=== PATIENT | female | born 1975 | race Two or more races ===

== ENCOUNTER → 2020-03-22 08:22 | Outpatient (REF) | payer OTHER, SELFPAY ==
--- NOTE | 2020-03-22 08:29 | CA_ITS ---
Transthoracic Echocardiogram Patient (Last, First, Middle): Linda Wilson, Gender: Female Date of : 1975 Age: 44 Procedure Date: 03/22/2020 Procedure Type: Transthoracic Echocardiogram Location: OP Height: 165.1 cm Weight: 90.72 kg BSA: 1.98 m2 Heart Rate: bpm BP: 128 / 70 mmHg [employer]: Referring MD: Benito Haynes DO Symptoms: R00.0 - Tachycardia, unspecified Study Quality: Fair ECG Rhythm: Sinus Conclusions: - The left ventricular systolic function is normal. The visually estimated ejection fraction is between 55-60%. - No obvious valvular pathology seen on this study. Findings Left Ventricle Normal left ventricular cavity size. There is normal left ventricular wall thickness. The left ventricular systolic function is normal. The visually estimated ejection fraction is between 55-60%. There is no evidence of regional wall motion abnormalities. E/E prime ratio is between 8 and 15 consistent with indeterminate filling pressures. Evidence suggests grade I (mild) diastolic dysfunction. Right Ventricle There is normal right ventricular systolic function. Top normal right ventricular size. Atria The left atrium is normal in size. The right atrium is normal in size. Aortic Valve There is a normal trileaflet aortic valve. There is no aortic valve stenosis. There is no aortic valve regurgitation. Mitral Valve The mitral valve appears normal. There is trace mitral valve regurgitation. There is no mitral valve stenosis. Pulmonic Valve The pulmonic valve was not well visualized. Tricuspid Valve Normal tricuspid valve structure. There is trace tricuspid valve regurgitation. The pulmonary artery systolic pressure is normal. Great Vessels The aortic annulus, sinuses of valsalva, and asc aorta are normal in size. Venous The inferior vena cava is normal in size and collapses greater than 50% with inspiration. Pericardium/Pleural There is no evidence of pericardial effusion. Prior Study Comparison No prior study available for comparison. Recommendations, Care & Conclusions No obvious valvular pathology seen on this study. Measurements 2D Linear Measurements IVSd: 1.02 0.6-0.9/0.6-1.0 cm LVIDd: 4.41 3.9-5.3/4.2-5.9 cm LVIDd Index: 2.23 2.4-3.2/2.2-3.1 cm/m2 LVIDs: 2.77 2.0-3.6 cm LVPWd: 1.04 0.7-1.1 cm Ao Root: 3.00 2.1-3.5 cm LA Diam: 3.70 2.7-3.8/3.0-4.0 cm LAIDs Index: 1.87 1.5-2.3 cm/m2 LV Mass: 192.48 67-162/88-224 g LV Mass Index: 97.21 43-95/49-115 g/m2 LVOT Diam: 2.20 3.0+(-)1.3 cm Mitral Valve MV Pk E: 0.71 MV PK A: 0.74 MV Decel Time: 165.00 E/A: 1.00 E'Lateral: 6.96 E'Medial: 5.44 E/E' Med: 13.00 E/E' Lat: 10.20 PHT: 48.00 MVA PHT: 4.58 Decel [place]: 4.28 Aortic Valve AoV Pk Edilberto: 1.42 AoV Mn Edilberto: 0.99 AoV VTI: 0.34 AoV Pk Grad: 8.00 Aov Mn Grad: 5.00 RAVINDRA Cont.VTI: 2.94 LVOT LVOT Pk Edilberto: 0.97 LVOT Mn Edilberto: 0.64 LVOT VTI: 0.26 LVOT Pk Grad: 4.00 LVOT Mn Grad: 2.00 LVOT Diam: 2.20 LVOT Area: 3.80 Diastolic Function MV Pk E: 0.71 MV Pk A: 0.74 E/A: 1.00 E'Medial: 5.44 E/E' Med: 13.00 E' Laterial: 6.96 E/E' Lat: 10.20 Tricuspid Valve TR Pk Edilberto: 2.28 TR Pk Grad: 21.00 RA Press: 3.00 RVSP: 24.00 Great Vessels Aorta Ao Root-2D: 3.00 2.0-3.7 cm Ao Asc: 3.30 2.1-3.4 cm Pulmonary Valve PV Pk Edilberto: 1.11 Peak PV Grad: 5.00 Updated in Other Vendor System with Status of Final Iraj Bartholomew MD electronically signed on 03/22/2020 2:25:03 PM with status of Final
== END ==
LOC: HO.CARD 08:22
PROVIDERS: PCP Hospitalist; Visit Provider Hospitalist
DX: R00.0 Tachycardia, unspecified (principal)
CPT/HCPCS: 93306

== ENCOUNTER → 2020-04-01 09:27 | Outpatient (REF) | payer OTHER, SELFPAY ==
--- NOTE | 2020-04-01 09:32 | ECG_ITS ---
Hook-up date: 2020-04-01 09:59:00 Duration: 47:59:00 Test Indications: TACHYCARDIA Medications: 334588 QRS complexes 3 Ventricular ectopics which represent <1 % of total QRS comp. * Supraventricular ectopics which represent % of total QRS comp. * Paced QRS complexs which represent % of total QRS comp. VENTRICULAR ECTOPY 3 Isolated 0 Bigeminal Cycles 0 Couplets 0 Runs 0 Beats in Runs * Beats LONGEST at * BPM at :: -- * Beats FASTEST at * BPM at :: -- SUPRAVENTRICULAR ECTOPY * Isolated * Couplets * Runs * Beats in Runs * Beats LONGEST at * BPM at :: -- * Beats FASTEST at * BPM at :: -- HEART RATES 68 MIN at 23:23:30 2020-04-01 94 AVG 133 MAX at 06:49:53 2020-04-03 LONGEST RR 0.9040 secs at 23:23:27 2020-04-01 S-T LEVELS Channel 1 - 128 mm at 09:59:00 2020-04-01 - 128 mm at 09:59:00 2020-04-01 Channel 2 - 128 mm at 09:59:00 2020-04-01 - 128 mm at 09:59:00 2020-04-01 Channel 3 - 128 mm at 02:91:81 -- - 128 mm at 02:91:81 Underlying rhythm is sinus; Average ventricular rate 94/min; About 29% of the time, ventricular rate >100/min; No significant ectopy or arrhythmias; Patient did not report any symptoms in the diary Referred By: Benito Haynes Overread By: DENISE BRISENO
== END ==
LOC: HO.CARD 09:27
PROVIDERS: PCP Hospitalist; Visit Provider Hospitalist
DX: R00.0 Tachycardia, unspecified (principal)
CPT/HCPCS: 93225; 93226

== ENCOUNTER 2020-04-20 14:47 | Outpatient (REF) | payer OTHER, SELFPAY ==
[2020-04-20 16:32] LABS: MANUAL DIFF FLAG NO
[2020-04-20 16:37] LABS: Basophils Percent Auto 0.2 % (0-2); Eosinophils Absolute Auto 0.2 X10*3/uL (0.0-0.4); Eosinophils Percent Auto 1.8 % (0-4); Hemoglobin 12.4 g/dl (12.0-16.0); Imm Gran Abs Auto 0.03 X10*3/uL (0.00-0.03); Imm Gran Pct Auto 0.3 % (0.0-0.4); Lymphocytes Absolute Auto 2.8 X10*3/uL (1.2-4.9); Lymphocytes Percent Auto 28.4 % (20-40); Mean Corpuscular HGB Conc 32.6 g/dl (31.0-35.0); Mean Corpuscular Hemoglobin 29.6 pg (27.0-33.0); Mean Corpuscular Volume 90.7 fL (80-98); Mean Platelet Volume 9.3 fL (9.4-12.3); Monocytes Absolute Auto 0.8 X10*3/uL (0.1-1.2); Monocytes Percent Auto 7.7 % (2-11); Neutrophils Absolute Auto 6.1 X10*3/uL (2.0-8.3); Neutrophils Percent Auto 61.6 % (45-73); Platelet Count 380 X10*3/uL (160-400); Red Blood Count 4.19 X10*6/uL (4.20-5.50); White Blood Count 9.9 X10*3/uL (4.8-10.8)
[2020-04-20 16:57] LABS: Alanine Aminotransferase 8 U/L (0-31); Albumin Level 4.1 g/dL (3.5-5.0); Alkaline Phosphatase 91 U/L (39-117); Anion Gap 10 (12-20); Aspartate Amino Transferase 11 U/L (5-31); Bilirubin Total 0.3 mg/dL (0.0-1.0); Blood Urea Nitrogen 12 mg/dL (9-16); Carbon Dioxide 29 mmol/L (22-29); Chloride 104 mmol/L (96-108); Estimated Glomerular Filt Rate > 60; Glucose Random 83 mg/dL (60-115); Potassium 4.6 mmol/l (3.3-5.1); Sodium 138 mmol/L (135-145); Total Protein 6.7 g/dL (6.5-8.0)
[2020-04-20 17:21] LABS: TSH reflex Free T4 0.01 mIU/mL (0.32-4.0)
[2020-04-20 17:53] LABS: Free T4 (Free Thyroxine) 1.46 ng/dL (0.71-1.85)
== END 2020-04-20 14:48 | disposition home or self-care (01) ==
LOC: HO.LAB 14:47
PROVIDERS: Absent Provider Nurse Practitioner Family; PCP Internal Medicine; Visit Provider Internal Medicine Cardiovascular Disease
DX: R00.0 Tachycardia, unspecified (principal); R79.89 Other specified abnormal findings of blood chemistry
CPT/HCPCS: 36415; 80053; 84439; 84443; 85025; 99202

== ENCOUNTER 2022-08-22 06:09 | Outpatient (REF) | payer OTHER, SELFPAY ==
[2022-08-22 07:46] LABS: Alanine Aminotransferase 15 U/L (0-31); Alkaline Phosphatase 88 U/L (39-117); Anion Gap 14 (12-20); Aspartate Amino Transferase 11 U/L (5-31); Bilirubin Total 0.3 mg/dL (0.0-1.0); Blood Urea Nitrogen 14 mg/dL (9-16); Calcium 8.9 mg/dL (8.4-10.2); Carbon Dioxide 23 mmol/L (22-29); Chloride 107 mmol/L (96-108); Cholesterol 196 mg/dL; Estimated Glomerular Filt Rate > 60; Glucose Fasting 96 mg/dL (60-99); HDL Cholesterol 37 mg/dL; LDL Cholesterol Calculated 139 mg/dl; Potassium 4.5 mmol/L (3.3-5.1); Sodium 139 mmol/L (135-145); Total Protein 6.6 g/dL (6.5-8.0); Triglycerides 102 mg/dL
[2022-08-22 08:04] LABS: TSH reflex Free T4 3.74 uIU/mL (0.32-4.0)
== END 2022-08-22 06:10 | disposition home or self-care (01) ==
LOC: HO.LAB 06:09
PROVIDERS: PCP Hospitalist; Visit Provider Hospitalist
DX: E66.9 Obesity, unspecified (principal); E03.9 Hypothyroidism, unspecified; M06.9 Rheumatoid arthritis, unspecified
CPT/HCPCS: 36415; 80053; 80061; 84443

== ENCOUNTER 2022-09-15 12:50 | Emergency (ER) | payer OTHER, SELFPAY ==
--- NOTE | ~2022-09-15 | XR_ITS ---
EXAMINATION: XR CHEST CLINICAL INFORMATION: Shortness of breath. COMPARISON: Chest radiograph dated 03/23/2013. TECHNIQUE: 2 views of the chest were obtained. FINDINGS: No significant abnormality is noted involving the heart, lungs, mediastinum, bony thorax or soft tissues. XR/XR chest 2V IMPRESSION: No acute cardiopulmonary process.
--- NOTE | ~2022-09-15 | US_ITS ---
EXAMINATION: Noninvasive assessment of the left lower extremities with ARTERIAL DUPLEX CLINICAL INFORMATION: Left lower extremity pain and swelling TECHNIQUE: Duplex Doppler techniques with waveform analysis and measurement of velocities in the left common femoral, profunda femoris, superficial femoral, popliteal and tibial arteries were performed. COMPARISON: None FINDINGS: DIRECT DUPLEX DOPPLER FINDINGS: LEFT LEG: Common femoral artery: 83.9 cm/s, phasicity: Triphasic Profunda femoris artery: 52.9 cm/s, phasicity: Triphasic Superficial femoral artery (proximal): 88.8 cm/s, phasicity: Triphasic Superficial femoral artery (mid): 92.2 cm/s, phasicity: Triphasic Superficial femoral artery (distal): 107 cm/s, phasicity: Triphasic Popliteal artery: 66.3 cm/s, phasicity: Triphasic Posterior tibial artery: 83.4 cm/s, phasicity: Triphasic Peroneal artery: 44.1 cm/s, phasicity: Triphasic US/US arterial duplex LE IMPRESSION: Normal duplex arterial ultrasound of the left lower extremity
--- NOTE | ~2022-09-15 | US_ITS ---
EXAMINATION: US VENOUS ULTRASOUND WITH DOPPLER LOWER EXTREMITY, LEFT CLINICAL INFORMATION: Left lower extremity pain and swelling with ambulation. COMPARISON: None available. TECHNIQUE: Ultrasound of the deep veins is performed from the hip to the calf with compression sonography and color and pulse Doppler assessment. Spectral analysis with color-flow imaging is performed. FINDINGS: There is normal venous compression and respiratory variation and augmented flow. The visualized common femoral vein, superficial femoral vein, profunda femoral vein, popliteal vein, and the trifurcation region shows no evidence of deep venous thrombosis. No left popliteal cyst. The subcutaneous soft tissues are unremarkable. Additional scanning in the left foot was performed with 3 circumscribed hypoechoic foci with smooth margins identified measuring 1.1 x 0.9 x 1.0 cm, 1.3 x 0.5 x 1.1 cm and 1.0 x 0.6 x 0.9 cm. Color Doppler showed no associated hypervascularity. US/US venous duplex LE IMPRESSION: 1. No evidence for deep venous thrombosis in the visualized veins of the left lower extremity. 2. Hypoechoic nodules in the left foot are nonspecific, but demonstrate benign features. This could represent synovial cyst, ganglion cyst or fibroma's. These findings persist or enlarge, contrast-enhanced MRI should be considered for additional characterization.
--- NOTE | 2022-09-15 12:51 | ED_ITS ---
HPI - General Adult General Chief complaint: General Medical Stated complaint: sent from urgent care, blood clot? Time Seen by Provider: 09/15/22 13:02 Source: patient, RN notes reviewed and old records reviewed Mode of arrival: ambulatory History of Present Illness HPI narrative: 47-year-old female with a past medical history of rheumatoid arthritis, tachycardia, hypothyroid, presenting to the ED sent in from urgent care for left lower extremity swelling/pain and reportedly decreased pulses. Patient reports increasing left foot/ankle pain radiating up lower extremity x1 month with intermittent SOB. Admits has been following with honing machine try out setter who increased her Methotrexate without relief, had outpatient x-rays which were unremarkable on 08/08. Denies recent injury/trauma or fall, numbness/tingling, fever/chills, oral OCPs. Patient admits she does travel often, most recently to [place], and is cigarette smoker. Onset (ago): week(s) Related Data Home Medications Medication Instructions Recorded Confirmed adalimumab 40 mg/0.8 mL 40 mg subcut Q2W 08/14/22 08/14/22 subcutaneous syringe kit (Humira) folic acid 1 mg tablet 1 mg PO DAILY 08/14/22 08/14/22 methotrexate (PF) 15 mg/0.3 mL 15 mg subcut QWEEK 08/14/22 08/14/22 subcutaneous auto-injector prednisone 10 mg tablet 10 mg PO DAILY 08/14/22 08/14/22 Previous Rx's Medication Instructions Recorded levothyroxine 137 mcg tablet 137 mcg PO DAILY 30 days #30 tabs 09/12/22 Allergies Allergy/AdvReac Type Severity Reaction Status Date / Time codeine Allergy Mild Unknown Verified 09/15/22 12:53 Codeine Phosphate Allergy Intermediate Unknown Uncoded 08/14/22 10:07 Review of Systems Review of Systems: Constitutional: No Fever, No Chills ENT/Mouth: No Ear Pain, No Nasal Congestion, No sore throat, No Rhinorrhea, No Swallowing Difficulty Cardiovascular: No Chest Pain, + SOB, +edema Respiratory: No Cough, No Sputum, No Wheezing Gastrointestinal: No Nausea, No Vomiting, No Diarrhea, No Constipation, No Abdominal pain Musculoskeletal: + joint pain, No Myalgias, + Joint Swelling Skin: No Skin Lesions, No rash Neuro: No Weakness, No Numbness, No Paresthesias Yes all other systems are reviewed and are negative Constitutional: Constitutional: Reports as per [facility] Past Medical History Attestation statement: The following information was validated with the patient. Source: old records reviewed Medical History Physical exam Surgical History History of lumbar surgery Family History Family History Father No problems noted. Mother CVD (cardiovascular disease) Hypertension Chronic mental illness Social History Social History Household Members: Significant Other and Children Housing: Apartment Alcohol intake: never Patient Tobacco Use Status: Current everyday Tobacco user Cigarette Packs Per Day: 1 e-Cigarette/Vaping Use: Never Used Advance Directives: No Physical Exam ED Vital Signs: Vital Signs - 24 hr 09/15/22 12:53 Temperature 97.2 F Pulse Rate 97 Respiratory Rate 18 Blood Pressure 128/82 Pulse Oximetry 98 Oxygen Delivery Method Room Air BMI result Body Mass Index 34.4 Const General: cooperative, healthy appearing and no acute distress Orientation/consciousness: patient oriented x3 Limitations: no limitations HENMT Head: Yes normal to inspection and Yes atraumatic Ears: hearing grossly normal bilaterally General nose exam: Normal external nose present Face and sinus: Yes normal facial exam Eyes General: appearance normal, both eyes and all related structures EOM: EOMs intact bilaterally Neck Neck: Yes normal visual inspection and Yes no meningeal signs Resp Effort & Inspection: normal respiratory effort and no respiratory distress Auscultation: clear to auscultation bilaterally, no crackles, no rhonchi and no wheezes Cardio Rate: regular rate Heart sounds: S1 normal heart sound present and S2 normal heart sound present Peripheral pulses: Peripheral pulses 2+ throughout Skin Rashes: no rashes Wounds: no wounds Neuro General: patient oriented x3, tone normal and no meningeal signs Gait exam (Neuro): Normal gait present Extrem Other: + left foot/ankle with mild swelling and tenderness. No appreciable pitting edema, no calf tenderness. Pulses WNL, equal bilaterally. No erythema/warmth. Full range of motion intact. Course Course Course Narrative: RME performed by Ligia Beverly PA-C. Patient is a 47 year old assigned female at presenting to the emergency department with left leg swelling and pain. Labs and imaging ordered. Patient placed back in the waiting room pending room availability and results. -1524--mild leukocytosis at 12.4 likely from chronic prednisone use. D-dimer WNL, PE/DVT unlikely -labs otherwise reassuring. CRP minimally elevated US arterial duplex LE LT IMPRESSION: Normal duplex arterial ultrasound of the left lower extremity US venous duplex LE LT IMPRESSION: 1. No evidence for deep venous thrombosis in the visualized veins of the left lower extremity. 2. Hypoechoic nodules in the left foot are nonspecific, but demonstrate benign features. This could represent synovial cyst, ganglion cyst or fibroma's. These findings persist or enlarge, contrast-enhanced MRI should be considered for additional characterization. XR chest 2V IMPRESSION: No acute cardiopulmonary process. Results discussed with patient including worrisome signs and symptoms and strict return precautions, and when to return to the emergency department. They verbalized understanding and feel safe for discharge at this time. Medications Administered Discontinued Medications Generic Name Dose Route Start Last Admin Trade Name Freq PRN Reason Stop Dose Admin Sodium Chloride 1,000 mls @ 999 mls/hr 09/15/22 14:00 09/15/22 15:28 Ns IV 09/15/22 15:00 Infused .Q1H1M ANEL Infusion Medical Decision Making Medical Decision Making [facility] Narrative: 47-year-old female with a past medical history of rheumatoid arthritis, tachycardia, hypothyroid, presenting to the ED sent in from urgent care for left lower extremity swelling/pain and reportedly decreased pulses. On exam vital signs stable, NAD, nontoxic appearing, physical exam as noted above. Distal pulses equally intact, mild left foot/ankle swelling with tenderness, no pitting edema or calf tenderness, lungs CTA. Concern for possible DVT vs PE vs PAD vs RA flare vs sprain. Lower suspicion for fracture with outpatient negative x- rays, low suspicion for septic joint/arthritis. Unlikely gout Plan: Labs, arterial and venous duplex ultrasound, CXR Please refer to course for remaining clinical decision making, interpretation of labs/imaging results, and discussions with consultants and/or family members. Differential Diagnosis Differential Diagnoses: The differential diagnosis associated with the presentation includes As above Admission/Observation Consideration of admission/observation: Escalation of care including admission/observation considered Lab Data [facility] Lab Attestation statement: I reviewed the patient's lab results. 09/15/22 14:02 09/15/22 14:02 Labs: Lab Results 09/15/22 09/15/22 09/15/22 Range/Units 14:02 14:02 14:02 WBC 12.4 H (4.8-10.8) X10*3/uL RBC 3.91 L (4.20-5.50) X10*6/uL Hgb 12.1 (12.0-16.0) g/dl Hct 35.9 L (37.0-47.0) % MCV 91.8 (80.0-98.0) fL MCH 30.9 (27.0-33.0) pg MCHC 33.7 (31.0-35.0) g/dl RDW 14.8 (11.0-16.0) % Plt Count 390 (160-400) X10*3/uL MPV 9.1 L (9.4-12.3) fL Immature Gran % (Auto) 0.4 (0.0-0.4) % Neut % (Auto) 59.7 (45-73) % Lymph % (Auto) 30.1 (20-40) % [place] % (Auto) 8.1 (2-11) % Eos % (Auto) 1.5 (0-4) % Baso % (Auto) 0.2 (0-2) % Lymph # (Auto) 3.7 (1.2-4.9) X10*3/uL [place] # (Auto) 1.0 (0.1-1.2) X10*3/uL Eos # (Auto) 0.2 (0.0-0.4) X10*3/uL Baso # (Auto) 0.0 (0.0-0.2) X10*3/uL Abs Immat Gran (auto) 0.05 H (0.00-0.03) X10*3/uL Absolute Neuts (auto) 7.4 (2.0-8.3) x10*3/uL Absolute Nucleated RBC 0.000 (0.0-0.012) X10*3/uL Nucleated RBC % (auto) 0.0 (0.0-0.2) /100WBC ESR (0-20) MM/HR PT 11.1 (10.0-13.1) SEC INR 1.0 (0.9-1.1) APTT 30.0 (26.0-36.4) SEC D-Dimer High Sensitivty NG/ML Sodium 139 (135-145) mmol/L Potassium 4.5 (3.3-5.1) mmol/L Chloride 109 H (96-108) mmol/L Carbon Dioxide 24 (22-29) mmol/L Anion Gap 11 L (12-20) BUN 12 (9-16) mg/dL Creatinine 0.74 (0.5-1.4) mg/dL Estim Creat Clear Calc 105.3 Estimated GFR > 60 Random Glucose 89 (60-115) mg/dL Calcium 9.3 (8.4-10.2) mg/dL Magnesium 2.2 (1.6-2.6) mg/dL Total Bilirubin 0.4 (0.0-1.0) mg/dL AST 13 (5-31) U/L ALT 12 (0-31) U/L Alkaline Phosphatase 80 (39-117) U/L C-Reactive Protein 0.82 H (< or = 0.50) mg/dL Total Protein 6.8 (6.5-8.0) g/dL Albumin 4.0 (3.5-5.0) g/dL 09/15/22 09/15/22 Range/Units 14:02 14:02 WBC (4.8-10.8) X10*3/uL RBC (4.20-5.50) X10*6/uL Hgb (12.0-16.0) g/dl Hct (37.0-47.0) % MCV (80.0-98.0) fL MCH (27.0-33.0) pg MCHC (31.0-35.0) g/dl RDW (11.0-16.0) % Plt Count (160-400) X10*3/uL MPV (9.4-12.3) fL Immature Gran % (Auto) (0.0-0.4) % Neut % (Auto) (45-73) % Lymph % (Auto) (20-40) % [place] % (Auto) (2-11) % Eos % (Auto) (0-4) % Baso % (Auto) (0-2) % Lymph # (Auto) (1.2-4.9) X10*3/uL [place] # (Auto) (0.1-1.2) X10*3/uL Eos # (Auto) (0.0-0.4) X10*3/uL Baso # (Auto) (0.0-0.2) X10*3/uL Abs Immat Gran (auto) (0.00-0.03) X10*3/uL Absolute Neuts (auto) (2.0-8.3) x10*3/uL Absolute Nucleated RBC (0.0-0.012) X10*3/uL Nucleated RBC % (auto) (0.0-0.2) /100WBC ESR 29 H (0-20) MM/HR PT (10.0-13.1) SEC INR (0.9-1.1) APTT (26.0-36.4) SEC D-Dimer High Sensitivty 194 NG/ML Sodium (135-145) mmol/L Potassium (3.3-5.1) mmol/L Chloride (96-108) mmol/L Carbon Dioxide (22-29) mmol/L Anion Gap (12-20) BUN (9-16) mg/dL Creatinine (0.5-1.4) mg/dL Estim Creat Clear Calc Estimated GFR Random Glucose (60-115) mg/dL Calcium (8.4-10.2) mg/dL Magnesium (1.6-2.6) mg/dL Total Bilirubin (0.0-1.0) mg/dL AST (5-31) U/L ALT (0-31) U/L Alkaline Phosphatase (39-117) U/L C-Reactive Protein (< or = 0.50) mg/dL Total Protein (6.5-8.0) g/dL Albumin (3.5-5.0) g/dL Radiology Impression Discussion of test interpretation with radiology: I have reviewed the radiologist's reading. External Record Review External record reviewed: Inpatient record, Office record, Outpatient record, Prior outpatient labs, Prior outpatient radiology, Primary care record and Outside ED record Tests considered The following testing was considered but not selected: As above Discharge Plan Discharge Clinical Impression: Left leg swelling, Left foot pain Patient Disposition: Home, Self-Care Instructions: Arthralgia (ED) Additional Instructions: Your ultrasounds were negative for blood clot or arterial stenosis Your blood work was also reassuring Please wear compression stocking Elevate your legs Continue home prescribed medications Follow-up with her doctor and your honing machine try out setter Prescriptions: No Action levothyroxine 137 mcg tablet 137 mcg PO DAILY 30 Days Qty: 30 3RF prednisone 10 mg tablet 10 mg PO DAILY folic acid 1 mg tablet 1 mg PO DAILY Humira 40 mg/0.8 mL syringe kit 40 mg subcut Q2W methotrexate (PF) 15 mg/0.3 mL auto-injector 15 mg subcut QWEEK Referrals: Charo Gonzalez NP [Primary Care Provider] - 3 days Interventions: ED Discharge Assessment Last Done: 09/15/22 15:35 Discharge Date/Time: 09/15/22 15:36
[2022-09-15 12:53] VITALS: BP 128/82; PULSE 97; RESP 18; TEMP 36.2; O2SAT 98; BMI 34.4
[2022-09-15] MEDS: 0.9 % Sodium Chloride 1,000 ML 999 ML IV (14:22)
[2022-09-15 14:23] LABS: MANUAL DIFF FLAG NO
[2022-09-15 14:30] LABS: Basophils Percent Auto 0.2 % (0-2); Eosinophils Absolute Auto 0.2 X10*3/uL (0.0-0.4); Eosinophils Percent Auto 1.5 % (0-4); Hematocrit 35.9 % (37.0-47.0); Hemoglobin 12.1 g/dl (12.0-16.0); Imm Gran Abs Auto 0.05 X10*3/uL (0.00-0.03); Imm Gran Pct Auto 0.4 % (0.0-0.4); Lymphocytes Absolute Auto 3.7 X10*3/uL (1.2-4.9); Lymphocytes Percent Auto 30.1 % (20-40); Mean Corpuscular HGB Conc 33.7 g/dl (31.0-35.0); Mean Corpuscular Hemoglobin 30.9 pg (27.0-33.0); Mean Corpuscular Volume 91.8 fL (80.0-98.0); Mean Platelet Volume 9.1 fL (9.4-12.3); Monocytes Percent Auto 8.1 % (2-11); Neutrophils Absolute Auto 7.4 x10*3/uL (2.0-8.3); Neutrophils Percent Auto 59.7 % (45-73); Platelet Count 390 X10*3/uL (160-400); Red Blood Count 3.91 X10*6/uL (4.20-5.50); Red Cell Distribution Width 14.8 % (11.0-16.0); White Blood Count 12.4 X10*3/uL (4.8-10.8)
[2022-09-15 14:47] LABS: Prothrombin Time 11.1 SEC (10.0-13.1)
[2022-09-15 14:50] LABS: D Dimer High Sensitivity 194 NG/ML
[2022-09-15 15:16] LABS: Alanine Aminotransferase 12 U/L (0-31); Alkaline Phosphatase 80 U/L (39-117); Anion Gap 11 (12-20); Aspartate Amino Transferase 13 U/L (5-31); Bilirubin Total 0.4 mg/dL (0.0-1.0); Blood Urea Nitrogen 12 mg/dL (9-16); C Reactive Protein 0.82 mg/dL (< or = 0.50); Calcium 9.3 mg/dL (8.4-10.2); Carbon Dioxide 24 mmol/L (22-29); Chloride 109 mmol/L (96-108); Creatinine Clr Calc Pharmacy 105.3; Estimated Glomerular Filt Rate > 60; Glucose Random 89 mg/dL (60-115); Magnesium 2.2 mg/dL (1.6-2.6); Potassium 4.5 mmol/L (3.3-5.1); Sodium 139 mmol/L (135-145); Total Protein 6.8 g/dL (6.5-8.0)
[2022-09-15 15:30] LABS: Erythrocyte Sedimentation Rate 29 MM/HR (0-20)
== END 2022-09-15 15:36 | disposition home or self-care (01) ==
PROVIDERS: Physician Assistant; Physician Assistant Medical; Emergency Provider Emergency Medicine Emergency Medical Services; PCP Hospitalist
DX: M79.662 Pain in left lower leg (principal); M79.89 Other specified soft tissue disorders; F17.210 Nicotine dependence, cigarettes, uncomplicated
CPT/HCPCS: 36415; 71046; 80053; 83735; 85025; 85379; 85610; 85652; 85730; 86140; 93926; 93971; 96360; 99283; 99284

== ENCOUNTER 2022-09-25 09:58 | Outpatient (REF) | payer OTHER, SELFPAY ==
--- NOTE | ~2022-09-25 | MM_ITS ---
EXAMINATION: MM SCREENING DIGITAL BREAST TOMOSYNTHESIS, BILATERAL CLINICAL INFORMATION: Screening. Asymptomatic. Benign right stereotactic biopsy 07/21/2019 (fibrocystic changes and microcalcifications, no atypia or malignancy). The lifetime risk of breast cancer based on the Tyrer-Cuzick Model is 8%. COMPARISON: Mammography: 07/21/2019, 07/13/2019, 02/23/2017 (baseline); ultrasound right breast 03/12/2017. TECHNIQUE: Digital breast tomosynthesis is performed in both the craniocaudal and mediolateral oblique views along with computer-aided detection (CAD). Synthesized 2D images are generated from the tomosynthesis. FINDINGS: There are scattered areas of fibroglandular density (ACR BI-RADS breast composition Category b). Breast tissue composition borders on heterogeneously dense. Right breast parenchymal pattern is similar to prior studies. There is a biopsy clip marker mid 6:00 position. The calcifications are no longer demonstrated. No recurrent calcifications. Small cyst anterior upper right breast is decreased since 2017. Left breast has new circumscribed nodule mid 3:00 position measuring around 0.8 cm, possibly a cyst. Patient will be recalled for additional imaging. Remainder of left breast is unremarkable. No abnormal calcifications. Bilateral axilla and skin contours are unremarkable. MM/MM tomosynthesis screening BI IMPRESSION: Left: -Circumscribed 8 mm nodule mid 3:00 position, possibly a cyst. Right: -No mammographic evidence of malignancy. ASSESSMENT: BI-RADS 0: Incomplete - Need Additional Imaging Evaluation RECOMMENDATION: 1. Targeted ultrasound left breast. 2. Radiology department staff will contact the patient for additional imaging. This patient's information was entered into a reminder system with a target due date for their next mammogram.
== END 2022-09-25 09:59 | disposition home or self-care (01) ==
LOC: HO.MAMMO 09:58
PROVIDERS: PCP Hospitalist; Visit Provider Hospitalist
DX: Z12.31 Encounter for screening mammogram for malignant neoplasm of breast (principal)
CPT/HCPCS: 77063; 77067

== ENCOUNTER 2022-10-05 12:43 | Outpatient (REF) | payer OTHER, SELFPAY ==
--- NOTE | ~2022-10-05 | US_ITS ---
EXAMINATION: US DIAGNOSTIC ULTRASOUND BREAST, LEFT CLINICAL INFORMATION: Recall from screening for new circumscribed nodule 0.8 cm mid 3:00 position, possibly a cyst. COMPARISON: Mammography 09/25/2022, 07/09/2019 TECHNIQUE: Ultrasound left breast is targeted to the outer quadrants using grayscale imaging and color Doppler without and with harmonics. FINDINGS: There is a simple cyst 3:00 position 7 cm from nipple measuring approximately 8 x 6 mm corresponding to the finding on mammography. Small adjacent satellite cyst present under 5 mm. There is increased through-transmission of sound. No associated color flow. No solid mass or architectural abnormality. Results are discussed with the patient at time of visit. US/US breast LT limited IMPRESSION: - Simple cyst 3:00 position corresponding to finding on mammography. ASSESSMENT: BI-RADS 2: Benign RECOMMENDATION: Routine annual mammography screening. This patient's information was entered into a reminder system with a target due date for their next mammogram.
== END 2022-10-05 12:44 | disposition home or self-care (01) ==
LOC: HO.MAMMO 12:43
PROVIDERS: PCP Hospitalist; Visit Provider Hospitalist
DX: N63.25 Unspecified lump in the left breast, overlapping quadrants (principal)
CPT/HCPCS: 76642

== ENCOUNTER 2022-11-07 10:22 | Outpatient (AMB) | payer OTHER, SELFPAY ==
--- NOTE | 2022-11-07 10:24 | MHC.OFFVIS ---
Intake Vital Signs 11/07/22 10:25 Height 5 ft 5 in Weight 205 lb 0.478 oz BMI 34.1 Intake Visit Reasons: New Pt colonoscopy screening Intake Note: Linda presents in the office as a new patient for a colo screening. CC: No concerns today Allergies codeine Allergy (Mild, Verified 11/07/22 10:27) Unknown Codeine Phosphate Allergy (Intermediate, Uncoded 11/07/22 10:27) Unknown HPI HPI Comments History of Present Illness Details 47 year old female presenting to the office for discussion of colon cancer screening. Patient is at average risk of colon cancer due to no family history of colon cancer or advanced colon polyps in first degree relatives. Mom has polyps but colos every 5 years so likely not advanced polyps. Patient does not have any other gastrointestinal symptoms to include abdominal pain, nausea, vomiting, diarrhea, blood in stool, weight loss. Labs reviewed to confirm patient does not have anemia. Other PMH is pertinent for RA (on MTX and etanercept), and hypothyroidism. Smokes 1 PPD x 20 years. Rare etOH use. PFSH Medical History Physical exam Surgical History History of lumbar surgery Family History Father No problems noted. Mother CVD (cardiovascular disease) Hypertension Chronic mental illness Social History Household Members: Significant Other and Children Housing: Apartment Alcohol intake: never Patient Tobacco Use Status: Current everyday Tobacco user Cigarette Packs Per Day: 1 e-Cigarette/Vaping Use: Never Used Review of Systems Const All systems reviewed & are unremarkable except as noted in HPI and below Physical Exam Vital Signs: BMI result Body Mass Index 34.1 Gen appear: NAD, well nourished HEENT: no icterus, no cervical lymphadenopathy Chest: clear to auscultation CVS: Regular S1/S2 Abd: soft, nontender, nondistended Ext: no peripheral edema Neuro: A/Ox3, noted to move all extremities spontaneously Assessment & Plan Assessment & Plan (1) Screen for colon cancer: Code(s): Z12.11 - Encounter for screening for malignant neoplasm of colon (2) Tobacco abuse: Code(s): Z72.0 - Tobacco use Plan At average risk for CRC. Offered both one step and two step screening. Pt prefers one step testing i.e colonoscopy. Procedure and instructions reviewed in detail. Split PEG prep Rxed and instructions given as a handout as well. She is aware this will be booked on an elective basis. Follow up after colo as needed. Medications: New peg 3350-electrolytes 236-22.74-6.74 -5.86 gram (Golytely) as per split prep instructions, until fecal effluent is clear 240 mL PO Q10M 1 day 4,000 mL 0RF colonoscopy Coding Level of Care Code New Pt Level 3 (72271) Diagnoses Screen for colon cancer Z12.11 Tobacco abuse Z72.0
[2022-11-07 10:25] VITALS: BMI 34.1
== END 2022-11-07 11:17 | disposition home or self-care (01) ==
PROVIDERS: PCP Hospitalist; Visit Provider Internal Medicine
DX: Z12.11 Encounter for screening for malignant neoplasm of colon (principal); Z72.0 Tobacco use
CPT/HCPCS: 99203

== ENCOUNTER → 2022-11-07 10:22 | Outpatient (BNVA) | payer OTHER, SELFPAY | PROVIDERS: PCP Hospitalist; Visit Provider Internal Medicine ==

== ENCOUNTER 2022-12-10 08:34 | Outpatient (REF) | payer OTHER, SELFPAY ==
[2022-12-11 02:20] LABS: TSH reflex Free T4 2.53 uIU/mL (0.32-4.0)
== END 2022-12-10 08:35 | disposition home or self-care (01) ==
LOC: HO.LAB 08:34
PROVIDERS: PCP Hospitalist; Visit Provider Nurse Practitioner Family
DX: E03.9 Hypothyroidism, unspecified (principal)
CPT/HCPCS: 36415; 84443

== ENCOUNTER 2023-06-04 11:19 | Outpatient (AMB) | payer OTHER, SELFPAY ==
[2023-06-04 11:38] VITALS: BP 124/64; PULSE 77; O2SAT 97; BMI 33.9
--- NOTE | 2023-06-04 11:38 | MHC.PC.OV ---
Vital Signs 06/04/23 11:38 Height 5 ft 5 in Weight 203 lb 8 oz BMI 33.9 BP 124/64 Blood Pressure Location Lt brachial Pulse 77 Pulse Source Pulse Oximeter Pulse Oximetry (%) 97 Oxygen Delivery Method Room Air Intake Visit Reasons: 3mth Weight/Hypothyroidism Trans. from [facility] Intake Note: Patient is here for follow up on weight and hypothyroid, patient notices spots on her legs on her face, after taking enbrel with methotrexate, prednisone and folic acid. Allergies codeine Allergy (Mild, Verified 06/04/23 11:41) Unknown Codeine Phosphate Allergy (Intermediate, Uncoded 06/04/23 11:41) Unknown Tobacco use date assessed: 06/04/23 Dental Screening Dental Screen Date: 06/04/23 Did you have a dental visit in the last 12 months?: No Did you have a dental problem in the last 6 months where you did not have access to dental care?: No Was dental information given to patient?: Patient has dentist HPI 3mth Weight/Hypothyroidism Trans. from [place] HPI Details Transfer of Care Prior PCP:?SV Last office visit/CPE: Acute issue(s): Rash Fatigue Heavy periods PMHx: Rheumatoid arthritis, obesity, hypothyroidism, Familial tremor SurgHx: FHx: SocHx: PFSH Medical History Physical exam Surgical History History of lumbar surgery Family History Father No problems noted. 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 Hearing needs: No Vision needs: No Questionnaire Thrive Questionnaire Date Thrive assessed: 08/14/22 LANDRY-7 AMB Questionnaire LANDRY-7 Date LANDRY - 7 assessed: 08/14/22 Source: Developed by Marivel HaydenW. Fidel, Valeriano Kay and colleagues, with an educational butch from [employer]. Review of Systems Skin/Breast Reports rash Physical exam (Primary Care) Vital Signs: Last Vital Signs Pulse 77 06/04/23 11:38 BP 124/64 06/04/23 11:38 Pulse Ox 97 06/04/23 11:38 Oxygen Delivery Method Room Air 06/04/23 11:38 BMI result Body Mass Index 33.9 Tobacco/Smoking Status: Tobacco use Status Tobacco use date assessed 06/04/23 06/04/23 11:45 Patient Tobacco Use Status Current everyday Tobacco 06/04/23 11:45 e-Cigarette/Vaping Use Never Used 06/04/23 11:45 Thrive Assessment: Date of Thrive Assessment Date Thrive assessed 08/14/22 06/04/23 11:45 Assessment and Plan Assessment & Plan (1) Obesity (BMI 30.0-34.9): Code(s): E66.9 - Obesity, unspecified Plan: Work?on?diet?and?exercise?as?tolerated.??Currently?has?difficulty?exercising?due?to?rheumatoid?arthritis. (2) Hypothyroidism (acquired): Code(s): E03.9 - Hypothyroidism, unspecified Plan: TSH?was?within?normal?limits?at?last?check Taking?levothyroxine?as?prescribed Due?to?recheck?thyroid?hormone?level (3) Rheumatoid arthritis: Code(s): M06.9 - Rheumatoid arthritis, unspecified Plan: Taking?Enbrel,?methotrexate?and?prednisone?as?prescribed?and?followed?by?rheumatology?at[facility] Continue?current?medications Patient?has?rash?on?legs?which?may?be?secondary?to?her?medications?and?if?treatment?below?does?not?help?she?should?follow-up?with?her?business banking manager. (4) Rash: Code(s): R21 - Rash and other nonspecific skin eruption Plan: Rash?on?legs Will?give?her?a?steroid?cream?and?I?advised?a?moisturizer?as?well. If?not?improving?check?with?business banking manager If?still?having?difficulty?will?refer?to?Rheumatology. (5) Hypersomnolence: Code(s): G47.10 - Hypersomnia, unspecified Plan: Daytime?fatigue?and?snoring. Referred?to?Sleep?Medicine (6) Familial tremor: Code(s): G25.0 - Essential tremor (7) Heavy periods: Code(s): N92.0 - Excessive and frequent menstruation with regular cycle (8) Laboratory exam ordered as part of routine general medical examination: Code(s): Z00.00 - Encounter for general adult medical examination without abnormal findings (9) Bruising: Code(s): T14.8XXA - Other injury of unspecified body region, initial encounter Orders: Orders Free T4 (Free Thyroxine) Today E03.9 - Hypothyroidism, unspecified Lipid Panel Today Z00.00 - Encounter for general adult medical examination without abnormal findings Complete Blood Count Auto Diff Today Z00.00 - Encounter for general adult medical examination without abnormal findings Partial Thromboplastin Time Today N92.0 - Excessive and frequent menstruation with regular cycle, T14.8XXA - Other injury of unspecified body region, initial encounter Thyroid Stimulating Hormone Today E03.9 - Hypothyroidism, unspecified Triiodothyronine T3 Total Today E03.9 - Hypothyroidism, unspecified Comprehensive [place]. Panel Fast Today Z00.00 - Encounter for general adult medical examination without abnormal findings Microalbumin, Random (w Creat) Today I10 - Essential (primary) hypertension Von Willebrand Factor Antigen Today N92.0 - Excessive and frequent menstruation with regular cycle, T14.8XXA - Other injury of unspecified body region, initial encounter Prothrombin Time INR Today N92.0 - Excessive and frequent menstruation with regular cycle, T14.8XXA - Other injury of unspecified body region, initial encounter Referrals Sleep Medicine Referral G47.10 - Hypersomnia, unspecified Medications: New betamethasone dipropionate 0.05% 1 appl topical BID PRN 60 grams 0RF skin irritation 14 days Coding Level of Care Code Est Pt Level 4 (78037) Diagnoses Obesity (BMI 30.0-34.9) E66.9 Hypothyroidism (acquired) E03.9 Rheumatoid arthritis M06.9 Rash R21 Hypersomnolence G47.10 Familial tremor G25.0 Heavy periods N92.0 Laboratory exam ordered as part of routine general medical examination Z00.00 Bruising T14.8XXA
== END 2023-06-04 12:33 | disposition home or self-care (01) ==
PROVIDERS: PCP Family Medicine; Visit Provider Family Medicine
DX: M06.9 Rheumatoid arthritis, unspecified (principal); E66.9 Obesity, unspecified; Z68.33 Body mass index [BMI] 33.0-33.9, adult; E03.9 Hypothyroidism, unspecified; R21 Rash and other nonspecific skin eruption; G47.10 Hypersomnia, unspecified; G25.0 Essential tremor; N92.0 Excessive and frequent menstruation with regular cycle; T14.8XXA Other injury of unspecified body region, initial encounter
CPT/HCPCS: 99214

== ENCOUNTER → 2023-09-19 12:50 | Outpatient (AMB) | payer OTHER, SELFPAY ==
[2023-09-19 13:02] VITALS: BP 108/70; PULSE 85; RESP 14; TEMP 36.6; O2SAT 99; BMI 33.3
--- NOTE | 2023-09-19 13:02 | MHC.PC.OV ---
Vital Signs 09/19/23 13:02 Height 5 ft 5 in Weight 200 lb 2 oz BMI 33.3 BP 108/70 Blood Pressure Location Rt brachial Position Sitting Respiration 14 Pulse 85 Pulse Source Pulse Oximeter Temp 97.9 F Temp Source Temporal Artery Scan Pulse Oximetry (%) 99 Oxygen Delivery Method Room Air Intake Visit Reasons: CPE with f/u labs and health maint Intake Note: Patient needs refill on Levothyroxine and Folic Acid. Vp Informatics Required: No Accompanied by: Self / Same As Patient Allergies codeine Allergy (Mild, Verified 09/19/23 13:08) Unknown Codeine Phosphate Allergy (Intermediate, Uncoded 06/04/23 11:41) Unknown Tobacco use date assessed: 09/19/23 Dental Screening Dental Screen Date: 09/19/23 Did you have a dental visit in the last 12 months?: No Did you have a dental problem in the last 6 months where you did not have access to dental care?: No Was dental information given to patient?: Patient has dentist HPI CPE with f/u labs and health maint HPI Details Patient?presents?for?CPE Has?not?gotten?her?labs?drawn?yet. Significant?GERD?but?no?other?complaints?at?this?time. She?does?not?take?anything?for?this. She?has?an?upcoming?appointment?with?GI?in?November?for?a?colonoscopy?but?she?did?not?discuss?GERD?symptoms?with?them?at?her?intake?appointment. [facility] Medical History Physical exam Surgical History History of lumbar surgery Family History Father No problems noted. 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 Hearing needs: No Vision needs: No Questionnaire PHQ-9 Over the last 2 weeks, how often have you been bothered by any of the following problems? 1. Little interest or pleasure in doing things: not at all 2. Feeling down, depressed, or hopeless: not at all 3. Trouble falling or staying asleep, or sleeping too much: not at all 4. Feeling tired or having little energy: not at all 5. Poor appetite or overeating: not at all 6. Feeling bad about yourself - or that you are a failure or have let yourself or your family down: not at all 7. Trouble concentrating on things, such as reading the newspaper or watching television: not at all 8. Moving or speaking so slowly that other people could have noticed. Or the opposite - being so fidgety or restless that you have been moving around a lot more than usual: not at all 9. Thoughts that you would be better off or of hurting yourself in some way: not at all Total score: 0 Depression Screening Interpretation: Negative Depression Screening Done: Yes 83604 - PHQ-9 Billing: Yes Source: Developed by Drs. Anoop Osorio, Marivel Parra, Valeriano Kay and colleagues, with an educational butch from [employer]. Thrive Questionnaire Date Thrive assessed: 09/19/23 I am a: Patient Within the past 12 months, did the food you bought not last and you didn't have the money to get more?: Never true Within the past 12 months, did you worry whether your food would run out before you got money to buy more?: Never true Do you have trouble paying for medicines?: No Do you have trouble getting transportation to medical appointments?: No Do you have trouble paying your heating and electricity bill?: No Do you have trouble taking care of your child, family member or friend?: No Do you have trouble with day-to-day activities such as bathing, preparing meals, shopping, managing finances, etc.?: No Are you currently unemployed and looking for a job?: No Are you interested in more education?: No Please select the resources that you would like help with: None Currently or been in a relationship where the following occur: no concerns reported THRIVE Score: 0 AUDIT C Alcohol Use Questionnaire (AUDIT-C) 1. How often do you have a drink containing alcohol?: Never 3. How often do you have six or more drinks on one occasion?: Never Total Score: 0 LANDRY-7 AMB Questionnaire LANDRY-7 Date LANDRY - 7 assessed: 09/19/23 Feeling nervous, anxious, or on edge: 0 = Not at all Not being able to stop or control worryin = Not at all Worrying too much about different things: 0 = Not at all Trouble relaxin = Not at all Being so restless that it is hard to sit still: 0 = Not at all Becoming easily annoyed or irritable: 0 = Not at all Feeling afraid as if something awful might happen: 0 = Not at all Total LANDRY-7 score (0-4 normal; 5-9 mild; 10-14 moderate; 15-21 severe): 0 Source: Developed by Drs. Anoop Osorio, Marivel Parra, Valeriano Kay and colleagues, with an educational butch from [employer]. LANDRY-7 Assessment Billing LANDRY-7 Assessment Tool: LANDRY-7 Assessment 03675 Review of Systems Const Denies chills, Denies fatigue, Denies fever(s), Denies headache(s) and Denies weakness Eyes Denies change in vision ENT Denies dizziness, Denies headache(s), Denies hearing loss, Denies nasal congestion, Denies sinus pain, Denies sinus pressure and Denies sore throat Card Denies chest pain, Denies lightheadedness, Denies dyspnea and Denies other (palpitations) Resp Denies cough, Denies dyspnea and Denies wheezing GI Denies abdominal pain, Denies melena, Denies hematochezia, Denies change in bowel habits, Denies dyspepsia and Denies nausea Denies hematuria and Denies dysuria Musc Denies abnormal gait, Denies myalgias, Denies arthralgias, Denies numbness and Denies tingling Skin/Breast Denies rash, Denies unusual bruising and Denies wounds Neuro Denies abnormal gait, Denies dizziness, Denies headache(s), Denies memory loss, Denies numbness, Denies Sensory deficit (Neuro), Denies tingling and Denies weakness Psych Denies anxiety, Denies depression and Denies memory loss Endo Denies cold intolerance, Denies fatigue, Denies heat intolerance, Denies polydipsia and Denies polyuria Cholo/Lymph Denies easy bleeding and Denies easy bruising Aller/Immun Denies wheezing Physical exam (Primary Care) Vital Signs: Last Vital Signs Temp 97.9 F 09/19/23 13:02 Pulse 85 09/19/23 13:02 Resp 14 09/19/23 13:02 BP 108/70 09/19/23 13:02 Pulse Ox 99 09/19/23 13:02 Oxygen Delivery Method Room Air 09/19/23 13:02 BMI result Body Mass Index 33.3 Tobacco/Smoking Status: Tobacco use Status Tobacco use date assessed 09/19/23 09/19/23 13:13 Patient Tobacco Use Status Current everyday Tobacco 09/19/23 13:13 e-Cigarette/Vaping Use Never Used 09/19/23 13:13 PHQ-9: PHQ-9 Score PHQ-9: Total score 0 09/19/23 13:19 Depression Screening Interpretation: Negative Thrive Assessment: Date of Thrive Assessment Date Thrive assessed 09/19/23 09/19/23 13:13 Currently or been in a relationship where the following occur: no concerns reported Const General: no acute distress, well developed, alert and awake Nutritional Appearance: well nourished Orientation/consciousness: patient oriented x3 HENMT Head: Yes normocephalic and Yes atraumatic Ears: hearing grossly normal bilaterally and TM's normal bilaterally General nose exam: Normal external nose present and Normal nares present Mouth: Normal oral and palatal mucosa present and moist mucous membranes Teeth and gingiva: dentition normal Throat: Yes posterior oropharynx normal Eyes General: appearance normal, both eyes and all related structures Pupils: Equal, round and reactive pupils present and Pupil accommodation reflex normal EOM: EOMs intact bilaterally Neck Neck: Yes normal visual inspection, Yes no lymphadenopathy and Yes trachea midline Thyroid: Thyroid normal Carotids: no bruits Lymphatic: no lymphadenopathy noted Chest Chest palpation & inspection: normal inspection of the chest Resp Effort & Inspection: normal respiratory effort Auscultation: clear to auscultation bilaterally Cardio Rate: regular rate Rhythm: regular rhythm Heart sounds: S1 normal heart sound present, S2 normal heart sound present, no gallops, no murmurs and no rubs Bruits: no abdominal aortic bruits and no carotid bruits GI Palpation (GI): No Abdominal aortic bruit present, Soft to palpation, nontender, No hepatosplenomegaly present and No Rebound tenderness present Auscultation: normal bowel sounds General: Yes no CVA tenderness Back/Spine/Pelvis Back: no CVA tenderness Cervical Spine: cervical ROM normal and No Cervical spine tenderness Thoracic/Lumbar Spine: thoraco-lumbar ROM normal, No pain with thoraco-lumbar ROM, No thoracic spinal tenderness and No lumbar spinal tenderness Skin Lesions: no lesions Rashes: no rashes Trauma: no lacerations or abrasions Wounds: no wounds Nails: normal Neuro General: patient oriented x3 Cranial nerves: Yes Equal, round and reactive pupils present Cognition (Neuro): normal cognition Gait exam (Neuro): Normal gait present Motor exam (neuro): 5/5 motor strength present throughout Sensory Exam: No Sensory deficit (Neuro) Deep tendon reflexes (DTR's): Right patellar reflex intensity grade: 2+ and Left patellar reflex intensity grade: 2+ Extrem General: Yes normal to inspection and No edema Psych Appearance: grossly normal Affect: normal affect Attitude: cooperative Thought process: Normal thought process present Assessment and Plan Assessment & Plan (1) Adult general medical exam: Code(s): Z00.00 - Encounter for general adult medical examination without abnormal findings Plan: 48-year-old?female?presents?for?complete?physical?exam Encouraged?healthy?diet?with?active?lifestyle?and?plenty?of?exercise (2) GERD (gastroesophageal reflux disease): Code(s): K21.9 - Gastro-esophageal reflux disease without esophagitis Plan: Frequent?GERD?symptoms. She?has?already?seen?gastroenterology?regarding?screening?for?colon?cancer Will?update?referral?to?include?follow-up?for?GERD. (3) Hypothyroidism (acquired): Code(s): E03.9 - Hypothyroidism, unspecified Plan: She?is?on?levothyroxine Has?not?had?her?labs?drawn?yet?but?I?encouraged?her?to?do?so?so?we?can?follow-up?on?her?thyroid?hormone?level For?now,?continue?current?medication (4) Rheumatoid arthritis: Code(s): M06.9 - Rheumatoid arthritis, unspecified Plan: Followed?by?rheumatology Methotrexate?dose?was?adjusted?but?prednisone?was?discontinued Follow-up?with?rheumatology?as?recommended (5) Hypersomnolence: Code(s): G47.10 - Hypersomnia, unspecified Plan: Had?referred?her?to?Sleep?Medicine?and?she?has?an?upcoming?appointment (6) Screening for cervical cancer: Code(s): Z12.4 - Encounter for screening for malignant neoplasm of cervix Plan: Patient?is?apprehensive?regarding?Pap?smears. She?agrees?to?a?referral?to?[facility]?OBGYN?with?a?female?provider Referred (7) Screen for colon cancer: Code(s): Z12.11 - Encounter for screening for malignant neoplasm of colon Plan: She?has?an?appointment?for?colonoscopy?scheduled. (8) Breast cancer screening by mammogram: Code(s): Z12.31 - Encounter for screening mammogram for malignant neoplasm of breast Plan: She?has?mammogram?scheduled Orders: Referrals Gastroenterology Referral K21.9 - Gastro-esophageal reflux disease without esophagitis [employer] Referral Z12.4 - Encounter for screening for malignant neoplasm of cervix Medications: Changed From folic acid 1 mg PO DAILY To folic acid 1 mg PO DAILY 90 days 90 tabs 2RF Refilled levothyroxine 137 mcg PO DAILY 30 days 30 tabs 3RF Coding Level of Care Code Est Pt Level 3 (40746) Est Pt Prev Care 40-64y(23275) Diagnoses Adult general medical exam Z00.00 GERD (gastroesophageal reflux disease) K21.9 Hypothyroidism (acquired) E03.9 Rheumatoid arthritis M06.9 Hypersomnolence G47.10 Screening for cervical cancer Z12.4 Screen for colon cancer Z12.11 Breast cancer screening by mammogram Z12.31 Additional Codes LANDRY-7 Assessment Billing - LANDRY-7 Assessment Tool: LANDRY-7 Assessment 74229 ([id number])
== END ==
PROVIDERS: PCP Family Medicine; Visit Provider Family Medicine
DX: Z00.00 Encounter for general adult medical examination without abnormal findings (principal); K21.9 Gastro-esophageal reflux disease without esophagitis; M06.9 Rheumatoid arthritis, unspecified; E03.9 Hypothyroidism, unspecified; G47.10 Hypersomnia, unspecified; Z12.11 Encounter for screening for malignant neoplasm of colon; Z12.31 Encounter for screening mammogram for malignant neoplasm of breast
CPT/HCPCS: 99396

== ENCOUNTER 2023-09-24 09:09 | Outpatient (AMB) | payer OTHER, SELFPAY ==
--- NOTE | 2023-09-24 09:15 | A.OFFVIS_ITS ---
Vital Signs 09/24/23 09:16 Height 5 ft 5 in Weight 197 lb BMI 32.8 BP 106/74 Blood Pressure Location Rt brachial Position Sitting Pulse 88 Pulse Source Pulse Oximeter Pulse Oximetry (%) 98 Oxygen Delivery Method Room Air Intake Visit Reasons: INP- Hypersomnia-CONF Intake Note: Patient presents for hypersomnia. I fall asleep easily,wake up very tired in the morning.. Allergies codeine Allergy (Mild, Verified 09/24/23 09:19) Unknown Codeine Phosphate Allergy (Intermediate, Uncoded 09/24/23 09:19) Unknown Medication List - Last Reconciled 09/24/23 by Batsheva Malave, FAMILY PROGRAM SPECIALIST betamethasone dipropionate 0.05% 1 appl topical BID PRN 14 days etanercept (Enbrel SureClick) mg subcut folic acid 1 mg PO DAILY 90 days levothyroxine 137 mcg PO DAILY 30 days levothyroxine 137 mcg PO DAILY methotrexate (PF) 25 mg subcut QWEEK peg 3350-electrolytes 236-22.74-6.74 -5.86 gram (Golytely) 240 mL PO Q10M 1 day HPI Comments Details: Right- handed 48-yr-old female presents for new in-person patient visit for sleep consultation. Pt reports she has had excessive daytime sleepiness since adolescence. She has thought this was due to having her children, not treating her hypothyroidism, and having a busy lifestyle. She has to stay active and busy to avoid falling asleep even when in meetings or talking with someone. She does use strategies to stay awake while inactive- tapping her foot, taking caffeine, playing music. More recently, her family/friends have told her she snores loudly. Sleep questionnaire: Have you ever been diagnosed with a sleep disorder? No Have you ever had a sleep study in the past? No Have you ever been treated for a sleep disorder? No Do you take medications for a sleep disorder? No Do you snore? Yes Do you wake up gasping at night? No Do you have episodes of apneas? No If yes, are they witnessed? No Do you have episodes of nocturnal chest pain or dyspnea? No Do you have difficulty initiating sleep? No Do you have difficulty maintaining sleep? No Do you wake up tired? Yes Do you have headaches upon awakening? No. May have headaches during the day. Do you wake up with dry mouth or throat? No Do you have GERD? Yes at times Do you have daytime tiredness or fatigue? Yes Do you have nocturnal leg cramps? Yes- varies- comes and goes. Do you have symptoms of restless legs? Denies- but moves a lot to stay awake. Do you act out your dreams? Others have told her she talks in her sleep. She once woke up bruised. Do you have vivid dreams? Easily prone to dreaming when she falls asleep. May think she did something that was in a dream. Do you have sleep paralysis? No Do you have sleep terrors? Has had- this makes her not want to fall back asleep. Sleep hygiene questionnaire: What is your usual sleep routine? Usual bedtime is at 9pm, but may fall asleep on the couch around 7pm (her wakes her up around 12am and she goes to her bed and able to fall back asleep); Usual wake-up time is at 4-5am. Do you take naps? No scheduled naps. If she did nap, it would be for 3-4 hrs and unrefreshing. Is your sleep environment cool, dark, and quiet? Yes Do you exercise? Is active through work. Do you take caffeine or other stimulants? 3 cups of coffee in am, 6-7 cans of Coke. Do you use electronics in bed? No. 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 Yes Have you ever had episodes of sudden weakness? No. May drop things when her hands are stiff. Have you ever had episodes of sudden weakness associated with strong emotions? Denies She also notes she has an intermittent BUE R > L rest tremor, possible chin tremor- was told familial tremor by a previous neurologist in [place]. Her father had PD and NPH, at age 73 yo d/t [employer] shunt surgical complication. [facility] Medical History Physical exam Surgical History History of lumbar surgery Family History Father No problems noted. 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 Hearing needs: No Vision needs: No Review of Systems Const All systems reviewed & are unremarkable except as noted in HPI and below Physical Exam Vital Signs: Last Vital Signs Pulse 88 09/24/23 09:16 BP 106/74 09/24/23 09:16 Pulse Ox 98 09/24/23 09:16 Oxygen Delivery Method Room Air 09/24/23 09:16 BMI result Body Mass Index 32.8 Const General: no acute distress Orientation/consciousness: patient oriented x3 HEENT Other: Mallampati stage IV Resp Effort & Inspection: able to speak in complete sentences Neuro General: patient oriented x3 Psych Mental Status: mental status grossly normal Speech and movement: Clear speech present Attitude: cooperative Telehealth Telehealth Location of provider rendering services: practice address Location of patient: address on file Patient Identification confirmed using: Name, : Yes Telehealth method: voice only Patient verbally consented to treatment: Yes Patient verbally consented to billing insurance company: Yes Patient informed of any privacy concerns related to visit: Yes Assessment & Plan Assessment & Plan (1) Hypersomnolence: Code(s): G47.10 - Hypersomnia, unspecified Category: Medical (2) Snoring: Code(s): R06.83 - Snoring Category: Medical (3) Tremor: Code(s): R25.1 - Tremor, unspecified Category: Medical Plan Pt's history and s/s are highly suspicious for narcolepsy w/o cataplexy, thus, pt is advised to undergo in-lab PGS/MSLT to assess for narcolepsy versus hypersomnia. UA drug tox screen ordered for day of MSLT. Check labs for common etiologies of hypersomnia- pt will do this weekend. Monitor tremors clinically. Pt seen in c/w Dr Rebecca Chung Orders: Orders Vitamin D 25-OH (D2 and D3) Today D64.9 - Anemia, unspecified, M06.9 - Rheumatoid arthritis, unspecified, R53.83 - Other fatigue Vitamin B12 and Folate Today D64.9 - Anemia, unspecified, M06.9 - Rheumatoid arthritis, unspecified, R53.83 - Other fatigue Homocysteine Today D64.9 - Anemia, unspecified, M06.9 - Rheumatoid arthritis, unspecified, R53.83 - Other fatigue Methylmalonic Acid Today D64.9 - Anemia, unspecified, M06.9 - Rheumatoid arthritis, unspecified, R53.83 - Other fatigue RT sleep testing - MSLT Today G47.10 - Hypersomnia, unspecified, R06.83 - Snoring Drug Screen Urine Today G47.10 - Hypersomnia, unspecified, R06.83 - Snoring Ferritin Today D64.9 - Anemia, unspecified, M06.9 - Rheumatoid arthritis, unspecified, R53.83 - Other fatigue IRON PROFILE Today D64.9 - Anemia, unspecified, M06.9 - Rheumatoid arthritis, unspecified, R53.83 - Other fatigue Coding Level of Care Code New Pt Level 4 (80059) Diagnoses Hypersomnolence G47.10 Snoring R06.83 Tremor R25.1 Hosford Sleepiness Scale Questions Sitting and reading: high chance of dozing Watching TV: high chance of dozing Sitting inactive in a theater, movie etc.: high chance of dozing As a passenger in a car for an hour without break: high chance of dozing Lying down in the afternoon when circumstances permit: high chance of dozing Sitting and talking to someone: moderate chance of dozing Sitting quietly after lunch without alcohol: high chance of dozing In a car, while stopped for a few minutes in the traffic: slight chance of dozing ESS < 10: normal, ESS > 12: pathologic: 21
[2023-09-24 09:16] VITALS: BP 106/74; PULSE 88; O2SAT 98; BMI 32.8
== END 2023-09-24 10:28 | disposition home or self-care (01) ==
PROVIDERS: PCP Family Medicine; Visit Provider Nurse Practitioner Family
DX: G47.10 Hypersomnia, unspecified (principal); R06.83 Snoring; R25.1 Tremor, unspecified
CPT/HCPCS: 99204

== ENCOUNTER → 2023-09-24 09:09 | Outpatient (BNVA) | payer OTHER, SELFPAY | PROVIDERS: PCP Family Medicine; Visit Provider Nurse Practitioner Family ==

== ENCOUNTER 2023-10-05 09:09 | Outpatient (REF) | payer OTHER, SELFPAY ==
[2023-10-05 09:49] LABS: INTERNATIONAL NORM RATIO 0.9 (0.9-1.1); Prothrombin Time 10.8 SEC (11.1-13.3)
[2023-10-05 09:52] LABS: Basophils Percent Auto 0.3 % (0-2); Eosinophils Absolute Auto 0.1 X10*3/uL (0.0-0.4); Eosinophils Percent Auto 1.9 % (0-4); Hematocrit 37.9 % (37.0-47.0); Hemoglobin 12.9 g/dl (12.0-16.0); Imm Gran Abs Auto 0.01 X10*3/uL (0.00-0.03); Imm Gran Pct Auto 0.2 % (0.0-0.4); Lymphocytes Absolute Auto 1.8 X10*3/uL (1.2-4.9); Lymphocytes Percent Auto 31.8 % (20-40); MANUAL DIFF FLAG NO; Mean Corpuscular Hemoglobin 32.1 pg (27.0-33.0); Mean Corpuscular Volume 94.3 fL (80.0-98.0); Mean Platelet Volume 9.1 fL (9.4-12.3); Monocytes Absolute Auto 0.6 X10*3/uL (0.1-1.2); Monocytes Percent Auto 9.8 % (2-11); Neutrophils Absolute Auto 3.2 x10*3/uL (2.0-8.3); Platelet Count 331 X10*3/uL (160-400); Red Blood Count 4.02 X10*6/uL (4.20-5.50); Red Cell Distribution Width 14.4 % (11.0-16.0); White Blood Count 5.7 X10*3/uL (4.8-10.8)
[2023-10-05 09:55] LABS: Partial Thromboplastin Time 29.3 SEC (26.0-36.8)
[2023-10-05 10:23] LABS: Alanine Aminotransferase 15 U/L (0-31); Albumin Level 4.3 g/dL (3.5-5.0); Alkaline Phosphatase 80 U/L (39-117); Anion Gap 10 (12-20); Aspartate Amino Transferase 18 U/L (5-31); Bilirubin Total 0.4 mg/dL (0.0-1.0); Blood Urea Nitrogen 8 mg/dL (9-16); Calcium 9.6 mg/dL (8.4-10.2); Carbon Dioxide 25 mmol/L (22-29); Chloride 108 mmol/L (96-108); Cholesterol 214 mg/dL (<200); Estimated Glomerular Filt Rate > 60; Glucose Fasting 102 mg/dL (60-99); HDL Cholesterol 34 mg/dL (>40); Iron 121 mcg/dL (30-160); LDL Cholesterol Calculated 155 mg/dL (<100); Percent Iron Saturation 40 % (15-50); Potassium 4.3 mmol/L (3.3-5.1); Sodium 139 mmol/L (135-145); Total Iron Binding Capacity 300 mcg/dL (228-428); Total Protein 7.1 g/dL (6.5-8.0); Triglycerides 127 mg/dL (<150); Unsaturated Iron Binding 179 ug/dL
[2023-10-05 10:39] LABS: Ferritin 43 ng/mL (10-250)
[2023-10-05 10:42] LABS: Free T4 (Free Thyroxine) 1.06 ng/dL (0.71-1.85); Thyroid Stimulating Hormone 1.22 uIU/mL (0.32-4.0)
[2023-10-05 10:57] LABS: Folate > 20.0 ng/mL (> or = 4.0); Vitamin B12 426 pg/mL (200-900)
[2023-10-05 11:31] LABS: Creatinine Urine 79.89 mg/dL; Microalbum/Creatinine Ratio Ur 21.2 ug/mg cr (<30)
[2023-10-05 11:33] LABS: Amphetamine Screen Urine Not Detected (Not Detect); Barbiturates, Urine Not Detected (Not Detect); Benzodiazepines Screen Urine Not Detected (Not Detect); Buprenorphine Scr Not Detected (Not Detect); Cannabinoid Screen Urine Not Detected (Not Detect); Cocaine Screen Urine Not Detected (Not Detect); Fentanyl, urine Not Detected (Not Detect); Methadone Screen, Urine Not Detected (Not Detect); Opiate Screen Urine Not Detected (Not Detect); Oxycodone Screen Urine Not Detected (Not Detect); Phencyclidine Screen Urine Not Detected (Not Detect)
[2023-10-06 06:29] LABS: Triiodothyronine T3 Total 89 ng/dL (76-181)
[2023-10-07 19:08] LABS: Homocysteine 9.7 umol/L (<10.4)
[2023-10-09 10:53] LABS: Von Willebrand Factor Antigen 197 % (50-217)
[2023-10-09 12:18] LABS: Methylmalonic Acid 81 nmol/L (87-318)
[2023-10-09 23:34] LABS: Vitamin D 25-OH, D2 <4 ng/mL; Vitamin D 25-OH, D3 12 ng/mL; Vitamin D 25-OH, Total 12 ng/mL (30-100)
== END 2023-10-05 09:10 | disposition home or self-care (01) ==
LOC: HO.LAB 09:09
PROVIDERS: Nurse Practitioner Family; PCP Family Medicine; Visit Provider Family Medicine
DX: Z00.00 Encounter for general adult medical examination without abnormal findings (principal); E03.9 Hypothyroidism, unspecified; N92.0 Excessive and frequent menstruation with regular cycle; T14.8XXA Other injury of unspecified body region, initial encounter; I10 Essential (primary) hypertension; G47.10 Hypersomnia, unspecified; R06.83 Snoring; R53.83 Other fatigue; M06.9 Rheumatoid arthritis, unspecified; D64.9 Anemia, unspecified
CPT/HCPCS: 36415; 80053; 80061; 80307; 82043; 82306; 82570; 82607; 82728; 82746; 83090; 83540; 83921; 84439; 84443; 84480; 85025; 85246; 85610; 85730

== ENCOUNTER → 2023-10-10 16:27 | Outpatient (AMB) | payer OTHER, SELFPAY ==
--- NOTE | 2023-10-10 15:00 | A.OFFPC_ITS ---
Intake Visit Reasons: CPE lab review Intake Note: Patient is scheduled to follow up on labs today. Allergies codeine Allergy (Mild, Verified 10/10/23 15:10) Unknown Codeine Phosphate Allergy (Intermediate, Uncoded 10/10/23 15:10) Unknown Tobacco use date assessed: 09/19/23 Dental Screening Dental Screen Date: 09/19/23 HPI CPE lab review HPI Details 48 y/o female presents to f/u CPE-labs v ia telemedicine. Labs were drawn 10/05/23. Reviewed labs with pt. Elevated fasting glucose of 102. TC 214. LDL 155. HDL low at 34. TSH level 1.22. She is on levothyroxine 137 mcg daily. Vitamin D low at 12. PFSH Medical History Physical exam Surgical History History of lumbar surgery Family History Father No problems noted. 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 Hearing needs: No Vision needs: No Questionnaire Thrive Questionnaire Date Thrive assessed: 09/19/23 LANDRY-7 AMB Questionnaire LANDRY-7 Date LANDRY - 7 assessed: 09/19/23 Source: Developed by Drs. Anoop Osorio, Marivel Parra, Valeriano Kay and colleagues, with an educational butch from [employer]. Review of Systems Const Denies chills, Denies fatigue, Denies fever(s), Denies headache(s) and Denies w eakness ENT Denies dizziness and Denies headache(s) Card Denies dyspnea Resp Denies cough, Denies dyspnea, Denies wheezing and Denies other (shortness of breath) Musc Denies numbness and Denies tingling Neuro Denies dizziness, Denies headache(s), Denies numbness, Denies tingling and Denies weakness Psych Denies anxiety and Denies depression Endo Denies fatigue Aller/Immun Denies wheezing Physical exam (Primary Care) Tobacco/Smoking Status: Tobacco use Status Tobacco use date assessed 09/19/23 10/10/23 15:01 Patient Tobacco Use Status Current everyday Tobacco 10/10/23 15:01 e-Cigarette/Vaping Use Never Used 10/10/23 15:01 Thrive Assessment: Date of Thrive Assessment Date Thrive assessed 09/19/23 10/10/23 15:01 Telehealth Telehealth Minutes spent on Phone/Video with Pt.: 7 Assessment and Plan Assessment & Plan (1) Hyperlipidemia: Code(s): E78.5 - Hyperlipidemia, unspecified Plan: LDL?cholesterol?is?too?high?and?her?HDL?is?low Encouraged?a?diet?low?in?saturated?fats?and?cholesterol.??Encouraged?weight?loss HDL?is?too?low?so?encouraged?exercise (2) Elevated fasting glucose: Code(s): R73.01 - Impaired fasting glucose Plan: Mildly?elevated?fasting?blood?sugar As?above?encouraged?lifestyle?changes Will?repeat?along?with?an?A1c?prior?to?next?visit (3) Hypothyroidism (acquired): Code(s): E03.9 - Hypothyroidism, unspecified Plan: Thyroid?hormone?level?is?normal Continue?levothyroxine (4) Low vitamin D level: Code(s): R79.89 - Other specified abnormal findings of blood chemistry Plan: Low?vitamin-D Sending?script?and?we?can?follow-up?on?this?at?next?visit (5) Low HDL (under 40): Code(s): E78.6 - Lipoprotein deficiency Plan: As?above,?encouraged?exercise Medications: New cholecalciferol (vitamin D3) 1,250 mcg PO QWEEK 28 days 4 caps 2RF Coding Level of Care Code Tele Est Pt Level 2 (14492) Diagnoses Hyperlipidemia E78.5 Elevated fasting glucose R73.01 Hypothyroidism (acquired) E03.9 Low vitamin D level R79.89 Low HDL (under 40) E78.6
== END ==
LOC: HO.HMGFM 16:27
PROVIDERS: PCP Family Medicine; Visit Provider Family Medicine
DX: E78.5 Hyperlipidemia, unspecified (principal); R73.01 Impaired fasting glucose; E03.9 Hypothyroidism, unspecified; R79.89 Other specified abnormal findings of blood chemistry; E78.6 Lipoprotein deficiency
CPT/HCPCS: 99212

== ENCOUNTER 2023-10-16 11:13 | Outpatient (AMB) | payer OTHER, SELFPAY ==
--- NOTE | 2023-10-16 11:15 | A.OFFVIS_ITS ---
Vital Signs 10/16/23 11:23 Height 5 ft 5 in Weight 194 lb 14.218 oz BMI 32.4 BP 94/58 L Blood Pressure Location Rt brachial Position Sitting Pulse 78 Pulse Source Pulse Oximeter Pulse Oximetry (%) 97 Oxygen Delivery Method Room Air Intake Visit Reasons: Gerd Intake Note: Linda presents in office today for a scheduled FUV. CC: Pt typically sees Dr. Marie for management of their GERD sx. Pt reports that they already have a colo s/p scheduled for January 2024. Pt is inquiring to see if we could perform an upper egd at the same time as their colo s/p. Pt reports that she recently had some lab work performed and was instructed to start taking Vitamin D2 50,000 IU. Pt is set to have repeat lab work prior to their next visit with their PCP. Proofsheet Corrector Required: No Allergies codeine Allergy (Mild, Verified 10/16/23 11:21) Unknown Codeine Phosphate Allergy (Intermediate, Uncoded 10/10/23 15:10) Unknown HPI HPI Gerd: Details: LAST VISIT: (1) Screen for colon cancer: Code(s): Z12.11 - Encounter for screening for malignant neoplasm of colon (2) Tobacco abuse: Code(s): Z72.0 - Tobacco use Plan At average risk for CRC. Offered both one step and two step screening. Pt prefers one step testing i.e colonoscopy. Procedure and instructions reviewed in detail. Split PEG prep Rxed and instructions given as a handout as well. She is aware this will be booked on an elective basis. TODAY'S VISIT Patient was seen last year by Dr. Marie and is scheduled for colonoscopy. Patient is coming here today stating that she is suffering from acid reflux and would like to see if she can go for upper endoscopy. Patient reports that she has symptoms mainly at night time. Denies dyspepsia, dysphagia or odynophagia. Patient denies any nausea or vomiting. Denies any abdominal pain or discomfort. No change since the last visit. Denies any cardiac or respiratory symptoms. [facility] Medical History Physical exam Surgical History History of lumbar surgery Family History Father No problems noted. 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 Hearing needs: No Vision needs: No Review of Systems Const Denies weight gain and Denies weight loss ENT Reports no additional complaints, Denies dysphagia and Denies odynophagia Card Reports no additional complaints Resp Reports no additional complaints GI Denies abdominal pain, Denies belching, Denies melena, Denies bloating, Denies change in bowel habits, Denies dysphagia, Denies excessive flatus, Denies dyspepsia, Reports heartburn, Denies diarrhea, Denies loose stools, Denies nausea, Denies odynophagia and Denies vomiting Reports no additional complaints Musc Reports no additional complaints Neuro Reports no additional complaints Psych Reports no additional complaints Endo Reports no additional complaints Physical Exam Vital Signs: Last Vital Signs Pulse 78 10/16/23 11:23 BP 94/58 L 10/16/23 11:23 Pulse Ox 97 10/16/23 11:23 Oxygen Delivery Method Room Air 10/16/23 11:23 BMI result Body Mass Index 32.4 Const General: healthy appearing, no acute distress and well developed Nutritional Appearance: well nourished Orientation/consciousness: patient oriented x3 Resp Effort & Inspection: normal respiratory effort, able to speak in complete sentences, no tracheal deviation and symmetric chest movement Auscultation: clear to auscultation bilaterally Cardio Jugular venous distension: no JVD Rate: regular rate Heart sounds: S1 normal heart sound present, S2 normal heart sound present, no gallops and no murmurs GI Inspection: Yes normal to inspection and No distended Palpation (GI): Soft to palpation, not firm, nontender and No hepatosplenomegaly present Auscultation: normal bowel sounds General: Yes no CVA tenderness Back/Spine/Pelvis Back: no CVA tenderness Skin General skin exam: elasticity normal, turgor normal and dry skin Neuro General: patient oriented x3 Psych Appearance: grossly normal Mental Status: mental status grossly normal Assessment & Plan Assessment & Plan (1) GERD (gastroesophageal reflux disease): Code(s): K21.9 - Gastro-esophageal reflux disease without esophagitis Category: Medical Qualifiers: Esophagitis presence: esophagitis presence not specified Qualified Code(s): K21.9 - Gastro-esophageal reflux disease without esophagitis (2) Screen for colon cancer: Code(s): Z12.11 - Encounter for screening for malignant neoplasm of colon Category: Medical Plan Proceed with colonoscopy as scheduled. Add upper endoscopy as patient is experiencing symptoms of acid reflux at this time. Diagnostic endoscopy to rule out gastritis, esophagitis, Cardona's, duodenitis, H pylori. Take famotidine at bedtime. Patient might need to be started on PPI. She will call our office if her symptoms will persist or get worse. She is agreeable to this plan and verbalizes understanding of instructions. She was given the opportunity to ask questions and all questions answered. Thank you for allowing me to participate in her care Medications: New famotidine (Pepcid) 20 mg PO BEDTIME 30 tabs 3RF K21.9 - Gastro-esophageal reflux disease without esophagitis Coding Level of Care Code Est Pt Level 3 (34786) Diagnoses Gastroesophageal reflux disease, unspecified whether esophagitis present K21.9 Esophagitis presence: esophagitis presence not specified Screen for colon cancer Z12.11 Time Spent (min) 35 Comment 25 minutes spent with patient and additional 10 minutes spent reviewing her records
[2023-10-16 11:23] VITALS: BP 94/58; PULSE 78; O2SAT 97; BMI 32.4
== END 2023-10-16 13:25 | disposition home or self-care (01) ==
PROVIDERS: PCP Family Medicine; Visit Provider Nurse Practitioner Family
DX: K21.9 Gastro-esophageal reflux disease without esophagitis (principal); Z12.11 Encounter for screening for malignant neoplasm of colon
CPT/HCPCS: 99213

== ENCOUNTER → 2023-10-16 11:13 | Outpatient (BNVA) | payer OTHER, SELFPAY | PROVIDERS: PCP Family Medicine; Visit Provider Nurse Practitioner Family ==

== ENCOUNTER 2023-10-28 11:21 | Outpatient (REF) | payer OTHER, SELFPAY ==
--- NOTE | ~2023-10-28 | MM_ITS ---
EXAMINATION: MM SCREENING DIGITAL BREAST TOMOSYNTHESIS, BILATERAL CLINICAL INFORMATION: Screening. Asymptomatic. COMPARISON: Mammography: This study is compared with prior exams dating back to 2017. TECHNIQUE: Digital breast tomosynthesis is performed in both the craniocaudal and mediolateral oblique views along with computer-aided detection (CAD). Synthesized 2D images are generated from the tomosynthesis. FINDINGS: There are scattered areas of fibroglandular density (ACR BI-RADS breast composition Category b). There are no significant masses, abnormal calcifications, or other abnormalities. There is a biopsy tissue marker in the right breast. MM/MM tomosynthesis screening BI IMPRESSION: No mammographic evidence of malignancy. ASSESSMENT: BI-RADS BI-RADS 2 - Benign Findings RECOMMENDATION: Routine annual mammography screening. 1 year F/U This examination should not preclude the clinical evaluation of a suspicious palpable abnormality. This patient's information was entered into a reminder system with a target due date for their next mammogram.
== END 2023-10-28 11:22 | disposition home or self-care (01) ==
LOC: HO.MAMMO 11:21
PROVIDERS: PCP Family Medicine; Visit Provider Family Medicine
DX: Z12.31 Encounter for screening mammogram for malignant neoplasm of breast (principal)
CPT/HCPCS: 77063; 77067

== ENCOUNTER → 2023-10-28 11:30 | Outpatient (BNV) | payer OTHER, SELFPAY | PROVIDERS: PCP Family Medicine; Visit Provider Radiology Diagnostic Radiology | DX: Z12.31 Encounter for screening mammogram for malignant neoplasm of breast (principal) | CPT/HCPCS: 77063; 77067 ==

== ENCOUNTER → 2023-12-19 19:30 | Outpatient (BNV) | payer OTHER, SELFPAY | PROVIDERS: PCP Family Medicine; Visit Provider Psychiatry & Neurology Neurology | DX: G47.33 Obstructive sleep apnea (adult) (pediatric) (principal) | CPT/HCPCS: 95810 ==

== ENCOUNTER → 2023-12-19 20:30 | Outpatient (REF) | payer OTHER, SELFPAY | LOC: HO.SL 20:30 | PROVIDERS: PCP Family Medicine; Visit Provider Nurse Practitioner Family | DX: G47.10 Hypersomnia, unspecified (principal); R06.83 Snoring | CPT/HCPCS: 95810 ==

== ENCOUNTER 2024-02-12 15:04 | Outpatient (REF) | payer OTHER, SELFPAY ==
[2024-02-13 04:01] LABS: CT PCR NOT DETECTED (Not Detect.); NG PCR NOT DETECTED (Not Detect.)
[2024-02-13 11:29] LABS: Bacterial Vaginosis PCR NEGATIVE (Negative); Candida Group PCR NOT DETECTED (Not Detect); Candida glab krusei PCR NOT DETECTED (Not Detect); Trichomonas vaginalis PCR NOT DETECTED (Not Detect)
[2024-02-17 16:48] LABS: HPV mRNA E6/E7 Detected (Not Detected)
[2024-02-20 10:39] LABS: HPV 16 RNA NOT DETECTED
== END 2024-02-12 15:05 | disposition home or self-care (01) ==
LOC: HO.LNP 15:04
PROVIDERS: PCP Family Medicine; Visit Provider Advanced Practice Midwife
DX: Z01.419 Encounter for gynecological examination (general) (routine) without abnormal findings (principal); Z11.51 Encounter for screening for human papillomavirus (HPV); R10.2 Pelvic and perineal pain
CPT/HCPCS: 0352U; 81003; 81025; 87491; 87591; 87624; 88175

== ENCOUNTER 2024-02-12 15:04 | Outpatient (AMB) | payer OTHER, SELFPAY ==
--- NOTE | 2024-02-12 15:06 | MHC.OFFVIS ---
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 Doing well with concerns: pressure discomfort in the pelvic area at nighttime, sharp pain at times, lasting and hour or so, uses Tylenol. Onset years ago, now increasing. She tries to eat healthy (one meal a day) and stays active with exercise at work. Regular monthly menses x6-7d, HMB 1-3d, last cycle heavier x 5d, lasting 9d. Labs 10/05/2023-TSH- 1.22, H/H 12.9/37.9. Taking iron tablets every other day. Currently is sexually active. Using condoms. She denies vaginal itching and irritation. UPT is negative. STI screening offered; she accepts. Denies family history of breast, ovarian or colon cancer. Last pap smear many years ago. Mammogram: 2023. [facility] Medical History (Updated 02/12/24 @ 15:43 by Raven Hermosillo CNM) Hypothyroidism (acquired) Rheumatoid arthritis GERD (gastroesophageal reflux disease) Anemia Low vitamin D level Hyperlipidemia Obstructive sleep apnea Nocturnal hypoxemia Physical exam Surgical History History of lumbar surgery Family History Father No problems noted. 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 Hearing needs: No Vision needs: No Female Reproductive History Menstrual Duration of menses: >10 days Date of last menstrual period: 02/01/24 control method: condoms Total pregnancies: 6 Full term: 5 Number of Living Children: 5 Date of last pap smear: 11/10/08 (neg) Date of Mammogram: 10/28/23 (Birad 2) Review of Systems Const All systems reviewed & are unremarkable except as noted in HPI and below Reports as per HPI Eyes Reports no additional complaints ENT Reports no additional complaints Card Reports no additional complaints Resp Reports no additional complaints GI Reports as per HPI and Reports no additional complaints Reports as per HPI Musc Reports no additional complaints Skin/Breast Reports as per HPI Neuro Reports no additional complaints Psych Reports no additional complaints Endo Reports no additional complaints Cholo/Lymph Reports no additional complaints Aller/Immun Reports no additional complaints Physical Exam Vital Signs: Last Vital Signs BP 110/70 02/12/24 15:07 BMI result Body Mass Index 33.1 Const General: cooperative, healthy appearing, no acute distress, well developed and alert Orientation/consciousness: patient oriented x3 HEENT Head: Yes normal to inspection Eyes General: appearance normal, both eyes and all related structures Neck Neck: Yes normal visual inspection Thyroid: Thyroid normal Chest Chest palpation & inspection: normal inspection of the chest and other (no puckering, dimpling, peau de orange, retraction, discharge, masses) Breast/axilla inspection: normal inspection of the breasts Breast/axilla palpation: normal palpation of the breasts Resp Effort & Inspection: normal respiratory effort GI Inspection: Yes normal to inspection Palpation (GI): Soft to palpation Rectal Exam - Female: deferred General: Yes bladder normal to palpation External Female Exam: normal external appearance and normal appearance of the urethra Speculum Exam - Vagina: normal appearance of the vagina, normal palpation and normal vaginal discharge Speculum Exam - Cervix: normal appearance of the cervix, normal palpation and Cervical mass present (enlarged cervical os splade with mass, bled w/pap ) Bimanual exam- vagina & uterus: normal bimanual exam, normal palpation, uterine size normal, bladder normal to palpation, normal palpation and non-tender Bimanual Exam- Adnexa, other: no masses Skin General skin exam: no rashes or lesions noted Rashes: no rashes Neuro General: patient oriented x3 Cognition (Neuro): normal cognition Extrem General: Yes normal to inspection Psych Attitude: cooperative Thought process: Normal thought process present Results AMB Urinalysis, Automated UA Leukoctes 0 Zuleima/uL Last Edit by Madeline Fongsera [facility] on 02/12/24 15:59 UA Nitrite Negative Last Edit by Madeline Lupe Aidee [facility] on 02/12/24 15:59 UA Urobilinogen 0 mg/dL Last Edit by Madeline Lupe Hetalsera [facility] on 02/12/24 15:59 UA Protein 0 mg/dL Last Edit by Madeline Lupe Hoskins [facility] on 02/12/24 15:59 UA pH 6.0 Last Edit by Madeline Lupe Hetalsera [facility] on 02/12/24 15:59 UA Blood 0 Roby/uL Last Edit by Madeline Lupe Hetalsera [facility] on 02/12/24 15:59 UA Specific Sterling 1.020 Last Edit by Madeline Lupe Hetalsera [facility] on 02/12/24 15:59 UA Ketone Negative Last Edit by Madeline Lupe Hoskins [facility] on 02/12/24 15:59 UA Bilirubin 0 mg/dL Last Edit by Madeline Juaresjaspal [facility] on 02/12/24 15:59 UA Glucose 0 mg/dL Last Edit by Madeline Lupe Hetalsera [facility] on 02/12/24 15:59 AMB Test Urine AMB Test Urine Negative Last Edit by Madeline Juaresjaspal [facility] on 02/12/24 15:59 Assessment & Plan Assessment & Plan (1) Encounter for well woman exam with routine gynecological exam: Code(s): Z01.419 - Encounter for gynecological examination (general) (routine) without abnormal findings Category: Medical (2) Abnormal uterine bleeding (AUB): Code(s): N93.9 - Abnormal uterine and vaginal bleeding, unspecified Category: Medical (3) Cervical mass: Code(s): N88.8 - Other specified noninflammatory disorders of cervix uteri Category: Medical Plan Discussed: Current recommendations for pap smears per ASCCP guidelines. Pap obtained today. Findings today with cervical mass-can be benign or precancer or cancerous lesion further information with workup is advised. Breast awareness and periodic breast exams. Maintain a healthy lifestyle including a well balanced diet and routine exercise. Use condoms for prevention. Mammogram yearly. Pelvic ultrasound, cervical cultures, urine dip- negative, UPT -negative. Follow up in person pending results, consider EMB await ultrasound findings for plan of care. Patient verbalizes understanding and agrees to the plan of care. She was given opportunity to ask questions and all questions were answered to the best of my ability. RTO in one year for annual barrel ribs solderer examination. This note is constructed using voice recognition software. While every effort has been made to ensure accuracy, livestock showman errors may have been included. Orders: Orders CT NG by PCR Today R10.2 - Pelvic and perineal pain Complete Blood Count no Diff Today N93.9 - Abnormal uterine and vaginal bleeding, unspecified AMB Urinalysis Automated Today R10.2 - Pelvic and perineal pain AMB HCG Urine Test Today N93.9 - Abnormal uterine and vaginal bleeding, unspecified Bacterial Vaginosis Panel Today R10.2 - Pelvic and perineal pain PAP + HPV E6/E7 rfx 18/45 Today Z01.419 - Encounter for gynecological examination (general) (routine) without abnormal findings US pelvic and transvaginal Today N88.8 - Other specified noninflammatory disorders of cervix uteri, N93.9 - Abnormal uterine and vaginal bleeding, unspecified Coding Level of Care Code New Pt Prev Care 40-64y(75273) Diagnoses Encounter for well woman exam with routine gynecological exam Z01.419 Abnormal uterine bleeding (AUB) N93.9 Cervical mass N88.8
[2024-02-12 15:07] VITALS: BP 110/70; BMI 33.1
== END 2024-02-12 15:09 | disposition home or self-care (01) ==
PROVIDERS: PCP Family Medicine; Visit Provider Advanced Practice Midwife
DX: Z01.419 Encounter for gynecological examination (general) (routine) without abnormal findings (principal); N93.9 Abnormal uterine and vaginal bleeding, unspecified; N88.8 Other specified noninflammatory disorders of cervix uteri; R10.2 Pelvic and perineal pain
CPT/HCPCS: 99386

== ENCOUNTER 2024-02-12 15:38 | Outpatient (REF) | payer OTHER, SELFPAY | END 2024-02-12 15:39 | disposition home or self-care (01) | LOC: HO.LAB 15:38 | PROVIDERS: Visit Provider Advanced Practice Midwife | DX: Z13.89 Encounter for screening for other disorder (principal) ==

== ENCOUNTER 2024-02-14 13:48 | Outpatient (AMB) | payer OTHER, SELFPAY ==
--- NOTE | 2024-02-14 14:16 | A.OFFPC_ITS ---
Vital Signs 02/14/24 14:20 Height 5 ft 5 in Weight 197 lb 2 oz BMI 32.8 BP 103/58 L Blood Pressure Location Rt brachial Position Sitting Respiration 14 Pulse 78 Pulse Source Pulse Oximeter Temp 97.5 F Temp Source Temporal Artery Scan Pulse Oximetry (%) 98 Oxygen Delivery Method Room Air Intake Visit Reasons: f/u hyperlipidemia, BS and low vitamin D level Intake Note: flutter and papalpatations in chest and when this happens she feels like theres a ball in her throat Allergies codeine Allergy (Mild, Verified 02/14/24 14:18) Unknown sulfasalazine Allergy (Unknown, Verified 02/14/24 14:18) Confusion Codeine Phosphate Allergy (Intermediate, Uncoded 10/10/23 15:10) Unknown Tobacco use date assessed: 09/19/23 Dental Screening Dental Screen Date: 09/19/23 HPI f/u hyperlipidemia, BS and low vitamin D level HPI Details 48 y/o female presents to f/u hyperlipid emia, blood sugars and low vitamin D levels. Has complaints of palpitations today. No recent labs to review. [facility] Medical History (Updated 02/14/24 @ 15:04 by Torito Earl MD) Hypothyroidism (acquired) Rheumatoid arthritis GERD (gastroesophageal reflux disease) Anemia Low vitamin D level Hyperlipidemia Obstructive sleep apnea Nocturnal hypoxemia Physical exam Surgical History History of lumbar surgery Family History Father No problems noted. 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 Hearing needs: No Vision needs: No Questionnaire Thrive Questionnaire Date Thrive assessed: 09/19/23 LANDRY-7 AMB Questionnaire LANDRY-7 Date LANDRY - 7 assessed: 09/19/23 Source: Developed by Drs. Anoop Osorio, Marivel B.W. Valeriano Parra and colleagues, with an educational butch from [employer]. Review of Systems Const Denies chills, Denies fatigue, Denies fever(s), Denies headache(s) and Denies weakness ENT Denies dizziness and Denies headache(s) Card Denies dyspnea Resp Denies cough, Denies dyspnea, Denies wheezing and Denies other (shortness of breath) Musc Denies numbness and Denies tingling Neuro Denies dizziness, Denies headache(s), Denies numbness, Denies tingling and Denies weakness Psych Denies anxiety and Denies depression Endo Denies fatigue Aller/Immun Denies wheezing Physical exam (Primary Care) Vital Signs: Last Vital Signs Temp 97.5 F 02/14/24 14:20 Pulse 78 02/14/24 14:20 Resp 14 02/14/24 14:20 BP 103/58 L 02/14/24 14:20 Pulse Ox 98 02/14/24 14:20 Oxygen Delivery Method Room Air 02/14/24 14:20 BMI result Body Mass Index 32.8 Tobacco/Smoking Status: Tobacco use Status Tobacco use date assessed 09/19/23 02/14/24 14:23 Patient Tobacco Use Status Current everyday Tobacco 02/14/24 14:23 e-Cigarette/Vaping Use Never Used 02/14/24 14:23 Thrive Assessment: Date of Thrive Assessment Date Thrive assessed 09/19/23 02/14/24 14:23 Const General: well developed; No acute distress Nutritional Appearance: well nourished Orientation/consciousness: patient oriented x3 HENMT Head: Yes normocephalic and Yes atraumatic Eyes General: appearance normal, both eyes and all related structures Pupils: Equal, round and reactive pupils present EOM: EOMs intact bilaterally Resp Effort & Inspection: normal respiratory effort Neuro General: patient oriented x3 and gait normal Cranial nerves: Yes Equal, round and reactive pupils present Psych Affect: normal affect Coding Level of Care Code Est Pt Level 4 (19462) Diagnoses Palpitations R00.2 Hyperlipidemia E78.5 Hypothyroidism (acquired) E03.9 Tobacco abuse Z72.0 Assessment & Plan Assessment & Plan (1) Palpitations: Code(s): R00.2 - Palpitations Category: Medical Plan: Patient?has?complaints?of?palpitations. She?also?says?she?gets?a?knot?in?her?throat?when?these?come?on. EKG?to day?shows?normal?sinus?rhythm?with?normal?axis,?no?hypertrophy?and?no?ST-T-wave? changes;?normal?EKG. She?had?a?Holter?monitor?test?in?2020?which?was?negative. Will?repeat?Holter?monitor?test We?can?follow-up?in?a?few?weeks. (2) Hyperlipidemia: Code(s): E78.5 - Hyperlipidemia, unspecified Category: Medical Plan: LDL?cholesterol?155?and?HDL?is?low Patient?is?also?a?smoker. Had?advised?lifestyle?changes?but?patient?says?she?is?not?terribly?intere sted?in?this. She?continues?to?decline?statin?medications We?reviewed?her?10?year?ASCVD?risk?which?is?rather?high?at?5% Encouraged?her?to?work?at?lifestyle?changes?and?quit?smoking. (3) Hypothyroidism (acquired): Code(s): E03.9 - Hypothyroidism, unspecified Category: Medical Plan: Thyroid?levels?were?within?normal?range?at?last?check.??She?is?taking?levothyrox ine?as?prescribed Palpitations?recently. Due?to?recheck?thyroid?hormone?levels?which?is?ordered (4) Tobacco abuse: Code(s): Z72.0 - Tobacco use Category: Medical Plan: As?above,?advised?weaning?and?cessation. Orders: Orders Lipid Panel Today E78.5 - Hyperlipidemia, unspecified, Z00.00 - Encounter for general adult medical examination without abnormal findings Free T4 (Free Thyroxine) Today E03.9 - Hypothyroidism, unspecified, R00.2 - Palpitations Triiodothyronine T3 Total Today E03.9 - Hypothyroidism, unspecified, R00.2 - Palpitations Thyroid Stimulating Hormone Today E03.9 - Hypothyroidism, unspecified, R00.2 - Palpitations Vitamin D 25-OH Total Today E55.9 - Vitamin D deficiency, unspecified, R79.89 - Other specified abnormal findings of blood chemistry AMB EKG-In Office Today R00.2 - Palpitations ECG holter monitor 48 hour Today R00.2 - Palpitations Comprehensive Sterling. Panel Fast Today E78.5 - Hyperlipidemia, unspecified, Z00.00 - Encounter for general adult medical examination without abnormal findings
[2024-02-14 14:20] VITALS: BP 103/58; PULSE 78; RESP 14; TEMP 36.4; O2SAT 98; BMI 32.8
== END 2024-02-14 16:30 | disposition home or self-care (01) ==
LOC: HO.HMCFM 13:48
PROVIDERS: PCP Family Medicine; Visit Provider Family Medicine
DX: R00.2 Palpitations (principal); E78.5 Hyperlipidemia, unspecified; E03.9 Hypothyroidism, unspecified; Z72.0 Tobacco use

== ENCOUNTER → 2024-02-14 13:48 | Outpatient (BNVA) | payer OTHER, SELFPAY | PROVIDERS: PCP Family Medicine; Visit Provider Family Medicine ==

== ENCOUNTER → 2024-02-18 11:29 | Outpatient (REF) | payer OTHER, SELFPAY ==
--- NOTE | 2024-02-18 11:32 | HM_ITS ---
* Total monitoring time 2 days. * Underlying rhythm is sinus with an average rate of 85/Min. * Rare supraventricular ectopy. * Rare ventricular ectopy. * No significant pauses or high-grade AV blocks. * No patient markers or diary events. MTDD
== END ==
LOC: HO.CARD 11:29
PROVIDERS: PCP Family Medicine; Visit Provider Family Medicine
DX: R00.2 Palpitations (principal)
CPT/HCPCS: 93225

== ENCOUNTER → 2024-02-18 11:32 | Outpatient (BNV) | payer OTHER, SELFPAY | PROVIDERS: PCP Family Medicine; Visit Provider Internal Medicine | DX: I47.10 Supraventricular tachycardia, unspecified (principal) | CPT/HCPCS: 93227 ==

== ENCOUNTER 2024-03-02 13:48 | Outpatient (REF) | payer OTHER, SELFPAY ==
--- NOTE | ~2024-03-02 | US_ITS ---
EXAMINATION: US PELVIS CLINICAL INFORMATION: Noninflammatory disorder of cervix/uterus. COMPARISON: CT abdomen/pelvis dated 11/02/2018. TECHNIQUE: Ultrasound of the pelvis is performed using both transabdominal and transvaginal transducers along with Doppler. Transvaginal imaging is performed due to inadequate visualization transabdominally. FINDINGS: Uterus: The uterus is retroverted and retroflexed and measures 9.4 x 6.6 x 6.4 cm. The double wall endometrial thickness is 1.8 mm. There is an ovoid, hyperechoic focus within the fundal portion of the endometrium measuring up to 0.7 x 0.8 x 0.7 cm which could represent an endometrial polyp. The uterus is smooth in contour and has normal myometrial echogenicity. No visible fibroid. Adnexa: Both ovaries are visualized. There is normal color flow to the adnexa. There is no ovarian torsion. There is no pelvic ascites or fluid collection. Multiple complex right ovarian cyst measuring up to 2.7 cm. Findings may represent hemorrhagic cysts. Right ovary measures 5.2 x 3.2 x 3.5 cm. Volume of 30.5 mL. Left ovary measures 2.8 x 2 x 2.1 cm. Volume of 6.2 mL. Trace pelvic free fluid. US/US pelvic and transvaginal IMPRESSION: 1. Hyperechoic focus within the fundal portion of the endometrium measuring up to 0.8 cm which could represent an endometrial polyp. Direct visualization could help further evaluate. 2. Multiple complex right ovarian cysts measuring up to 2.7 cm. Findings may represent hemorrhagic cysts. 3. Sonographically unremarkable left ovary. 4. Trace pelvic free fluid. Electronically signed by: Troy Suh MD 03/02/2024 05:00 PM [facility]
== END 2024-03-02 13:49 | disposition home or self-care (01) ==
LOC: HO.US 13:48
PROVIDERS: PCP Family Medicine; Visit Provider Advanced Practice Midwife
DX: N88.8 Other specified noninflammatory disorders of cervix uteri (principal); N93.9 Abnormal uterine and vaginal bleeding, unspecified
CPT/HCPCS: 76830; 76856

== ENCOUNTER 2024-03-17 08:48 | Outpatient (AMB) | payer OTHER, SELFPAY ==
--- NOTE | 2024-03-17 08:55 | A.OFFVIS_ITS ---
Vital Signs 03/17/24 08:57 Height 5 ft 5 in Weight 200 lb 6 oz BMI 33.3 BP 104/60 Blood Pressure Location Lt brachial Position Sitting Intake Visit Reasons: Room 4 , Ultra sound follow up Intake Note: After ultrasound period came immediately back and last 2 weeks. Was a tough period. Mc Kay Stitcher Required: No Electrician Powerhouse: Electrician Powerhouse Present Allergies codeine Allergy (Mild, Verified 02/14/24 14:18) Unknown sulfasalazine Allergy (Unknown, Verified 02/14/24 14:18) Confusion Codeine Phosphate Allergy (Intermediate, Uncoded 10/10/23 15:10) Unknown Is last menstrual period known: Yes Last menstrual period: 03/11/24 Post menopausal: No Patient : No HPI Comments Details: Patient is here today for ultrasound follow up, history of of heavy menstrual bleeding, in the last cycle she bled on and off every other week. She reports mid pelvic pain radiating down low intermittently, felt as a spasm, not on the right side. Has a colposcopy scheduled for March- history of ASCUS, HPV positive. [facility] Medical History (Updated 03/17/24 @ 13:03 by Raven Hermosillo CNM) Complex ovarian cyst Complex cyst of right ovary Hypothyroidism (acquired) Rheumatoid arthritis GERD (gastroesophageal reflux disease) Anemia Low vitamin D level Hyperlipidemia Obstructive sleep apnea Nocturnal hypoxemia Physical exam Surgical History History of lumbar surgery Family History Father No problems noted. 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 needs: No Hearing needs: No Vision needs: No Female Reproductive History Menstrual Age of Menarche: 11 Duration of menses: 6-7 days Date of last menstrual period: 03/11/24 control method: none and natural family planning Total pregnancies: 6 Full term: 5 Number of Living Children: 5 Ab spontaneous: 1 Date of last pap smear: 02/12/24 History of abnormal pap smear: No History of STI: No Date of Mammogram: 10/28/23 ((birad2)) History of abnormal mammogram: No Review of Systems Const All systems reviewed & are unremarkable except as noted in HPI and below Endo Reports no additional complaints Physical Exam Vital Signs: Last Vital Signs BP 104/60 03/17/24 08:57 BMI result Body Mass Index 33.3 Const General: cooperative, healthy appearing and no acute distress Psych Appearance: well kempt Attitude: cooperative Thought process: Normal thought process present Results Reviewed Results Reviewed: [address] [address] Ultrasound Report Signed Patient: Linda Wilson I MR#: [id number] : 1975 Acct:[id number] Age/Sex: 48 / F ADM Date: 03/02/24 Loc: HO.US Attending Dr: Raven Hermosillo CNM Ordering Physician: Raven Hermosillo CNM Date of Service: 03/02/24 Procedure(s): US pelvic and transvaginal Accession Number(s): [id number] cc: Torito Earl MD; Raven Hermosillo CNM~ EXAMINATION: US PELVIS CLINICAL INFORMATION: Noninflammatory disorder of cervix/uterus. COMPARISON: CT abdomen/pelvis dated 11/02/2018. TECHNIQUE: Ultrasound of the pelvis is performed using both transabdominal and transvaginal transducers along with Doppler. Transvaginal imaging is performed due to inadequate visualization transabdominally. FINDINGS: Uterus: The uterus is retroverted and retroflexed and measures 9.4 x 6.6 x 6.4 cm. The double wall endometrial thickness is 1.8 mm. There is an ovoid, hyperechoic focus within the fundal portion of the endometrium measuring up to 0.7 x 0.8 x 0.7 cm which could represent an endometrial polyp. The uterus is smooth in contour and has normal myometrial echogenicity. No visible fibroid. Adnexa: Both ovaries are visualized. There is normal color flow to the adnexa. There is no ovarian torsion. There is no pelvic ascites or fluid collection. Multiple complex right ovarian cyst measuring up to 2.7 cm. Findings may represent hemorrhagic cysts. Right ovary measures 5.2 x 3.2 x 3.5 cm. Volume of 30.5 mL. Left ovary measures 2.8 x 2 x 2.1 cm. Volume of 6.2 mL. Trace pelvic free fluid. US/US pelvic and transvaginal IMPRESSION: 1. Hyperechoic focus within the fundal portion of the endometrium measuring up to 0.8 cm which could represent an endometrial polyp. Direct visualization could help further evaluate. 2. Multiple complex right ovarian cysts measuring up to 2.7 cm. Findings may represent hemorrhagic cysts. 3. Sonographically unremarkable left ovary. 4. Trace pelvic free fluid. Electronically signed by: Troy Suh MD 03/02/2024 05:00 PM [facility] Dictated By: Troy Suh MD Signed By: <Electronically signed by Troy Suh MD in OV> 03/02/24 1700 DD/ 1404 TD/TT: 03/02/24 1423 Coding Auditor: Assessment & Plan Assessment & Plan (1) Abnormal uterine bleeding (AUB): Code(s): N93.9 - Abnormal uterine and vaginal bleeding, unspecified Category: Medical (2) Encounter to discuss test results: Code(s): Z71.2 - Person consulting for explanation of examination or test findings (3) Complex cyst of right ovary: Code(s): N83.291 - Other ovarian cyst, right side Category: Medical (4) Abnormal finding on ultrasound: Code(s): R93.89 - Abnormal findings on diagnostic imaging of other specified body structures Plan Discussed: Ultrasound findings-right complex ovarian cyst, hypoechoic area suggested of endometrial polyp-utilized plastic model and pictures to demonstrate endometrial polyp and complex ovarian cysts information. Counseled regarding findings of: Complex ovarian cyst, which is often benign, and most resolve on their own overtime. Some develop into premalignant or malignant tumors. Limitations of testing for diagnostic purposes. Further monitoring and evaluation is recommended with US, possible CT, or MRI study. If persists, or is indicated (Ca-125, Carbohydrate Antigen 19-9, & Carcinoembryonic Antigen) labs will be ordered and referral to [facility] or general gynecology for MD care if indicated for possible surgical consult. Follow up in person for test results. Will coordinate services for hysteroscopy consult. Anticipatory guidance for hysteroscopy. Abnormal Pap smear-progression of HPV ASCUS and further evaluation with colposcopy, await outcome for treatment or plan. All of her questions and concerns were addressed to the best of my ability and shared decision making. She is agreeable to the plan of care. This note is constructed using voice recognition software. While every effort has been made to ensure accuracy, space controller errors may have been included. Orders: Orders US pelvic and transvaginal 04/27/24 N83.299 - Other ovarian cyst, unspecified side Medications: Discontinued nirmatrelvir-ritonavir 300 mg (150 mg x 2)-100 mg (Paxlovid) Discontinued Reason: Order take TWO 150 mg tablets of nirmatrelvir with ONE 100 mg tablet of ritonavir twice daily for 5 days PO 30 ea 0RF Coding Level of Care Code Est Pt Level 3 (72414) Diagnoses Abnormal uterine bleeding (AUB) N93.9 Encounter to discuss test results Z71.2 Complex cyst of right ovary N83.291 Abnormal finding on ultrasound R93.89
[2024-03-17 08:57] VITALS: BP 104/60; BMI 33.3
== END 2024-03-17 09:55 | disposition home or self-care (01) ==
LOC: HO.HWS 08:48
PROVIDERS: PCP Family Medicine; Visit Provider Advanced Practice Midwife
DX: N93.9 Abnormal uterine and vaginal bleeding, unspecified (principal); Z71.2 Person consulting for explanation of examination or test findings; N83.291 Other ovarian cyst, right side; R93.89 Abnormal findings on diagnostic imaging of other specified body structures
CPT/HCPCS: 99213

== ENCOUNTER → 2024-03-17 08:48 | Outpatient (BNVA) | payer OTHER, SELFPAY | PROVIDERS: PCP Family Medicine; Visit Provider Advanced Practice Midwife ==

== ENCOUNTER → 2024-03-18 20:30 | Outpatient (REF) | payer OTHER, SELFPAY | LOC: HO.SL 20:30 | PROVIDERS: PCP Family Medicine; Visit Provider Nurse Practitioner Family | DX: G47.33 Obstructive sleep apnea (adult) (pediatric) (principal); G47.34 Idiopathic sleep related nonobstructive alveolar hypoventilation | CPT/HCPCS: 95811 ==

== ENCOUNTER 2024-04-08 15:39 | Outpatient (AMB) | payer OTHER, SELFPAY ==
--- NOTE | 2024-04-08 15:48 | A.OFFPC_ITS ---
Vital Signs 04/08/24 15:53 Height 5 ft 5 in Weight 187 lb 4 oz BMI 31.2 BP 110/60 Blood Pressure Location Rt brachial Position Sitting Respiration 14 Pulse 75 Pulse Source Pulse Oximeter Temp 98.0 F Temp Source Oral Pulse Oximetry (%) 97 Oxygen Delivery Method Room Air Intake Visit Reasons: heart palpitations more frequent Intake Note: more frequent heart palpitations with chest discomfort and dizziness Allergies codeine Allergy (Mild, Verified 02/14/24 14:18) Unknown sulfasalazine Allergy (Unknown, Verified 02/14/24 14:18) Confusion Codeine Phosphate Allergy (Intermediate, Uncoded 10/10/23 15:10) Unknown Tobacco use date assessed: 09/19/23 Dental Screening Dental Screen Date: 09/19/23 HPI heart palpitations more frequent HPI Details 48 y/o female presents to f/u palpitatio ns. Had ordered Holter monitor. Holter monitor 02/18/24 showed rare ventricular/supraventricular ectopy. [facility] Medical History (Updated 03/17/24 @ 13:03 by Raven Hermosillo CNM) Complex ovarian cyst Complex cyst of right ovary Hypothyroidism (acquired) Rheumatoid arthritis GERD (gastroesophageal reflux disease) Anemia Low vitamin D level Hyperlipidemia Obstructive sleep apnea Nocturnal hypoxemia Physical exam Surgical History History of lumbar surgery Family History Father No problems noted. 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 Hearing needs: No Vision needs: No Female Reproductive History Menstrual Age of Menarche: 11 Questionnaire PHQ-9 Over the last 2 weeks, how often have you been bothered by any of the following problems? 1. Little interest or pleasure in doing things: not at all 2. Feeling down, depressed, or hopeless: not at all 3. Trouble falling or staying asleep, or sleeping too much: not at all 4. Feeling tired or having little energy: nearly every day 5. Poor appetite or overeating: not at all 6. Feeling bad about yourself - or that you are a failure or have let yourself or your family down: not at all 7. Trouble concentrating on things, such as reading the newspaper or watching television: several days 8. Moving or speaking so slowly that other people could have noticed. Or the opposite - being so fidgety or restless that you have been moving around a lot more than usual: not at all 9. Thoughts that you would be better off or of hurting yourself in some way: not at all Total score: 4 Source: Developed by Drs. Anoop Osorio, Marivel Parra, Valeriano Kay and colleagues, with an educational butch from [employer]. Thrive Questionnaire Date Thrive assessed: 04/08/24 I am a: Patient What is your living situation today?: I have a steady place to live Within the past 12 months, did the food you bought not last and you didn't have the money to get more?: Never true Within the past 12 months, did you worry whether your food would run out before you got money to buy more?: Never true Do you have trouble paying for medicines?: No Do you have trouble getting transportation to medical appointments?: No Do you have trouble paying your heating and electricity bill?: No Do you have trouble taking care of your child, family member or friend?: No Do you have trouble with day-to-day activities such as bathing, preparing meals, shopping, managing finances, etc.?: No Are you currently unemployed and looking for a job?: No Are you interested in more education?: No Please select the resources that you would like help with: None Currently or been in a relationship where the following occur: No concerns reported THRIVE Score: 0 AUDIT C Alcohol Use Questionnaire (AUDIT-C) 1. How often do you have a drink containing alcohol?: Never Total Score: 0 LANDRY-7 AMB Questionnaire LANDRY-7 Date LANDRY - 7 assessed: 09/19/23 Feeling nervous, anxious, or on edge: 1 = Several days Not being able to stop or control worryin = More than half the days Worrying too much about different things: 2 = More than half the days Trouble relaxin = More than half the days Being so restless that it is hard to sit still: 1 = Several days Becoming easily annoyed or irritable: 1 = Several days Feeling afraid as if something awful might happen: 0 = Not at all Total LANDRY-7 score (0-4 normal; 5-9 mild; 10-14 moderate; 15-21 severe): 9 Source: Developed by Drs. Anoop Osorio, Marivel Parra, Valeriano Kay and colleagues, with an educational butch from [employer]. Review of Systems Const Denies chills, Denies fatigue, Denies fever(s), Denies headache(s) and Denies weakness ENT Denies dizziness and Denies headache(s) Card Denies dyspnea Resp Denies cough, Denies dyspnea, Denies wheezing and Denies other (shortness of breath) Musc Denies numbness and Denies tingling Neuro Denies dizziness, Denies headache(s), Denies numbness, Denies tingling and Denies weakness Psych Denies anxiety and Denies depression Endo Denies fatigue Aller/Immun Denies wheezing Physical exam (Primary Care) Vital Signs: Last Vital Signs Temp 98.0 F 04/08/24 15:53 Pulse 75 04/08/24 15:53 Resp 14 04/08/24 15:53 BP 110/60 04/08/24 15:53 Pulse Ox 97 04/08/24 15:53 Oxygen Delivery Method Room Air 04/08/24 15:53 BMI result Body Mass Index 31.2 Tobacco/Smoking Status: Tobacco use Status Tobacco use date assessed 09/19/23 04/08/24 15:49 Patient Tobacco Use Status Current everyday Tobacco 04/08/24 15:49 e-Cigarette/Vaping Use Never Used 04/08/24 15:49 PHQ-9: PHQ-9 Score PHQ-9: Total score 4 04/08/24 16:02 Thrive Assessment: Date of Thrive Assessment Date Thrive assessed 04/08/24 04/08/24 15:49 Currently or been in a relationship where the following occur: No concerns reported Const General: well developed; No acute distress Nutritional Appearance: well nourished Orientation/consciousness: patient oriented x3 HENMT Head: Yes normocephalic and Yes atraumatic Eyes General: appearance normal, both eyes and all related structures Pupils: Equal, round and reactive pupils present EOM: EOMs intact bilaterally Resp Effort & Inspection: normal respiratory effort Auscultation: clear to auscultation bilaterally Cardio Rate: regular rate Rhythm: regular rhythm Heart sounds: S1 normal heart sound present, S2 normal heart sound present, no gallops, no murmurs and no rubs Neuro General: patient oriented x3 and gait normal Cranial nerves: Yes Equal, round and reactive pupils present Psych Affect: normal affect Coding Level of Care Code Est Pt Level 3 (98882) Diagnoses Palpitations R00.2 Assessment & Plan Assessment & Plan (1) Palpitations: Code(s): R00.2 - Palpitations Category: Medical Plan: O ngoing?palpitations?and?patient?is?concerned?because?she?says?they?are?happening ?more?frequently EKG?was?unremarkable?and?Holter?monitor?showed?only?rare?ectopy I?do?hear?some?skipped?beats,?likely?PACs or PVCs. Otherwise?her?rhythm?is?quite?regular I?will?refer?her?to?Cardiology. Meantime,?she?can?try?metoprolol?12.5?mg?b.i.d.?p.r.n.?palpitations Had?also?advised?patient?get?lab?work?done?whic h?included?her?thyroid?levels.??She?has?not?done?this?yet?but?will?do?so?today. Orders: Orders Free T4 (Free Thyroxine) Today E03.9 - Hypothyroidism, unspecified, R00.2 - Palpitations Triiodothyronine T3 Total Today E03.9 - Hypothyroidism, unspecified, R00.2 - Palpitations Lipid Panel Today R00.2 - Palpitations, Z00.00 - Encounter for general adult medical examination without abnormal findings LDL Cholesterol Direct Today E78.5 - Hyperlipidemia, unspecified, R00.2 - Palpitations Vitamin D 25-OH Total Today E55.9 - Vitamin D deficiency, unspecified Comprehensive Met. Panel Today R00.2 - Palpitations Complete Blood Count Auto Diff Today R00.2 - Palpitations, Z00.00 - Encounter for general adult medical examination without abnormal findings Thyroid Stimulating Hormone Today E03.9 - Hypothyroidism, unspecified, R00.2 - Palpitations Referrals Cardiology Referral R00.2 - Palpitations Medications: New metoprolol tartrate 12.5 mg (1/2 x 25 mg) PO BID 30 days PRN 30 tabs 1RF palpitations
[2024-04-08 15:53] VITALS: BP 110/60; PULSE 75; RESP 14; TEMP 36.7; O2SAT 97; BMI 31.2
== END 2024-04-08 16:52 | disposition home or self-care (01) ==
PROVIDERS: PCP Family Medicine; Visit Provider Family Medicine
DX: R00.2 Palpitations (principal)

== ENCOUNTER 2024-04-08 15:39 | Outpatient (REF) | payer OTHER, SELFPAY ==
[2024-04-08 17:02] LABS: MANUAL DIFF FLAG NO
[2024-04-08 17:06] LABS: Basophils Percent Auto 0.3 % (0-2); Eosinophils Absolute Auto 0.3 X10*3/uL (0.0-0.4); Eosinophils Percent Auto 3.5 % (0-4); Hematocrit 35.7 % (37.0-47.0); Imm Gran Abs Auto 0.04 X10*3/uL (0.00-0.03); Imm Gran Pct Auto 0.4 % (0.0-0.4); Lymphocytes Absolute Auto 2.6 X10*3/uL (1.2-4.9); Lymphocytes Percent Auto 28.3 % (20-40); Mean Corpuscular HGB Conc 33.6 g/dl (31.0-35.0); Mean Corpuscular Hemoglobin 32.7 pg (27.0-33.0); Mean Corpuscular Volume 97.3 fL (80.0-98.0); Monocytes Absolute Auto 0.6 X10*3/uL (0.1-1.2); Monocytes Percent Auto 6.9 % (2-11); Neutrophils Absolute Auto 5.6 x10*3/uL (2.0-8.3); Neutrophils Percent Auto 60.6 % (45-73); Platelet Count 331 X10*3/uL (160-400); Red Blood Count 3.67 X10*6/uL (4.20-5.50); Red Cell Distribution Width 13.2 % (11.0-16.0); White Blood Count 9.3 X10*3/uL (4.8-10.8)
[2024-04-08 18:01] LABS: Alanine Aminotransferase 21 U/L (0-31); Albumin Level 4.2 g/dL (3.5-5.0); Alkaline Phosphatase 72 U/L (39-117); Anion Gap 11 (12-20); Aspartate Amino Transferase 18 U/L (5-31); Bilirubin Total 0.2 mg/dL (0.0-1.0); Blood Urea Nitrogen 14 mg/dL (9-16); Calcium 9.4 mg/dL (8.4-10.2); Carbon Dioxide 26 mmol/L (22-29); Chloride 109 mmol/L (96-108); Cholesterol 214 mg/dL (<200); Estimated Glomerular Filt Rate > 60; Glucose Fasting 89 mg/dL (60-99); Glucose Random 88 mg/dL (60-115); HDL Cholesterol 39 mg/dL (>40); LDL Cholesterol Calculated 116 mg/dL (<100); Potassium 3.9 mmol/L (3.3-5.1); Sodium 142 mmol/L (135-145); Total Protein 7.1 g/dL (6.5-8.0); Triglycerides 297 mg/dL (<150)
[2024-04-08 18:21] LABS: Free T4 (Free Thyroxine) 1.17 ng/dL (0.71-1.85); Thyroid Stimulating Hormone 2.91 uIU/mL (0.32-4.0); Vitamin D 25-OH Total 63.6 ng/mL (>30)
[2024-04-09 08:54] LABS: Triiodothyronine T3 Total 75 ng/dL (76-181)
[2024-04-09 15:07] LABS: LDL Cholesterol Direct 148 mg/dL (<100)
== END 2024-04-08 15:40 | disposition home or self-care (01) ==
LOC: HO.LAB 15:39
PROVIDERS: PCP Family Medicine; Visit Provider Family Medicine
CPT/HCPCS: 36415; 80053; 80061; 82306; 83721; 84439; 84443; 84480; 85025; 96127

== ENCOUNTER 2024-04-13 10:52 | Outpatient (AMB) | payer OTHER, SELFPAY ==
[2024-04-13 11:05] VITALS: BP 116/82; PULSE 76; O2SAT 97; BMI 33.8
--- NOTE | 2024-04-13 11:05 | A.OFFVIS_ITS ---
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 PMH Continues to have PAC, last week multiple, and is now on Metoprolol 12.5mg PO concerned bc she has low BP and reluctant to take it. Will f/u with her PCP next week. Thyroid is w/in normal levels, Vitamin D was 12 in September now is 63 will f/u with PCP. Pt reports she has had excessive daytime sleepiness since adolescence. She tho ught this was due to having her children, not treating her hypothyroidism, and having a busy lifestyle. She has to stay active and busy to avoid falling asleep even when in meetings or talking with someone. She does use strategies to stay awake while inactive- tapping her foot, taking caffeine, playing music. More recently, her family/friends have told her she snores loudly. Sleep Study 11/2023, The study is significant for a mild degree of sleep apnea with increased REM sleep. AHI was 11, REM AHI was 40/hr and Oxygen Rc 80%. Will schedule for titration study to determine ideal pressures. Patient is claustrophobic and interested in ENT evaluation for Inspire Therapy. BMI is 33.8. [facility] Medical History Complex ovarian cyst Complex cyst of right ovary Hypothyroidism (acquired) Rheumatoid arthritis GERD (gastroesophageal reflux disease) Anemia Low vitamin D level Hyperlipidemia Obstructive sleep apnea Nocturnal hypoxemia Physical exam Surgical History History of lumbar surgery Family History Father No problems noted. 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 Hearing needs: No Vision needs: No Female Reproductive History Menstrual Age of Menarche: 11 control method: none Review of Systems Const All systems reviewed & are unremarkable except as noted in HPI and below Physical Exam Vital Signs: Last Vital Signs Pulse 76 04/13/24 11:05 BP 116/82 04/13/24 11:05 Pulse Ox 97 04/13/24 11:05 Oxygen Delivery Method Room Air 04/13/24 11:05 BMI result Body Mass Index 33.8 Const General: no acute distress Orientation/consciousness: patient oriented x3 HEENT Other: Mallampati stage IV Resp Effort & Inspection: able to speak in complete sentences Neuro General: patient oriented x3 Psych Mental Status: mental status grossly normal Speech and movement: Clear speech present Attitude: cooperative Results Reviewed Results Reviewed: PSG Nov 2023 Study is significant for Mild degree of Sleep Apnea with increased REM sleep. REM AHI was 40/hr and Oxygen Rc is 80% Assessment & Plan Assessment & Plan (1) Hypersomnolence: Code(s): G47.10 - Hypersomnia, unspecified Category: Medical (2) Snoring: Code(s): R06.83 - Snoring Category: Medical (3) Tremor: Code(s): R25.1 - Tremor, unspecified Category: Medical Plan Sleep Apnea Scheduled Patient for CPAP titration study to determine pressures, she will use it until she gets more information for Inspire therapy. REM Behavior PLMD Patient education taking a melatonin or calming tea at night to turn off the mind, as patient continues have PLMD, and REM behavior, heavy weighted blankets for the legs and RL cream, Bengay, and tiger balm on legs prn, limit caffeine intake, drink more water daily. ENT Referral for Inspire therapy as patient is claustrophobic and anxious d/t th e idea of putting the mask on her face. Reviewed Labs, will refer her to PCP for f/u, D is high, is being followed for Cervical cancer, colposcopy pending. Orders: Orders RT PSG in-lab sleep titration Today G47.33 - Obstructive sleep apnea (adult) (pediatric) Referrals Ear/Nose/Throat Referral G47.33 - Obstructive sleep apnea (adult) (pediatric), R06.83 - Snoring Coding Level of Care Code Est Pt Level 4 (18316) Diagnoses Hypersomnolence G47.10 Snoring R06.83 Tremor R25.1 Time Spent (min) 30 Comment Worsening sleep
== END 2024-04-13 11:54 | disposition home or self-care (01) ==
PROVIDERS: PCP Family Medicine; Visit Provider Physician Assistant Medical
DX: G47.10 Hypersomnia, unspecified (principal); R06.83 Snoring; R25.1 Tremor, unspecified
CPT/HCPCS: 99214

== ENCOUNTER 2024-04-14 10:41 | Outpatient (AMB) | payer OTHER, SELFPAY ==
[2024-04-14 10:49] VITALS: BP 118/72; BMI 33.8
--- NOTE | 2024-04-14 10:49 | MHC.OFFVIS ---
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 Last co testing 02/12/2024 was ascus/HPV E6 E7 positive Pelvic ultrasound done on 03/02/2024 showed the following: Uterus: The uterus is retroverted and retroflexed and measures 9.4 x 6.6 x 6.4 cm. The double wall endometrial thickness is 1.8 mm. There is an ovoid, hyperechoic focus within the fundal portion of the endometrium measuring up to 0.7 x 0.8 x 0.7 cm which could represent an endometrial polyp. The uterus is smooth in contour and has normal myometrial echogenicity. No visible fibroid. Adnexa: Both ovaries are visualized. There is normal color flow to the adnexa. There is no ovarian torsion. There is no pelvic ascites or fluid collection. Multiple complex right ovarian cyst measuring up to 2.7 cm. Findings may represent hemorrhagic cysts. Right ovary measures 5.2 x 3.2 x 3.5 cm. Volume of 30.5 mL. Left ovary measures 2.8 x 2 x 2.1 cm. Volume of 6.2 mL. Trace pelvic free fluid. The patient was counseled about options of treatment regarding complex ovarian cyst management and elected to proceed with expectant management, she is scheduled for repeat ultrasound in 04/27/202411/19 mammogram was BI-RADS 2 [facility] Medical History Complex ovarian cyst Complex cyst of right ovary Hypothyroidism (acquired) Rheumatoid arthritis GERD (gastroesophageal reflux disease) Anemia Low vitamin D level Hyperlipidemia Obstructive sleep apnea Nocturnal hypoxemia Physical exam Surgical History History of lumbar surgery Family History Father No problems noted. 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 Hearing needs: No Vision needs: No Female Reproductive History Menstrual Age of Menarche: 11 Date of last menstrual period: 02/25/20 Total pregnancies: 2 Full term: 2 Review of Systems Card Reports as per HPI and Reports no additional complaints Resp Reports as per HPI and Reports no additional complaints GI Reports as per HPI and Reports no additional complaints Reports as per HPI Physical Exam Vital Signs: Last Vital Signs BP 118/72 04/14/24 10:49 BMI result Body Mass Index 33.8 Const General: cooperative, healthy appearing and comfortable Resp Effort & Inspection: normal respiratory effort Auscultation: clear to auscultation bilaterally Percussion: percussion normal Cardio Palpation: normal PMI Rate: regular rate Rhythm: regular rhythm Heart sounds: no murmurs and no rubs Peripheral pulses: Peripheral pulses 2+ throughout GI Inspection: Yes normal to inspection Palpation (GI): Soft to palpation, nontender, no guarding, not rigid and No hepatosplenomegaly present Percussion: Yes normal to percussion Auscultation: normal bowel sounds Rectal Exam - Female: deferred Office Procedures Colposcopy Colposcopy: Pre-Procedure Counseling: Before beginning the procedure, I conducted comprehensive counseling with the patient. We thoroughly discussed the procedure itself, including its details, alternatives, and all associated risks. This included but not limited to the following complications such as bleeding, infection, and injury to the vagina, bladder, and vessels, as well as the potential need for transfusion with all its associated risks. Subsequently, the patient sign the consent. Pap smear result: ASCUS HPV positive Urine test in office = Negative Procedure: During the procedure, the following steps were performed: A speculum was inserted, and acetic acid was applied. Colposcopy was conducted, allowing visualization of the transformation zone. Acetowhite lesions were identified at the 11+12+3 o'clock position. Cervical biopsies were obtained from the 11+12+3 o'clock position, followed by an endocervical curettage (ECC). Vaginoscopy of the upper vagina revealed no evidence of aceto-white lesions. Hemostasis was achieved using Monsel solution, and the patient tolerated the procedure well. Post-Procedure Instructions: The patient was advised to promptly contact the office or the after hours answering service or go to the emergency room if experiencing a temperature exceeding 100.4?F, abdominal pain, nausea/vomiting, or bleeding. Additionally, the patient was instructed to abstain from vaginal intercourse and bathtub use. The patient confirmed understanding of these instructions. Discharge Instructions: The patient was instructed to schedule a follow-up appointment in 2 weeks for further evaluation and management. 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 [id number] of cervix including upper vagina with biopsy and ECC Procedure code (CPT) selection complete Assessment & Plan Assessment & Plan (1) Complex ovarian cyst: Code(s): N83.299 - Other ovarian cyst, unspecified side Category: Medical Plan: The patient was counseled regarding management of complex ovarian cysts including surgical management versus expectant management, the patient decided proceed with observation, repeat follow-up pelvic ultrasound scheduled on 04/27/2024 (2) Abnormal uterine bleeding (AUB): Comment: Endometrial polyp on ultrasound Code(s): N93.9 - Abnormal uterine and vaginal bleeding, unspecified Category: Medical Plan: Discussed with the patient the finding on ultrasound showing possible endometrial polyp. The negative predictive value, positive predictive value, Sensitivity, specificity of using ultrasound measurement of endometrial stripe to detecting endometrial pathology including hyperplasia , polyp or cancer were discussed with the patient. Recommended to the patient that the next step is an endometrial sampling via hysteroscopy D&C possible polypectomy versus endometrial biopsy to r/o endometrial pathology including hyperplasia or cancer. All the pros and cons risks and benefits of each approach were discussed with the patient, endometrial biopsy being less invasive, office procedure with less sensitivity and inability diagnose a polyp and removal versus hysteroscopy done under anesthesia more invasive more sensitive to endometrial cancer and possibility of diagnosing and endometrial polyp with the possibility of polypectomy. All questions were answered pt verbalized understanding and decided to proceed with endometrial biopsy Discussed with the patient the procedure , all benefits and risks including but not limited to inability to complete the procedure , insufficient endometrial tissue for a complete evaluation of the endometrial cavity , bleeding, infection, possible need for blood transfusion with all its risk ( HIV,syphilis, Hepatitis, anaphylaxis shock, others..), injury to bladder, rectum, possible need for laparoscopy/laparotomy or hysterectomy. The patient verbalized understanding and signed the consent. Instructions given the patient to stay NPO after midnight the day prior to the procedure and to take only the specific medication (s) discussed the morning of the surgical procedure and to schedule a 2 week postoperative appointment (3) ASCUS with positive high risk HPV cervical: Code(s): R87.610 - Atypical squamous cells of undetermined significance on cytologic smear of cervix (ASC-US); R87.810 - Cervical high risk human papillomavirus (HPV) DNA test positive Category: Medical Plan: Discussed with the patient the result of her abnormal pap, its significance, risk of progression, persistence, and regression. the false positive/negative rate of a Pap smear as a screening test in detecting cervical cancer and the indication for a diagnostic test -colposcopy, biopsy, endocervical curettage. Colposcopy/biopsy/ECC done, see procedure note Instructions given the patient to schedule a follow-up appointment on 04/30/2024 prior to the scheduled hysteroscopy procedure to determine if the patient needs any additional surgical procedure specifically LEEP possible cone with post cone ECC depending on the cervical biopsy pathology results. The patient verbalized understanding and agreed with the plan, all questions answered. Orders: Orders AMB Colposcopy Today R87.610 - Atypical squamous cells of undetermined significance on cytologic smear of cervix (ASC-US), R87.810 - Cervical high risk human papillomavirus (HPV) DNA test positive Coding Level of Care Code Est Pt Level 3 (17345) Procedure Only Diagnoses Complex ovarian cyst N83.299 Abnormal uterine bleeding (AUB) N93.9 ASCUS with positive high risk HPV cervical R87.610; R87.810 CPT Codes Colposcopy - CPT: 01625-Hgedxsmlr of cervix including upper vagina with biopsy and ECC ([id number])
== END 2024-04-14 11:22 | disposition home or self-care (01) ==
PROVIDERS: PCP Family Medicine; Visit Provider Obstetrics & Gynecology
DX: N83.299 Other ovarian cyst, unspecified side (principal); N93.9 Abnormal uterine and vaginal bleeding, unspecified; R87.610 Atypical squamous cells of undetermined significance on cytologic smear of cervix (ASC-US); R87.810 Cervical high risk human papillomavirus (HPV) DNA test positive
CPT/HCPCS: 57454

== ENCOUNTER 2024-04-14 10:41 | Outpatient (REF) | payer OTHER, SELFPAY | END 2024-04-14 10:42 | disposition home or self-care (01) | LOC: HO.LNP 10:41 | PROVIDERS: PCP Family Medicine; Visit Provider Obstetrics & Gynecology | DX: R87.810 Cervical high risk human papillomavirus (HPV) DNA test positive (principal); R87.610 Atypical squamous cells of undetermined significance on cytologic smear of cervix (ASC-US) | CPT/HCPCS: 57454; 88305; 88341; 88342 ==

== ENCOUNTER 2024-04-24 14:50 | Outpatient (AMB) | payer OTHER, SELFPAY ==
--- NOTE | 2024-04-24 14:58 | MHC.OFFWIV ---
Intake Vital Signs 04/24/24 15:04 Height 5 ft 5 in Weight 90.265 kg BMI 33.1 BP 114/78 Blood Pressure Location Lt brachial Position Sitting Pulse 91 Pulse Source Pulse Oximeter Temp 98.3 F Temp Source Oral Pulse Oximetry (%) 96 Oxygen Delivery Method Room Air Intake Visit Reasons: EP SOB, Chest tightness, lump in throat Intake Note: Patient here for swollen glands, chest tightness and SOB that has been present since saturday. Patient Tobacco Use Status: Current everyday Tobacco user Allergies codeine Allergy (Mild, Verified 04/24/24 15:05) Unknown sulfasalazine Allergy (Unknown, Verified 04/24/24 15:05) Confusion Codeine Phosphate Allergy (Intermediate, Uncoded 04/24/24 15:05) Unknown Do you need a note to return to daycare/school/sports/work: No HPI HPI Comments History of Present Illness Details 48 year old female hx of hypothyroidism, RA presents w/ 4 days fatigue, malaise, myalgias, cough ( dry). Reports grandkids are sick w/ similar sx. Denies fevers, chills, n/v/d, abd pain PE mild expiratory wheezing b/l Hx and pe concerning for viral illness flu vs covid vs rsv. Unlikley PNA, PE, ACS, ARDS. Plan- viral test, albuterol, benzonate and prednisone PFSH Medical History Upper respiratory infection Complex ovarian cyst Complex cyst of right ovary Hypothyroidism (acquired) Rheumatoid arthritis GERD (gastroesophageal reflux disease) Anemia Low vitamin D level Hyperlipidemia Obstructive sleep apnea Nocturnal hypoxemia Physical exam Surgical History History of lumbar surgery Family History Father No problems noted. 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 Hearing needs: No Vision needs: No Female Reproductive History Menstrual Age of Menarche: 11 Review of Systems Const All systems reviewed & are unremarkable except as noted in HPI and below Physical Exam Vital Signs: vss Appearance: Alert.? Oriented X3.? No acute distress.? Head: Normocephalic, atraumatic, no step-offs or deformities Eyes: Pupils equal, round and reactive to light.? ENT: Pharynx normal. No mastoid tenderness. Neck: Normal inspection.? Neck supple.? CVS: Normal heart rate and rhythm.? Pulses normal.? Respiratory: No respiratory distress.? Breath sounds mild expiratory wheezing b/l.? Abdomen: Soft and nontender.? Skin: Skin warm and dry.? Normal skin color.? Normal skin turgor.? Extremities: No lower extremity edema.? No calf ttp. 5/5 strength to bilateral upper and lower extremities Back: No midline tenderness, no C-spine tenderness, full range of motion, no CVA tenderness bilaterally Neuro: Oriented X 3.? No motor deficit.? No sensory deficit. CN 2-12 intact Assessment & Plan Assessment & Plan (1) Upper respiratory infection: Code(s): J06.9 - Acute upper respiratory infection, unspecified Plan Take your medications as prescribed. If you were prescribed antibiotics today, it is important that you take your medication to their entirety, do not skip any doses, do not finish them early. Follow-up with your primary care provider this week. Return to the emergency department with new or worsening symptoms. In case of emergency call 911 Orders: Orders SARS-CoV2/FLU/RSV Today R09.89 - Other specified symptoms and signs involving the circulatory and respiratory systems Medications: New benzonatate 100 mg PO BID PRN 14 caps 0RF cough prednisone 40 mg (2 x 20 mg) PO DAILY 5 days 10 tabs 0RF albuterol sulfate 90 mcg/actuation 2 puffs inhalation Q6H PRN 6.7 grams 0RF shortness of breath or wheezing Coding Level of Care Code Est Pt Level 3 (40396) Diagnoses Upper respiratory infection J06.9
[2024-04-24 15:04] VITALS: BP 114/78; PULSE 91; TEMP 36.8; O2SAT 96; BMI 33.1
== END 2024-04-24 15:42 | disposition home or self-care (01) ==
PROVIDERS: PCP Family Medicine; Visit Provider Physician Assistant
DX: J06.9 Acute upper respiratory infection, unspecified (principal)

== ENCOUNTER 2024-04-24 14:50 | Outpatient (REF) | payer OTHER, SELFPAY ==
[2024-04-24 17:41] LABS: Influenza A PCR NEGATIVE (Negative); Influenza B PCR NEGATIVE (Negative); Resp Syncy Virus RNA Qual PCR NEGATIVE (Negative); SARS COV2 PCR INHOUSE NEGATIVE (Negative)
== END 2024-04-24 14:51 | disposition home or self-care (01) ==
LOC: HO.LNP 14:50
PROVIDERS: PCP Family Medicine; Visit Provider Physician Assistant
DX: J06.9 Acute upper respiratory infection, unspecified (principal); R09.89 Other specified symptoms and signs involving the circulatory and respiratory systems
CPT/HCPCS: 0241U

== ENCOUNTER 2024-04-27 10:47 | Outpatient (REF) | payer OTHER, SELFPAY | END 2024-04-27 10:48 | disposition home or self-care (01) | LOC: HO.US 10:47 | PROVIDERS: PCP Family Medicine; Visit Provider Advanced Practice Midwife | DX: Z13.89 Encounter for screening for other disorder (principal) ==

== ENCOUNTER 2024-04-27 15:29 | Outpatient (AMB) | payer OTHER, SELFPAY ==
--- NOTE | 2024-04-27 15:34 | A.OFFPC_ITS ---
Vital Signs 04/27/24 15:42 Height 5 ft 5 in Weight 201 lb 8 oz BMI 33.5 BP 110/70 Blood Pressure Location Rt brachial Position Sitting Respiration 16 Pulse 72 Pulse Source Palpation Intake Visit Reasons: f/u palpitations, labs Intake Note: f/u labs and palpatations Allergies codeine Allergy (Mild, Verified 04/27/24 15:41) Unknown sulfasalazine Allergy (Unknown, Verified 04/27/24 15:41) Confusion Codeine Phosphate Allergy (Intermediate, Uncoded 04/24/24 15:05) Unknown Tobacco use date assessed: 09/19/23 Dental Screening Dental Screen Date: 09/19/23 HPI f/u palpitations, labs HPI Details 48 y/o female presents to f/u palpitatio ns, labs. Recent hospital visit for an upper respiratory infection. Reports ongoing palpitations. [facility] Medical History Upper respiratory infection Complex ovarian cyst Complex cyst of right ovary Hypothyroidism (acquired) Rheumatoid arthritis GERD (gastroesophageal reflux disease) Anemia Low vitamin D level Hyperlipidemia Obstructive sleep apnea Nocturnal hypoxemia Physical exam Surgical History History of lumbar surgery Family History Father No problems noted. 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 Hearing needs: No Vision needs: No Female Reproductive History Menstrual Age of Menarche: 11 Questionnaire Thrive Questionnaire Date Thrive assessed: 04/08/24 I am a: Patient What is your living situation today?: I have a steady place to live Within the past 12 months, did the food you bought not last and you didn't have the money to get more?: Never true Within the past 12 months, did you worry whether your food would run out before you got money to buy more?: Never true Do you have trouble paying for medicines?: No Do you have trouble getting transportation to medical appointments?: No Do you have trouble paying your heating and electricity bill?: No Do you have trouble taking care of your child, family member or friend?: No Do you have trouble with day-to-day activities such as bathing, preparing meals, shopping, managing finances, etc.?: No Are you currently unemployed and looking for a job?: No Are you interested in more education?: No Please select the resources that you would like help with: None Currently or been in a relationship where the following occur: No concerns reported THRIVE Score: 0 LANDRY-7 AMB Questionnaire LANDRY-7 Date LANDRY - 7 assessed: 09/19/23 Source: Developed by Drs. Anoop Osorio, Marivel Parra, Valeriano Kay and colleagues, with an educational butch from [employer]. Review of Systems Const Denies chills, Denies fatigue, Denies fever(s), Denies headache(s) and Denies weakness ENT Denies dizziness and Denies headache(s) Card Denies chest pain, Denies lightheadedness, Denies dyspnea and Denies other (Palpitations) Resp Denies cough, Denies dyspnea, Denies wheezing and Denies other ( shortness of breath) Musc Denies numbness and Denies tingling Neuro Denies dizziness, Denies headache(s), Denies numbness, Denies tingling, Denies paresthesias and Denies weakness Psych Denies anxiety and Denies depression Endo Denies fatigue Aller/Immun Denies wheezing Physical exam (Primary Care) Vital Signs: Last Vital Signs Pulse 72 04/27/24 15:42 Resp 16 04/27/24 15:42 BP 110/70 04/27/24 15:42 BMI result Body Mass Index 33.5 Tobacco/Smoking Status: Tobacco use Status Tobacco use date assessed 09/19/23 04/27/24 15:35 Patient Tobacco Use Status Current everyday Tobacco 04/27/24 15:35 e-Cigarette/Vaping Use Never Used 04/27/24 15:35 Thrive Assessment: Date of Thrive Assessment Date Thrive assessed 04/08/24 04/27/24 15:35 Currently or been in a relationship where the following occur: No concerns reported Const General: no acute distress and well developed Nutritional Appearance: well nourished Orientation/consciousness: patient oriented x3 [facility] Head: Yes normocephalic and Yes atraumatic Eyes General: appearance normal, both eyes and all related structures Pupils: Equal, round and reactive pupils present EOM: EOMs intact bilaterally Resp Effort & Inspection: normal respiratory effort Auscultation: clear to auscultation bilaterally Cardio Rate: regular rate Rhythm: regular rhythm Heart sounds: S1 normal heart sound present, S2 normal heart sound present, no gallops, no murmurs and no rubs Neuro General: patient oriented x3 and gait normal Cranial nerves: Yes Equal, round and reactive pupils present Psych Affect: normal affect Coding Level of Care Code Est Pt Level 4 (78805) Diagnoses Palpitations R00.2 Upper respiratory infection J06.9 Borderline anemia D64.9 Hypothyroidism (acquired) E03.9 Assessment & Plan Assessment & Plan (1) Palpitations: Code(s): R00.2 - Palpitations Category: Medical Plan: Ongoing?palpitations. She?has?a?referral?to?Cardiology. EKG?and?Holter?have?been?unremarkable Lab?work?does?not?show?any?significant?reason?for?chronic?palpitations?though?he r?total?T3?was?1?point?below?the?normal?limits?on?levothyroxine?137?mcg?daily. Vitamin-D?level?is in?the?60s?and?we?can?ease?up?on?cholecalciferol Her?H&H?shows?a?very?mild/borderline?anemia?and?I?do?not?think?this?is?responsib le?for?her?symptoms?either. She?will?call?Cardiology?for?an?appointment (2) Upper respiratory infection: Code(s): J06.9 - Acute upper respiratory infection, unspecified Category: Medical Plan: Ongoing?cough?and?recent?upper?respiratory?infection?for?which?she?was?seen?at?t he?emergency?department Will?give?her?a?script?for?a?Z- Alex.??She?will?not?fill?this?unless?she?is?not?improving?in?the?next?couple?of?d ays (3) Borderline anemia: Code(s): D64.9 - Anemia, unspecified Category: Medical Plan: As?above (4) Hypothyroidism (acquired): Code(s): E03.9 - Hypothyroidism, unspecified Category: Medical Plan: As?above Repeat?thyroid?hormone?levels Orders: Orders Free T4 (Free Thyroxine) Today E03.9 - Hypothyroidism, unspecified Thyroid Stimulating Hormone Today E03.9 - Hypothyroidism, unspecified Triiodothyronine T3 Total Today E03.9 - Hypothyroidism, unspecified Basic Metabolic Panel Today E03.9 - Hypothyroidism, unspecified, Z00.00 - Encounter for general adult medical examination without abnormal findings Medications: New azithromycin (Zithromax Z-Alex) take 500 mg today (day 1), then 250 mg for 4 days (days 2-5) PO 5 days 6 tabs 0RF Changed From cholecalciferol (vitamin D3) 1,250 mcg PO QWEEK 28 days 4 caps 2RF To cholecalciferol (vitamin D3) 1,250 mcg (25 x 50 mcg (2,000 unit)) PO DAILY 30 days 30 caps 3RF
[2024-04-27 15:42] VITALS: BP 110/70; PULSE 72; RESP 16; BMI 33.5
== END 2024-04-27 16:44 | disposition home or self-care (01) ==
PROVIDERS: PCP Family Medicine; Visit Provider Family Medicine
DX: R00.2 Palpitations (principal); J06.9 Acute upper respiratory infection, unspecified; D64.9 Anemia, unspecified; E03.9 Hypothyroidism, unspecified

== ENCOUNTER 2024-04-30 09:40 | Outpatient (AMB) | payer OTHER, SELFPAY ==
--- NOTE | 2024-04-30 09:45 | A.OFFVIS_ITS ---
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 The patient is doing well with no complaints. The pathology showed the following: A. Endocervix, curettage: Inflamed cervical transformation zone mucosa with reactive changes. B. Cervix, 3 o'clock, biopsy: Inflamed cervical transformation zone mucosa with reactive changes. C. Cervix, 11 o'clock, biopsy: Inflamed cervical transformation zone mucosa with reactive changes. D. Cervix, 12 o'clock, biopsy: - High-grade squamous intraepithelial lesion (LETY 2). - Few strips of endocervical epithelium within normal limits. COMMENT: The findings are concordant with the patient's recent Pap/cytology specimen ([facility] [id number]) - slide reviewed The patient is scheduled for hysteroscopy D&C possible polypectomy for AUB with possible endometrial polyp on pelvic ultrasound [facility] Medical History Upper respiratory infection Complex ovarian cyst Complex cyst of right ovary Hypothyroidism (acquired) Rheumatoid arthritis GERD (gastroesophageal reflux disease) Anemia Low vitamin D level Hyperlipidemia Obstructive sleep apnea Nocturnal hypoxemia Physical exam Surgical History History of lumbar surgery Family History Father No problems noted. 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 Hearing needs: No Vision needs: No Female Reproductive History Menstrual Age of Menarche: 11 Date of last menstrual period: 02/25/20 Total pregnancies: 2 Full term: 2 Review of Systems Card Reports as per HPI and Reports no additional complaints Resp Reports as per HPI and Reports no additional complaints GI Reports as per HPI and Reports no additional complaints Reports as per HPI Physical Exam Const General: cooperative, healthy appearing and comfortable Resp Effort & Inspection: normal respiratory effort Auscultation: clear to auscultation bilaterally Percussion: percussion normal Cardio Palpation: normal PMI Rate: regular rate Rhythm: regular rhythm Heart sounds: no murmurs and no rubs Peripheral pulses: Peripheral pulses 2+ throughout GI Inspection: Yes normal to inspection Palpation (GI): Soft to palpation, nontender, no guarding, not rigid and No hepatosplenomegaly present Percussion: Yes normal to percussion Auscultation: normal bowel sounds Rectal Exam - Female: deferred Assessment & Plan Assessment & Plan (1) LETY II (cervical intraepithelial neoplasia II): Code(s): N87.1 - Moderate cervical dysplasia Category: Medical Plan: Discussed with the patient the pathology results of the colposcopy biopsies & endocervical curettage ( moderate dysplasia-LETY 2). Discussed with the patient the sensitivity specificity, positive and negative predictive value in detecting cervical cancer in addition discussed the regression, persistence and progression rates. Addition discussed with the patient the risk of progression to cancer and impact of excision procedure on her future . Per ASCCP guidelines, 2 options of management were discussed with the patient including either observation with HPV based screening and colposcopy biopsy at 6 months and 12 months versus a diagnostic excisional procedures, which is the preferred method of management. The patient is concerned more about the progression of LETY 2 to cancer than the excisional procedure impact on her future and she decided to proceed with a LEEP, possible cone with post cone ECC. Discussed with the patient the procedure, its benefits and risks including bleeding, infection, possible need for blood transfusion with all its risk ( HIV, syphilis, Hepatitis, anaphylaxis shock, others..), injury to bladder, rectum, possible re-excision for positive margins, potential need for hysterectomy, possible future negative impact on fertility including ( cervical stenosis, incompetence , increase risk for c section 2ndary to cervical scarring and failure of dilatation), possible positive margin necessitating re-excision. Also discussed the patient options of anesthesia either paracervical block versus IV sedation/MAC, prefers to proceed with IV sedation/MAC. All questions answered, the patient verbalized understanding and signed the consent. (2) Abnormal uterine bleeding (AUB): Comment: Endometrial polyp on ultrasound Code(s): N93.9 - Abnormal uterine and vaginal bleeding, unspecified Category: Medical Plan: Will proceed with schedule hysteroscopy D&C possible polypectomy/myomectomy as previously counseled, consent signed during last visit Coding Level of Care Code Est Pt Level 3 (17784) Diagnoses LETY II (cervical intraepithelial neoplasia II) N87.1 Abnormal uterine bleeding (AUB) N93.9
== END 2024-04-30 10:28 | disposition home or self-care (01) ==
PROVIDERS: PCP Family Medicine; Visit Provider Obstetrics & Gynecology
DX: N87.1 Moderate cervical dysplasia (principal); N93.9 Abnormal uterine and vaginal bleeding, unspecified
CPT/HCPCS: 99213

== ENCOUNTER 2024-04-30 16:17 | Outpatient (REF) | payer OTHER, SELFPAY ==
--- NOTE | ~2024-04-30 | US_ITS ---
CLINICAL HISTORY: N83.299 - Other ovarian cyst, unspecified side US pelvis transabdominal and transvaginal Comparison: US/SR - US PELVIC AND TRANSVAGINAL - 03/02/24 14:03 EST Findings: Transabdominal scanning performed for overall anatomy. Transvaginal scanning performed for additional detail. Anteverted uterus is 9.7 cm length. Normal myometrium. Endometrium 12 mm thickness. Right ovary 3.3 x 2.0 x 3.0 cm. There is a 2.2 x 1.7 x 1.6 cm involuting physiologic cyst within the right ovary. There is an additional 7 x 7 x 7 mm complex cyst within the right ovary, compatible with a hemorrhagic physiologic cyst. There is no suspicious ovarian mass. Left ovary 3.2 x 1.9 x 1.9 cm. Normal color Doppler of both ovaries. No free fluid. IMPRESSION: 1. Small physiologic cysts within the right ovary. Otherwise unremarkable examination 2. Unremarkable appearance of the endometrium on the current study. The previously seen echogenic nodule is no longer identified. This document has been electronically signed by: Emilia Gary MD on 05/05/2024 16:47:12
== END 2024-04-30 16:18 | disposition home or self-care (01) ==
LOC: HO.US 16:17
PROVIDERS: PCP Family Medicine; Visit Provider Advanced Practice Midwife
DX: N83.299 Other ovarian cyst, unspecified side (principal)
CPT/HCPCS: 76830; 76856

== ENCOUNTER → 2024-04-30 16:18 | Outpatient (BNV) | payer OTHER, SELFPAY | PROVIDERS: PCP Family Medicine; Visit Provider Radiology Diagnostic Radiology | DX: N83.201 Unspecified ovarian cyst, right side (principal) | CPT/HCPCS: 76830; 76856 ==

== ENCOUNTER 2024-05-01 10:24 | Day surgery (SDC) | payer OTHER, SELFPAY ==
--- NOTE | 2024-04-28 14:31 | P.CONAN_ITS ---
Documented by User: Danae Villavicencio NP 04/28/24 14:34 HPI - Anesthesia Eval Consult details Narrative: 48yo F for D&C Hysteroscopy,possible myomectomy,possible polypectomy Methotrexate weekly for RA PMFSH Active Problems Active Problems: All Active Problems Borderline anemia (Acute) Upper respiratory infection (Acute) ASCUS with positive high risk HPV cervical (Acute) Complex ovarian cyst (Acute) Complex cyst of right ovary (Acute) Palpitations (Acute) Abnormal uterine bleeding (AUB) (Acute) Cervical mass (Acute) Encounter for well woman exam with routine gynecological exam (Acute) Nocturnal hypoxemia (Acute) Obstructive sleep apnea (Acute) Hyperlipidemia (Acute) Low HDL (under 40) (Acute) Low vitamin D level (Acute) Elevated fasting glucose (Acute) Anemia (Acute) Tremor (Acute) Snoring (Acute) Breast cancer screening by mammogram (Acute) Screening for cervical cancer (Acute) Adult general medical exam (Acute) GERD (gastroesophageal reflux disease) (Acute) Heavy periods (Acute) Hypersomnolence (Acute) Fatigue (Acute) Familial tremor (Acute) Rash (Acute) Laboratory exam ordered as part of routine general medical examination (Acute) Screen for colon cancer (Acute) Obesity (BMI 30.0-34.9) (Acute) Rheumatoid arthritis (Acute) Normal physical exam (Acute) Tobacco abuse (Acute) TRINH (dyspnea on exertion) (Acute) Physical exam (Acute) Tachycardia, unspecified (Acute) Hypothyroidism (acquired) (Acute) Past Medical History Medical History Upper respiratory infection Complex ovarian cyst Complex cyst of right ovary Hypothyroidism (acquired) Rheumatoid arthritis GERD (gastroesophageal reflux disease) Anemia Low vitamin D level Hyperlipidemia Obstructive sleep apnea Nocturnal hypoxemia Physical exam Family History Family History Father No problems noted. Mother CVD (cardiovascular disease) Hypertension Chronic mental illness Surgical History Surgical History History of lumbar surgery Social History Social History Household Members: Significant Other and Children Housing: Apartment Are you a primary healthcare consultant to a significant other at home: No Do you presently have visiting nurse or other home services: No Alcohol intake: never Patient Tobacco Use Status: Current everyday Tobacco user Cigarette Packs Per Day: 1 Cigarettes Per Day: 20.0 e-Cigarette/Vaping Use: Never Used Patient Interested in Nicotine Replacement: No Patient Given Instructions on How to Stop Smoking: No Second Hand Smoke Exposure: No Use of substances other than those prescribed or required for medical reasons: No Have you been hit, kicked, punched, or otherwise hurt by someone within the past year? 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 Hearing needs: No Vision needs: No Meds Allergies Allergy/AdvReac Type Severity Reaction Status Date / Time codeine Allergy Mild Unknown Verified 04/30/24 09:46 sulfasalazine Allergy Unknown Confusion Verified 04/30/24 09:46 Codeine Phosphate Allergy Intermediate Unknown Uncoded 04/24/24 15:05 Home Medications ?Medication ?Instructions ?Recorded ?Confirmed ?Last Taken ?Type celecoxib 200 mg capsule (Celebrex) 200 mg PO BID 02/12/24 Unknown History methotrexate sodium 5 mg tablet 25 mg PO QWEEK 02/12/24 Unknown History tofacitinib 11 mg tablet,extended 11 mg PO DAILY 02/12/24 Unknown History release 24 hr (Xeljanz XR) Exam Pertinent Lab Results Pertinent Lab Results: Laboratory Tests 04/08/24 17:01 WBC 9.3 Hgb 12.0 Hct 35.7 L Plt Count 331 Sodium 142 Potassium 3.9 Chloride 109 H Carbon Dioxide 26 BUN 14 Creatinine 0.89 Narrative Narrative: Holter 01/2024 * Total monitoring time 2 days. * Underlying rhythm is sinus with an average rate of 85/Min. * Rare supraventricular ectopy. * Rare ventricular ectopy. * No significant pauses or high-grade AV blocks. * No patient markers or diary events. EKG 03/2024 NSR @ 66 Assessment and Plan Assessment Anesthesia Assessment: Chart Reviewed Documented by User: Yvon Motta MD 05/01/24 12:33 PMF Past Medical History Medical History Upper respiratory infection Complex ovarian cyst Complex cyst of right ovary Hypothyroidism (acquired) Rheumatoid arthritis GERD (gastroesophageal reflux disease) Anemia Low vitamin D level Hyperlipidemia Obstructive sleep apnea Nocturnal hypoxemia Physical exam Functional capacity: uses cane/walker Patient : No Family History Family History Father No problems noted. Mother CVD (cardiovascular disease) Hypertension Chronic mental illness Family history of problems with anesthesia: No Surgical History Surgical History History of lumbar surgery History of Problems with Anesthesia: No Social History Social History Household Members: Significant Other and Children Housing: Apartment Are you a primary healthcare consultant to a significant other at home: No Do you presently have visiting nurse or other home services: No Alcohol intake: never Patient Tobacco Use Status: Current everyday Tobacco user Cigarette Packs Per Day: 1 Cigarettes Per Day: 20.0 e-Cigarette/Vaping Use: Never Used Patient Interested in Nicotine Replacement: No Patient Given Instructions on How to Stop Smoking: No Second Hand Smoke Exposure: No Use of substances other than those prescribed or required for medical reasons: No Have you been hit, kicked, punched, or otherwise hurt by someone within the past year? 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 Hearing needs: No Vision needs: No Meds Allergies Allergy/AdvReac Type Severity Reaction Status Date / Time codeine Allergy Mild Unknown Verified 04/30/24 09:46 sulfasalazine Allergy Unknown Confusion Verified 04/30/24 09:46 Codeine Phosphate Allergy Intermediate Unknown Uncoded 04/24/24 15:05 Home Medications ?Medication ?Instructions ?Recorded ?Confirmed ?Last Taken ?Type celecoxib 200 mg capsule (Celebrex) 200 mg PO BID 02/12/24 Unknown History methotrexate sodium 5 mg tablet 25 mg PO QWEEK 02/12/24 Unknown History tofacitinib 11 mg tablet,extended 11 mg PO DAILY 02/12/24 Unknown History release 24 hr (Xeljanz XR) Exam Airway Mallampati Class: II TM Dist: <=3cm Neck ROM: Full Loose/Missing/Broken Teeth: Yes and Upper (multiple missing and broken) Heart: ok Lungs: clear. Assessment and Plan Assessment Anesthesia Assessment: Anesthesia Plan Discussed Final Anesthetic Review Family History of Problems with Anesthesia: No History of Problems with Anesthesia: No NPO: Yes ASA Class: III Final Preanesthetic Review: No Changes in Pt Med Stat, Meds/Allgs Chart Reviewed, Consent Obtained/Reviewed and Anes Risks/Benef Reviewed Patient Risk: Intermediate Procedure Risk: Low Anesthetic Plan Anesthetic Plan: GA and Agree w/ Assess. and Plan Disposition: Standard PACU
[2024-05-01 10:40] VITALS: BMI 33.6
--- NOTE | 2024-05-01 10:57 | MHC.SHP ---
Pre-Procedural Eval Section A - 24 Hr Update-Section A only Date of Service: 05/01/24 The patient is an INPATIENT: No Changes since office visit: No Cold of Flu in the past 2 weeks, No New Medical Problems, No Changes in Medication and No Patient answered all questions The patient has been examined within 24 hours of the surgical procedure. The History & Physical has been completed within 30 days and I have reviewed it.: Yes Section B - Complete if H&P > 30 days Chief Complaint: Abnormal uterine and vaginal bleeding, unspecified Allergies: Allergies Allergy/AdvReac Type Severity Reaction Status Date / Time codeine Allergy Mild Unknown Verified 04/30/24 09:46 sulfasalazine Allergy Unknown Confusion Verified 04/30/24 09:46 Codeine Phosphate Allergy Intermediate Unknown Uncoded 04/24/24 15:05 Plan Diagnosis/Plan: Unchanged I have reviewed the history and physical and performed a pertinent physical examination on my patient. No changes have occurred unless specified. Time Spent With Patient Time: Total time managing care of this patient today ____ minutes.
[2024-05-01 11:07] LABS: UPreg QC Valid YES; Urine Pregnancy NEGATIVE (NEGATIVE)
--- NOTE | 2024-05-01 13:09 | P.BOP_ITS ---
Brief Operative Note Date of Service: 04/08/20 Pre-op diagnosis: Abnormal uterine bleeding LETY 2 Post-op diagnosis: same (Normal endometrial cavity) Procedure: Hysteroscopy, D&C, LEEP CONE with post CONE ECC Surgeon: Rc Vo MD Anesthesia: GLMA and other (Paracervical block) Was an [employer] used for this Procedure?: No Estimated blood loss (mL): 0 Pathology: other (Anterior cervical lip, posterior cervical lip, endocervix, Post cone ECC, endometrial scraping) Condition: stable Disposition: other (Home)
--- NOTE | 2024-05-01 13:10 | P.OP_ITS ---
Operative Note Operative Note Date of Service: 05/01/24 Narrative: Preop Diagnosis: Abnormal uterine bleeding, Endometrial polyp by US, LETY 2 Operation: Diagnostic Hysteroscopy, Dilatation & Curettage and polypectomy, LEEP cone with post cone ECC Post Op Diagnosis: Normal endometrial cavity QBL: Minimal Anesthesia: GLMA Surgeon: Rc Vo MD Antique Clocks Repairer: None Complication: None Pathology: Endometrial Scrapings, Endometrial polyp, anterior cervical lip, posterior cervical lip, endocervix, post cone ECC Procedure: The patient was put in the dorsal lithotomy position, scrubbed, and draped in the usual manner. A sterile speculum was inserted in the patient's vagina. The cervix is assessed using the colposcope with acetic acid , the lesions were seen, and at least 1 cm of the squamocolumnar junction was observed. 20 x 5 mm size loop was selected based upon the diameter of the lesion. Lugol solution was used to outline the lesions and area of the transformation zone order to be removed 10 cc of xylocaine with epinephrine were injected submucosally into the surface of the cervix (ectocervix) at the 3, 6, 9, and 12 o'clock positions. The electrosurgical generator is set at 40 cabrera on blend 1. The loop is carefully passed simultaneously around and under the transformation zone, of the anterior cervical lip follow-up of the posterior cervical lip in order to ensure excising it making sure the lesion is at least 5 mm far from the specimen margins . The loop was allowed to glide through the cervix from one side to the other, allowing the cutting current to divide the tissue. Next, endo cervical disease could be beyond the reach of the loop, additional tissue was excised from this area with a smaller-diameter loop , endo cervical excision was performed An endo cervical curettage is performed following completion of excision, and hemostasis is obtained with a Ball electrode or regular tip cautery. The anterior lip of the cervix was grasped with a single tooth tenaculum. The cervix was dilated up to 5 mm, then the scope was inserted in the patient's uterus. Inspection revealed endometrial polyp. The Myosure Reach device was used; it was introduced through the operative channel and polypectomy done with no complications. The scope was then taken out from the uterine cavity, sharp curettings was carried on with minimal to moderate amount of tissues retrieved. At the end of the procedure, all instruments were taken out of the patient uterine and vaginal cavity. The single tooth tenaculum was removed and homeostasis was assured using pressure. At the end, Monsel's solution was applied to the cone bed. The patient tolerated the procedure well and, all instruments were taken out of the patient vaginal cavity, and the patient was transferred to the PACU in stable condition.
[2024-05-01 13:19] VITALS: BP 109/71; PULSE 76; RESP 18; TEMP 36.1; O2SAT 95
[2024-05-01 13:24] VITALS: BP 103/73; PULSE 73; RESP 18; O2SAT 98
[2024-05-01 13:29] VITALS: BP 112/79; PULSE 69; RESP 20; O2SAT 98
[2024-05-01 13:34] VITALS: BP 125/71; PULSE 65; RESP 20; O2SAT 99
[2024-05-01 13:49] VITALS: BP 129/78; PULSE 62; RESP 16; TEMP 36.2; O2SAT 98
== END 2024-05-01 14:11 | disposition home or self-care (01) ==
PROVIDERS: PCP Family Medicine; Visit Provider Obstetrics & Gynecology
PROC: 0UDB8ZZ Extraction of Endometrium, Via Natural or Artificial Opening Endoscopic (ICD-10-PCS; CPT 58558; principal; 2024-05-01 13:00)
PROC: 0UBC7ZZ Excision of Cervix, Via Natural or Artificial Opening (ICD-10-PCS; CPT 57522; 2024-05-01 13:00)
DX: N93.9 Abnormal uterine and vaginal bleeding, unspecified (principal); N84.0 Polyp of corpus uteri; N87.1 Moderate cervical dysplasia; N83.291 Other ovarian cyst, right side; M06.9 Rheumatoid arthritis, unspecified; E55.9 Vitamin D deficiency, unspecified; D64.9 Anemia, unspecified; E78.5 Hyperlipidemia, unspecified; E03.9 Hypothyroidism, unspecified; K21.9 Gastro-esophageal reflux disease without esophagitis; G47.33 Obstructive sleep apnea (adult) (pediatric); G47.36 Sleep related hypoventilation in conditions classified elsewhere; Z79.899 Other long term (current) drug therapy; Z88.2 Allergy status to sulfonamides; Z88.5 Allergy status to narcotic agent; Z98.890 Other specified postprocedural states; F17.210 Nicotine dependence, cigarettes, uncomplicated
CPT/HCPCS: 58558; 57461; 81025; 88305; 88307; J1100; J1885; J2003; J2004; J2250; J2405; J2704; J3010

== ENCOUNTER → 2024-05-01 10:24 | Outpatient (BNV) | payer OTHER, SELFPAY | PROVIDERS: PCP Family Medicine; Visit Provider Obstetrics & Gynecology | DX: N93.9 Abnormal uterine and vaginal bleeding, unspecified (principal); N84.0 Polyp of corpus uteri | CPT/HCPCS: 57461 ==

== ENCOUNTER 2024-05-19 11:33 | Outpatient (AMB) | payer OTHER, SELFPAY ==
--- NOTE | 2024-05-19 11:48 | A.OFFVIS_ITS ---
Intake Visit Reasons: Ultra sound follow up Allergies codeine Allergy (Mild, Verified 05/19/24 11:49) Unknown sulfasalazine Allergy (Unknown, Verified 05/19/24 11:49) Confusion Codeine Phosphate Allergy (Intermediate, Uncoded 04/24/24 15:05) Unknown HPI Comments Details: Patient is here today for a pelvic follow up due to history of complex ovarian cyst. She admits to having sharp discomfort a few times a week lasting 5-10 minutes. [facility] Medical History Upper respiratory infection Complex ovarian cyst Complex cyst of right ovary Hypothyroidism (acquired) Rheumatoid arthritis GERD (gastroesophageal reflux disease) Anemia Low vitamin D level Hyperlipidemia Obstructive sleep apnea Nocturnal hypoxemia Physical exam Surgical History History of lumbar surgery Family History Father No problems noted. 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 Cognitive needs: No Hearing needs: No Vision needs: No Female Reproductive History Menstrual Age of Menarche: 11 Results Reviewed Results Reviewed: [address] [address] Ultrasound Report Signed Patient: Linda Wilson I MR#: [id number] : 1975 Acct:[id number] Age/Sex: 48 / F ADM Date: 04/30/24 Loc: HO.US Attending Dr: Raven Hermosillo CNM Ordering Physician: Raven Hermosillo CNM Date of Service: 04/30/24 Procedure(s): US pelvic and transvaginal Accession Number(s): [id number] cc: Torito Earl MD; Raven Hermosillo CNM~ CLINICAL HISTORY: N83.299 - Other ovarian cyst, unspecified side US pelvis transabdominal and transvaginal Comparison: US/SR - US PELVIC AND TRANSVAGINAL - 03/02/24 14:03 EST Findings: Transabdominal scanning performed for overall anatomy. Transvaginal scanning performed for additional detail. Anteverted uterus is 9.7 cm length. Normal myometrium. Endometrium 12 mm thickness. Right ovary 3.3 x 2.0 x 3.0 cm. There is a 2.2 x 1.7 x 1.6 cm involuting physiologic cyst within the right ovary. There is an additional 7 x 7 x 7 mm complex cyst within the right ovary, compatible with a hemorrhagic physiologic cyst. There is no suspicious ovarian mass. Left ovary 3.2 x 1.9 x 1.9 cm. Normal color Doppler of both ovaries. No free fluid. IMPRESSION: 1. Small physiologic cysts within the right ovary. Otherwise unremarkable examination 2. Unremarkable appearance of the endometrium on the current study. The previously seen echogenic nodule is no longer identified. This document has been electronically signed by: Emilia Gary MD on 05/05/2024 16:47:12 Dictated By: Emilia Gary MD Signed By: <Electronically signed by Emilia Gary MD in OV> 05/05/241647 DD/ 46 TD/TT: 05/05/241646 Set Up Mechanic Automatic Line: Assessment & Plan Assessment & Plan (1) Complex cyst of right ovary: Code(s): N83.291 - Other ovarian cyst, right side Category: Medical (2) Pelvic pain: Code(s): R10.2 - Pelvic and perineal pain Plan: If pain increases to notify the office for further evaluation. [id number] self-help medication per manufacture's recommendation maybe utilized. Plan Discussed: Ultrasound findings- IMPRESSION: 1. Small physiologic cysts within the right ovary. Otherwise unremarkable examination 2. Unremarkable appearance of the endometrium on the current study. The previously seen echogenic nodule is no longer identified. Also noted a 7 mm complex ovarian cyst. Plan pelvic ultrasound follow up to follow the complex cyst. The patient expressed understanding and agreement with the plan of care. All of her questions and concerns were addressed to the best of my ability. This note is constructed using voice recognition software. While every effort has been made to ensure accuracy, machine ironer errors may have been included. Orders: Orders US pelvic and transvaginal 07/01/24 N83.291 - Other ovarian cyst, right side Coding Level of Care Code Est Pt Level 3 (61386) Diagnoses Complex cyst of right ovary N83.291 Pelvic pain R10.2
== END 2024-05-19 12:20 | disposition home or self-care (01) ==
LOC: HO.HWS 11:33
PROVIDERS: PCP Family Medicine; Visit Provider Advanced Practice Midwife
DX: N83.291 Other ovarian cyst, right side (principal); R10.2 Pelvic and perineal pain
CPT/HCPCS: 99213

== ENCOUNTER → 2024-05-19 11:33 | Outpatient (BNVA) | payer OTHER, SELFPAY | PROVIDERS: PCP Family Medicine; Visit Provider Advanced Practice Midwife ==

== ENCOUNTER 2024-06-08 12:04 | Outpatient (AMB) | payer OTHER, SELFPAY ==
--- NOTE | 2024-06-08 12:04 | MHC.OFFVIS ---
Intake Visit Reasons: post op/DO NOT RS Intake Note: cell #[phone] Allergies codeine Allergy (Mild, Verified 05/19/24 11:49) Unknown sulfasalazine Allergy (Unknown, Verified 05/19/24 11:49) Confusion Codeine Phosphate Allergy (Intermediate, Uncoded 04/24/24 15:05) Unknown HPI Comments Details: The patient is presenting post hysteroscopy D&C with LEEP cone and post cone ECC, the patient has no complaints minimal vaginal bleeding no feverishness chills or abdominal pain. The pathology showed the following: A. Endometrium, curettage: Mixed pattern predominantly inactive and secretory endometrium with stromal and epithelial breakdown; no atypia or hyperplasia identified. B. Cervix, anterior lip, LEEP: Inflamed cervical transformation zone mucosa with reactive changes; no atypia identified. C. Cervix, posterior lip, LEEP: Inflamed cervical transformation zone mucosa with reactive changes; no atypia identified. D. Endocervix, excision: Inflamed cervical transformation and endocervical mucosa with squamous metaplasia and reactive changes; no atypia identified. E. Endocervix, post cone curettage: Few fragments of endocervical epithelium and benign endometrium; no atypia identified. Comment: Multiple additional levels are examined on B, C and D The following workup was done.: H&H= 35.7 TSH within normal normal free T4 but low free T3, the patient is under the care of her PCP regarding hypothyroidism, hCG, GC and chlamydia were negative. Endometrial biopsy pathology showed no evidence of hyperplasia and/or malignancy. Co testing was done in 03/22 showed ascus/HPV positive, this was followed by colpo biopsy ECC which showed 12:00 o'clock biopsy LETY 2 otherwise unremarkable Mammogram BI-RADS 2 03/22 Pelvic ultrasound showed the following: IMPRESSION: 1. Hyperechoic focus within the fundal portion of the endometrium measuring up to 0.8 cm which could represent an endometrial polyp. Direct visualization could help further evaluate. 2. Multiple complex right ovarian cysts measuring up to 2.7 cm. Findings may represent hemorrhagic cysts. 3. Sonographically unremarkable left ovary. 4. Trace pelvic free fluid. 05/18 for repeat pelvic ultrasound showed the following: IMPRESSION: 1. Small physiologic cysts within the right ovary. Otherwise unremarkable examination 2. Unremarkable appearance of the endometrium on the current study. The previously seen echogenic nodule is no longer identified [facility] Medical History Upper respiratory infection Complex ovarian cyst Complex cyst of right ovary Hypothyroidism (acquired) Rheumatoid arthritis GERD (gastroesophageal reflux disease) Anemia Low vitamin D level Hyperlipidemia Obstructive sleep apnea Nocturnal hypoxemia Physical exam Surgical History History of lumbar surgery Family History Father No problems noted. 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 Cognitive needs: No Hearing needs: No Vision needs: No Female Reproductive History Menstrual Age of Menarche: 11 Review of Systems Const All systems reviewed & are unremarkable except as noted in HPI and below Reports as per HPI and Reports no additional complaints GI Reports no additional complaints Reports no additional complaints Telehealth Telehealth Telehealth [facility] Location of provider rendering services: practice address Location of patient: address on file Patient Identification confirmed using: Name, : Yes Telehealth method: video Patient verbally consented to treatment: Yes Patient verbally consented to billing insurance company: Yes Patient informed of any privacy concerns related to visit: Yes Minutes spent on Phone/Video with Pt.: 6 Assessment & Plan Assessment & Plan (1) Complex ovarian cyst: Code(s): N83.299 - Other ovarian cyst, unspecified side Category: Medical Plan: Discussed with the patient ultrasound findings showing the previously identified complex cyst has resolved. The patient was instructed to call if symptoms recur. All questions were answered the patient verbalized understanding. (2) LETY II (cervical intraepithelial neoplasia II): Code(s): N87.1 - Moderate cervical dysplasia Category: Medical Plan: Discussed with the patient the results the pathology of the excisional specimen being negative, explained that the the patient that a completely negative excisional specimen raises the concern that the lesion was missed , in addition discussed with the patient that the risk of recurrent cervical dysplasia is significantly higher and can occur years after treatment, the meantime to recurrence is around 4 years and therefore , the recommended management is similar to those with positive margins, specifically in patients who are not interested in future fertility (the patient is status post sterilization), options of treatment include either repeat LEEP cone with post cone ECC or observation with HPV based testing/colposcopy and ECC at 6 months. All pros and cons, risks and benefits of each were discussed with the patient, the patient decided to schedule a six-months repeat co testing/colpo/biopsy/ECC. Instructions given the patient to schedule a six-month appointment for co testing/colpo/biopsy/ECC. All questions answered, the patient verbalized understanding (3) Abnormal uterine bleeding (AUB): Code(s): N93.9 - Abnormal uterine and vaginal bleeding, unspecified Category: Medical Plan: Discussed with the patient the results of the work up done and options of treatment including Lysteda, control pills, Mirena IUD, endometrial ablation and hysterectomy. All pros, cons, risks and benefits if each option was discussed with the patient and the patient decided to go ahead with Mirena IUD so a more detailed discussion about it was conducted including mechanism of action, risks (uterine perforation, infection, injury to bladder, bowel, displacement, and others) benefits (hypo menorrhea, amenorrhea, ...). GC/CT were taken and the patient was instructed to schedule Mirena IUD insertion on day 1-5 of next cycle . All questions answered, the patient verbalized understanding I spent a total of 20 minutes reviewing the chart, talking to the patient via video and documenting in the medical record. Coding Level of Care Code Tele Est Pt Level 3 (67487) Diagnoses Complex ovarian cyst N83.299 LETY II (cervical intraepithelial neoplasia II) N87.1 Abnormal uterine bleeding (AUB) N93.9
== END 2024-06-08 13:15 | disposition home or self-care (01) ==
LOC: HO.HWS 12:04
PROVIDERS: PCP Family Medicine; Visit Provider Obstetrics & Gynecology
DX: N83.299 Other ovarian cyst, unspecified side (principal); N87.1 Moderate cervical dysplasia; N93.9 Abnormal uterine and vaginal bleeding, unspecified
CPT/HCPCS: 99213

== ENCOUNTER 2024-07-01 10:46 | Outpatient (REF) | payer OTHER, SELFPAY ==
--- NOTE | ~2024-07-01 | US_ITS ---
CLINICAL HISTORY: N83.291 - Other ovarian cyst, right side US pelvis transabdominal and transvaginal Comparison: US/[place] - US PELVIC AND TRANSVAGINAL - 04/30/24 16:32 EST US/SR - US PELVIC AND TRANSVAGINAL - 03/02/24 14:03 EST Findings: Transabdominal scanning performed for overall anatomy. Transvaginal scanning performed for additional detail. Anteverted uterus is 11.5 cm length. Normal myometrium. Endometrium 30 mm thickness. There is an anechoic cystic appearing area within the endometrium measuring 0.7 x 1.1 x 0.6 cm near the uterine fundus Right ovary 3.7 x 3.3 x 3.7 cm. Within the right ovary there is a anechoic septated 1.5 x 2.3 x 1.9 cm cyst with increased through-transmission. Septation is thin and there are no solid components or internal vascularity. There is a simple cystic structure within the right ovary measuring 1.8 cm in diameter consistent with a dominant follicle. Previously seen 0.7 cm complex cyst in the left ovary is no longer visualized. Previously seen involuting physiologic cyst is no longer seen. Left ovary 2.1 x 3.0 x 1.2 cm. Normal grayscale morphology of the left ovary. No free fluid. IMPRESSION: 1. Thickened endometrium measuring 30 mm with 1.1 cm cystic structure within the endometrium. Findings raise concern for endometrial hypoplasia or malignancy, consider gynecological consultation and endometrial biopsy. 2. Interval resolution of previously seen right ovarian cysts. There is a new simple 1.8 cm dominant follicle as well as a septated 2.3 cm cyst in the right ovary. This document has been electronically signed by: Ubaldo Rice MD on 07/02/2024 21:57:38
== END 2024-07-01 10:47 | disposition home or self-care (01) ==
LOC: HO.US 10:46
PROVIDERS: PCP Family Medicine; Visit Provider Advanced Practice Midwife
DX: N83.291 Other ovarian cyst, right side (principal)
CPT/HCPCS: 76830; 76856

== ENCOUNTER → 2024-07-01 10:48 | Outpatient (BNV) | payer OTHER, SELFPAY | PROVIDERS: PCP Family Medicine; Visit Provider Radiology Diagnostic Radiology | DX: N85.00 Endometrial hyperplasia, unspecified (principal) | CPT/HCPCS: 76830; 76856 ==

== ENCOUNTER 2024-07-15 10:44 | Outpatient (AMB) | payer OTHER, SELFPAY ==
--- NOTE | 2024-07-15 10:47 | A.OFFVIS_ITS ---
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 History of right complex ovarian cyst, not having any pelvic pain. History of AUB, ongoing bleeding most days. Hysteroscopy and LEEP completed May 01. [facility] Medical History Upper respiratory infection Complex ovarian cyst Complex cyst of right ovary Hypothyroidism (acquired) Rheumatoid arthritis GERD (gastroesophageal reflux disease) Anemia Low vitamin D level Hyperlipidemia Obstructive sleep apnea Nocturnal hypoxemia Physical exam Surgical History History of lumbar surgery Family History Father No problems noted. 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 Cognitive needs: No Hearing needs: No Vision needs: No Female Reproductive History Menstrual Age of Menarche: 11 Date of last menstrual period: 06/13/24 Review of Systems Const All systems reviewed & are unremarkable except as noted in HPI and below Endo Reports no additional complaints Physical Exam Const General: cooperative, healthy appearing and no acute distress Psych Appearance: well kempt Attitude: cooperative Thought process: Normal thought process present Results Reviewed Results Reviewed: [address] [address] Ultrasound Report Signed Patient: Linda Wilson I MR#: [id number] : 1975 Acct:[id number] Age/Sex: 48 / F ADM Date: 07/01/24 Loc: HO.US Attending Dr: Raven Hermosillo CNM Ordering Physician: Raven Hermosillo CNM Date of Service: 07/01/24 Procedure(s): US pelvic and transvaginal Accession Number(s): [id number] cc: Torito Earl MD; Raven Hermosillo CNM~ CLINICAL HISTORY: N83.291 - Other ovarian cyst, right side US pelvis transabdominal and transvaginal Comparison: US/SD - US PELVIC AND TRANSVAGINAL - 04/30/24 16:32 EST US/SR - US PELVIC AND TRANSVAGINAL - 03/02/24 14:03 EST Findings: Transabdominal scanning performed for overall anatomy. Transvaginal scanning performed for additional detail. Anteverted uterus is 11.5 cm length. Normal myometrium. Endometrium 30 mm thickness. There is an anechoic cystic appearing area within the endometrium measuring 0.7 x 1.1 x 0.6 cm near the uterine fundus Right ovary 3.7 x 3.3 x 3.7 cm. Within the right ovary there is a anechoic septated 1.5 x 2.3 x 1.9 cm cyst with increased through-transmission. Septation is thin and there are no solid components or internal vascularity. There is a simple cystic structure within the right ovary measuring 1.8 cm in diameter consistent with a dominant follicle. Previously seen 0.7 cm complex cyst in the left ovary is no longer visualized. Previously seen involuting physiologic cyst is no longer seen. Left ovary 2.1 x 3.0 x 1.2 cm. Normal grayscale morphology of the left ovary. No free fluid. IMPRESSION: 1. Thickened endometrium measuring 30 mm with 1.1 cm cystic structure within the endometrium. Findings raise concern for endometrial hypoplasia or malignancy, consider gynecological consultation and endometrial biopsy. 2. Interval resolution of previously seen right ovarian cysts. There is a new simple 1.8 cm dominant follicle as well as a septated 2.3 cm cyst in the right ovary. 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 Vo regarding her US findings first. (2) Encounter to discuss test results: Code(s): Z71.2 - Person consulting for explanation of examination or test findings Plan Reviewed ultrasound findings- IMPRESSION: 1. Thickened endometrium measuring 30 mm with 1.1 cm cystic structure within the endometrium. Findings raise concern for endometrial hypoplasia or malignancy, consider gynecological consultation and endometrial biopsy. 2. Interval resolution of previously seen right ovarian cysts. There is a new simple 1.8 cm dominant follicle as well as a septated 2.3 cm cyst in the right ovary. This document has been electronically signed by: Ubaldo Riec MD on 07/02/2024 21:57:38 Awaiting clarification/addendum for documentation for correction of left ovary versus right. The patient expressed understanding and agreement with the plan of care. All of her questions and concerns were addressed to the best of my ability. This note is constructed using voice recognition software. While every effort has been made to ensure accuracy, order entry specialist errors may have been included. Coding Level of Care Code Est Pt Level 3 (09387) Diagnoses Abnormal uterine bleeding (AUB) N93.9 Encounter to discuss test results Z71.2
== END 2024-07-15 15:23 | disposition home or self-care (01) ==
LOC: HO.HWS 10:44
PROVIDERS: PCP Family Medicine; Visit Provider Advanced Practice Midwife
DX: N93.9 Abnormal uterine and vaginal bleeding, unspecified (principal); Z71.2 Person consulting for explanation of examination or test findings
CPT/HCPCS: 99213

== ENCOUNTER 2024-08-08 10:21 | Outpatient (REF) | payer OTHER, SELFPAY ==
[2024-08-08 11:12] LABS: Hematocrit 36.3 % (37.0-47.0); Hemoglobin 12.3 g/dl (12.0-16.0); Mean Corpuscular HGB Conc 33.9 g/dl (31.0-35.0); Mean Corpuscular Hemoglobin 32.4 pg (27.0-33.0); Mean Corpuscular Volume 95.5 fL (80.0-98.0); Mean Platelet Volume 9.1 fL (9.4-12.3); Platelet Count 326 X10*3/uL (160-400); White Blood Count 7.8 X10*3/uL (4.8-10.8)
[2024-08-08 11:50] LABS: Anion Gap 10 (12-20); Blood Urea Nitrogen 14 mg/dL (9-16); Calcium 8.9 mg/dL (8.4-10.2); Carbon Dioxide 25 mmol/L (22-29); Chloride 109 mmol/L (96-108); Estimated Glomerular Filt Rate > 60; Glucose Random 99 mg/dL (60-115); Potassium 4.6 mmol/L (3.3-5.1); Sodium 139 mmol/L (135-145)
[2024-08-08 11:56] LABS: Free T4 (Free Thyroxine) 1.07 ng/dL (0.71-1.85); Thyroid Stimulating Hormone 1.72 uIU/mL (0.32-4.0); Vitamin D 25-OH Total 36.4 ng/mL (>30)
[2024-08-09 15:28] LABS: Triiodothyronine T3 Total 85 ng/dL (76-181)
== END 2024-08-08 10:22 | disposition home or self-care (01) ==
LOC: HO.LAB 10:21
PROVIDERS: Advanced Practice Midwife; PCP Family Medicine; Visit Provider Family Medicine
DX: Z00.00 Encounter for general adult medical examination without abnormal findings (principal); E03.9 Hypothyroidism, unspecified; R00.2 Palpitations; E55.9 Vitamin D deficiency, unspecified; N93.9 Abnormal uterine and vaginal bleeding, unspecified
CPT/HCPCS: 36415; 80048; 82306; 84439; 84443; 84480; 85027

== ENCOUNTER 2024-08-09 07:55 | Emergency (ER) | payer OTHER, SELFPAY ==
--- NOTE | ~2024-08-09 | US_ITS ---
CLINICAL HISTORY: severe pelvic pain US pelvis transabdominal and transvaginal with color and duplex Doppler Comparison: US - US PELVIC AND TRANSVAGINAL - 07/01/24 10:56 EST US/[place] - US PELVIC AND TRANSVAGINAL - 04/30/24 16:32 EST Findings: Transabdominal scanning performed for overall anatomy. Transvaginal scanning performed for additional detail. LMP: Heavy menstrual bleeding since 08/05/2024 Anteverted uterus, with heterogeneous echotexture measuring 10.2 x 6.5 x 7.3 cm possible diffuse adenomyosis. Thickened endometrium measuring 18 mm in thickness. Incidental nabothian cysts The right ovary measures, 5.4 x 3.4 x 2.8 cm. Septated cyst versus abutting functional cysts measuring 3.3 x 2.1 x 2.4 cm previously measuring 1.5 x 2.3 x 1.5 cm with an adjacent anechoic cyst measuring 2.3 x 2.0 x 2.1 cm previously measuring 1.4 x 1.8 x 1.5 cm.normal color and arterial spectral Doppler waveform. The left ovary measures, 3.2 x 2.1 x 1.9 cm. Limited doppler interrogation due to ovarian positioning. No adnexal masses or fluid collections. No free fluid Impression: 1. Thickened endometrium. 2. Probable functional cysts right ovary. No evidence of ovarian torsion on the right. 3. Limited assessment of the left ovary. This document has been electronically signed by: Tim Archer MD on 08/09/2024 10:33:01
[2024-08-09 08:09] VITALS: BP 118/70; PULSE 92; RESP 18; TEMP 36.8; O2SAT 99; BMI 33.1
[2024-08-09 08:50] LABS: MANUAL DIFF FLAG NO
[2024-08-09 09:05] LABS: Basophils Percent Auto 0.1 % (0-2); Eosinophils Absolute Auto 0.1 X10*3/uL (0.0-0.4); Eosinophils Percent Auto 0.8 % (0-4); Hematocrit 35.5 % (37.0-47.0); Hemoglobin 11.9 g/dl (12.0-16.0); Lymphocytes Absolute Auto 1.3 X10*3/uL (1.2-4.9); Mean Corpuscular HGB Conc 33.5 g/dl (31.0-35.0); Mean Corpuscular Hemoglobin 32.5 pg (27.0-33.0); Monocytes Absolute Auto 0.7 X10*3/uL (0.1-1.2); Monocytes Percent Auto 6.8 % (2-11); Neutrophils Absolute Auto 7.9 x10*3/uL (2.0-8.3); Neutrophils Percent Auto 78.3 % (45-73); Platelet Count 332 X10*3/uL (160-400); Red Blood Count 3.66 X10*6/uL (4.20-5.50); White Blood Count 10.1 X10*3/uL (4.8-10.8)
[2024-08-09 09:15] LABS: Alanine Aminotransferase 16 U/L (0-31); Alkaline Phosphatase 69 U/L (39-117); Anion Gap 11 (12-20); Aspartate Amino Transferase 18 U/L (5-31); Bilirubin Total 0.4 mg/dL (0.0-1.0); Blood Urea Nitrogen 11 mg/dL (9-16); Carbon Dioxide 24 mmol/L (22-29); Chloride 109 mmol/L (96-108); Creatinine Clr Calc Pharmacy 102.3; Estimated Glomerular Filt Rate > 60; Glucose Random 102 mg/dL (60-115); Magnesium 1.9 mg/dL (1.6-2.6); Potassium 4.8 mmol/L (3.3-5.1); Sodium 139 mmol/L (135-145); Total Protein 6.7 g/dL (6.5-8.0)
[2024-08-09 09:16] LABS: HCG Quantitative < 2 mIU/mL
[2024-08-09 09:23] VITALS: BP 112/73; PULSE 82; RESP 16; TEMP 36.9; O2SAT 99
--- NOTE | 2024-08-09 09:41 | ED_ITS ---
HPI - Female Genitourinary General Chief complaint: Vaginal Bleeding Stated complaint: vaginal bleeding Time Seen by Provider: 08/09/24 09:09 Source: patient Mode of arrival: ambulatory Limitations: no limitations History of Present Illness ED Provider: SHABNAM BYNUM PA-C HPI Narrative: 49 year old female with pmhx significant for abnormal uterine bleeding, LETY 2, ovarian cysts, anemia, GERD, RA, hypothyroidism presents to the ED today for evaluation of heavy vaginal bleeding x3 days. She reports waking up feeling SOB and light headed this morning. Endorses severe pelvic/ back pain. She has been going through approximately 5-6 soaked pads per hour since Saturday. Reports taking Tylenol at home with relief. Her last dose was yesterday. She called her PCP and OBGYN at the start of her symptoms (3 days ago). She was able to push up her follow up appointment w/ OBGYN to this Saturday (in 2 days) and had routine outpatient labs drawn yesterday ordered by her PCP. She is currently on methotrexate for RA. She is not on AC. Of note, patient follows with OBGYN, Dr. Vo. Reports hysteroscopy and LEEP procedure in April of this year. Her last follow up appointment Dr. Vo's OLLIE pproximately 1 month ago following an abnormal pelvic ultrasound. Pelvic ultrasound on 07/01/2024 shows thickened endometrium measuring 30 mm with 1.1 cm cystic structure within the endometrium. There was concern for endometrial hyperplasia or malignancy. There was also a new simple 1.8 cm dominant follicle and a new septated 2.3 cm cyst in the right ovary. On review of note from 07/15/2024, patient was awaiting discussion with Dr. Vo for Mirena IUD placement due to AUB. She is hoping to discuss hysterectomy with her OBGYN this Saturday. Related Data Home Medications ?Medication ?Instructions ?Recorded ?Confirmed celecoxib 200 mg capsule (Celebrex) 200 mg PO BID 02/12/24 methotrexate sodium 5 mg tablet 25 mg PO QWEEK 02/12/24 tofacitinib 11 mg tablet,extended 11 mg PO DAILY 02/12/24 release 24 hr (Xeljanz XR) Previous Rx's ?Medication ?Instructions ?Recorded peg 3350-electrolytes 236 240 ml PO Q10M colonoscopy 1 day 07/12/23 gram-22.74 gram-6.74 gram-5.86 #4,000 mL gram solution (Golytely) betamethasone dipropionate 0.05 % 1 appl topical BID PRN skin 06/04/23 topical cream irritation 14 days #60 grams folic acid 1 mg tablet 1 mg PO DAILY 90 days #90 tabs 09/19/23 ascorbate calcium (vitamin C) 500 500 mg PO .COMPLEX 30 days #15 tabs 10/06/23 mg tablet docusate sodium 100 mg capsule 100 mg PO BID 30 days #60 caps 10/06/23 (Colace) ferrous sulfate 325 mg (65 mg 325 mg PO Q OTHER DAY 30 days #15 02/26/24 iron) tablet,delayed release tabs metoprolol tartrate 25 mg tablet 12.5 mg (1/2 x 25 mg) PO BID PRN 04/08/24 palpitations 30 days #30 tabs albuterol sulfate 90 mcg/actuation 2 puff inhalation Q6H PRN 04/24/24 aerosol inhaler shortness of breath or wheezing #6.7 grams cholecalciferol (vitamin D3) 50 1,250 mcg (25 x 50 mcg (2,000 25 mcg (2,000 unit) capsule unit)) PO DAILY 30 days #30 caps famotidine 20 mg tablet (Pepcid) 20 mg PO BEDTIME #30 tabs 07/07/24 levothyroxine 137 mcg tablet 137 mcg PO DAILY 30 days #30 tabs 07/28/24 tranexamic acid 650 mg tablet 1,300 mg (2 x 650 mg) PO TID 5 08/09/24 days #30 tabs Allergies Allergy/AdvReac Type Severity Reaction Status Date / Time codeine Allergy Mild Unknown Verified 08/09/24 08:11 sulfasalazine Allergy Unknown Confusion Verified 08/09/24 08:11 Codeine Phosphate Allergy Intermediate Unknown Uncoded 04/24/24 15:05 Review of Systems 2 Review of Systems: Yes all other systems are reviewed and are negative PMFSH Past Medical History Attestation statement: The following information was validated with the patient. Source: old records reviewed and nursing notes reviewed Medical History Upper respiratory infection Complex ovarian cyst Complex cyst of right ovary Hypothyroidism (acquired) Rheumatoid arthritis GERD (gastroesophageal reflux disease) Anemia Low vitamin D level Hyperlipidemia Obstructive sleep apnea Nocturnal hypoxemia Physical exam Surgical History History of lumbar surgery Family History Family History Father No problems noted. 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 Cognitive needs: No Hearing needs: No Vision needs: No Physical Exam 2 Vital Signs: Vital Signs: Last Vital Signs Temp 98.4 F 08/09/24 12:09 Pulse 76 08/09/24 12:09 Resp 16 08/09/24 12:09 BP 94/60 08/09/24 12:09 Pulse Ox 97 08/09/24 12:09 O2 Del Method Room Air 08/09/24 12:09 BMI result Body Mass Index 33.1 vital signs stable, not hypoxic or tachycardic General: Well appearing, in no acute distress. Skin: Warm, dry, intact. No rashes or lesions. no palor. Head: Normocephalic, atraumatic. EENT: Hearing is intact b/l. Conjunctiva clear. PERRLA. EOM intact. Moist mucous membranes.? Cardiac: Chest wall symmetric. RRR Lungs: Normal respiratory effort without accessory muscle use. CTA bilaterally Abdomen: Soft, non-tender, non-distended. No rebound tenderness or guarding. Positive BS x4. : Pelvic exam performed by myself, assisted by HERNAN Rodriguez. External genitalia is normal in appearance without lesions, swelling, masses or tenderness. Vaginal canal is pink and moist with moderate amount of blood. Small quarter-sized clot removed from vaginal canal. Cervix is non-tender without lesions or erosions. No friability. Uterus is non-tender. Ovaries are non-tender without palpable masses or enlargement. No cervical motion tenderness on bimanual exam. Back: No midline spinous or paraspinal tenderness. No step off deformity. Neuro: AOx3. Normal speech. Ambulating with steady gait. Course Course Course Narrative: 1158 -- H&H 11.9/35.5, slightly decreased when compared to H&H of 12.3/36.3 yesterday. Chemistry without acute electrolyte abnormality requiring intervention. No ROXANNE. Liver function WNL. Beta quant undetectable. Pelvic ultrasound showing thickened endometrium measuring 18 mm in thickness with incidental level and cysts. Anteverted uterus with heterogeneous echotexture measuring 10.3 x 6.5 x 7.3 possible diffuse adenomyosis. Right ovary measures 5.4 x 3.4 x 2.8 cm with septated cyst versus abutting functional cyst measuring 3.3 x 2.1 x 2.4 cm, somewhat enlarged since previous with an additional adjacent anechoic cyst measuring 2.3 x 2 x 2.1 cm, somewhat enlarged since previous. Normal Doppler flow. Left ovary measures 3.2x 2.1 x 1.9 cm with limited Doppler interrogation due to ovarian positioning. No adnexal masses or fluid collection. No free pelvic fluid. Discussed all work up results with patient. Patient treated with Tylenol for pain. Does not wish to receive any other pain medication. Plan for repeat CBC Pelvic exam performed by myself, assisted by log skidderEj Rodriguez. External genitalia is normal in appearance without lesions, swelling, masses or tenderness. Vaginal canal is pink and moist with moderate amount of blood. Small quarter-sized clot removed from vaginal canal. Cervix is non-tender without lesions or erosions. No friability. Uterus is non-tender. Ovaries are non-tender without palpable masses or enlargement. No cervical motion tenderness on bimanual exam. Discussed with my attending Dr. Dyson - recommending trial of IV TXA and IV toradol. Discussed with patient who is agreeable. 6292 -- repeat CBC shows improvement in hemoglobin to 12. not down trending. on re-evaluation, patient reports improvement of symptoms. she has not had to change her pad since pelvic exam (approximately 1 hour 45 minutes ago). her discomfort has improved with toradol. I did have her use the restroom to check her pad - she states that she has not passed any clots and bleeding is somewhat minmal. > discussed with my attending. recommending 5 day course of PO TXA outpatient. I feel this is reasonable. Discussed with patient who is agreeable. She has follow up with OBGYN Dr. Vo in two days. Advised to keep this appointment for follow up/ more permanent solution to her vaginal bleeding. Patient has remained stable throughout ED visit today. Discussed worrisome signs and symptoms and when to return to the ED. All questions answered at this time. Patient is agreeable with disposition and stable for discharge. Medications Administered Discontinued Medications Generic Name Dose Route Start Last Admin Trade Name Freq PRN Reason Stop Dose Admin Acetaminophen 975 mg 08/09/24 10:24 08/09/24 10:34 Acetaminophen 325 Mg Tablet PO 08/09/24 10:25 975 mg ONCE ONE Administration Tranexamic Acid 1,000 mg/ 60 mls @ 360 mls/hr 08/09/24 11:50 08/09/24 12:16 Sodium Chloride IV 08/09/24 11:59 360 mls/hr ONCE ONE Administration Ketorolac Tromethamine 10 mg 08/09/24 11:50 08/09/24 12:16 Ketorolac Tromethamine 15 Mg/Ml Vial IVPUSH 08/09/24 11:51 10 mg ONCE ONE Administration Medical Decision Making Medical Decision Making [facility] Narrative: 49 year old female with pmhx significant for abnormal uterine bleeding, LETY 2, ovarian cysts, anemia, GERD, RA, hypothyroidism presents to the ED today for evaluation of heavy vaginal bleeding x3 days. Based on history, physical exam, and ED workup patient?s presentation is not consistent with ectopic , molar , life-threatening coagulopathy, trauma, serious bacterial infection, central process or other emergency. Most likely, patient?s bleeding is secondary to fibroids or other non-emergent cause of abnormal uterine bleeding. ED workup: CBC, BMP, UA, bHCG, Type&Screen, pelvic ultrasound Differential Diagnosis Differential Diagnoses: The differential diagnosis associated with the presentation includes As above Admission/Observation not indicated. Lab Data [facility] Lab Attestation statement: I reviewed the patient's lab results. as above. 08/09/24 12:08 08/09/24 08:46 Labs: Lab Results 08/09/24 08/09/24 08/09/24 Range/Units 08:46 09:19 12:08 WBC 10.1 10.8 (4.8-10.8) X10*3/uL RBC 3.66 L 3.64 L (4.20-5.50) X10*6/uL Hgb 11.9 L 12.0 (12.0-16.0) g/dl Hct 35.5 L 34.1 L (37.0-47.0) % MCV 97.0 93.7 (80.0-98.0) fL MCH 32.5 33.0 (27.0-33.0) pg MCHC 33.5 35.2 H (31.0-35.0) g/dl RDW 14.0 14.1 (11.0-16.0) % Plt Count 332 339 (160-400) X10*3/uL MPV 9.0 L 9.0 L (9.4-12.3) fL Immature Gran % (Auto) 1.0 H 0.6 H (0.0-0.4) % Neut % (Auto) 78.3 H 74.2 H (45-73) % Lymph % (Auto) 13.0 L 18.0 L (20-40) % [place] % (Auto) 6.8 6.5 (2-11) % Eos % (Auto) 0.8 0.6 (0-4) % Baso % (Auto) 0.1 0.1 (0-2) % Lymph # (Auto) 1.3 1.9 (1.2-4.9) X10*3/uL [place] # (Auto) 0.7 0.7 (0.1-1.2) X10*3/uL Eos # (Auto) 0.1 0.1 (0.0-0.4) X10*3/uL Baso # (Auto) 0.0 0.0 (0.0-0.2) X10*3/uL Abs Immat Gran (auto) 0.10 H 0.06 H (0.00-0.03) X10*3/uL Absolute Neuts (auto) 7.9 8.0 (2.0-8.3) x10*3/uL Absolute Nucleated RBC 0.000 0.000 (0.0-0.012) X10*3/uL Nucleated RBC % (auto) 0.0 0.0 (0.0-0.2) /100WBC Sodium 139 (135-145) mmol/L Potassium 4.8 (3.3-5.1) mmol/L Chloride 109 H (96-108) mmol/L Carbon Dioxide 24 (22-29) mmol/L Anion Gap 11 L (12-20) BUN 11 (9-16) mg/dL Creatinine 0.73 (0.5-1.4) mg/dL Estim Creat Clear Calc 102.3 Estimated GFR > 60 Random Glucose 102 (60-115) mg/dL Calcium 9.0 (8.4-10.2) mg/dL Magnesium 1.9 (1.6-2.6) mg/dL Total Bilirubin 0.4 (0.0-1.0) mg/dL AST 18 (5-31) U/L ALT 16 (0-31) U/L Alkaline Phosphatase 69 (39-117) U/L Total Protein 6.7 (6.5-8.0) g/dL Albumin 4.0 (3.5-5.0) g/dL Beta HCG, Quant < 2 mIU/mL Blood Type O Positive Antibody Screen NEGATIVE Independent Interpretation I performed an independent interpretation of an: Ultrasound Interpretation: Pelvic ultrasound showing thickened endometrium Radiology Impression Discussion of test interpretation with radiology: I have reviewed the radiologist's reading. Radiologist Impression: Procedure(s): US pelvic ovarian doppler Accession Number(s): [id number] cc: Torito Earl MD; Shabnam Bynum~ CLINICAL HISTORY: severe pelvic pain US pelvis transabdominal and transvaginal with color and duplex Doppler Comparison: US - US PELVIC AND TRANSVAGINAL - 07/01/24 10:56 EST US/[place] - US PELVIC AND TRANSVAGINAL - 04/30/24 16:32 EST Findings: Transabdominal scanning performed for overall anatomy. Transvaginal scanning performed for additional detail. LMP: Heavy menstrual bleeding since 08/05/2024 Anteverted uterus, with heterogeneous echotexture measuring 10.2 x 6.5 x 7.3 cm possible diffuse adenomyosis. Thickened endometrium measuring 18 mm in thickness. Incidental nabothian cysts The right ovary measures, 5.4 x 3.4 x 2.8 cm. Septated cyst versus abutting functional cysts measuring 3.3 x 2.1 x 2.4 cm previously measuring 1.5 x 2.3 x 1.5 cm with an adjacent anechoic cyst measuring 2.3 x 2.0 x 2.1 cm previously measuring 1.4 x 1.8 x 1.5 cm.normal color and arterial spectral Doppler waveform. The left ovary measures, 3.2 x 2.1 x 1.9 cm. Limited doppler interrogation due to ovarian positioning. No adnexal masses or fluid collections. No free fluid Impression: 1. Thickened endometrium. 2. Probable functional cysts right ovary. No evidence of ovarian torsion on the right. 3. Limited assessment of the left ovary. This document has been electronically signed by: Tim Archer MD on 08/09/2024 10:33:01 External Record Review External record reviewed: Inpatient record Prescription Management I considered prescription management with: Other (TXA) Chronic Conditions Patient?s care impacted by: Other (AUB) Social Determinants Patient?s care significantly limited by Social Determinants of Health including: Other Social Determinant of Health Critical Care Time Critical Care Time Critical Care Time: No Discharge Plan Discharge Clinical Impression: Abnormal uterine bleeding (AUB) Patient Disposition: Home, Self-Care Instructions: Dysfunctional Uterine Bleeding (ED) Additional Instructions: You were seen in the ED today for heavy vaginal bleeding. Your blood work and physical exam are reassuring. You were given a dose of IV ketorolac and IV tranexamic acid (TXA) with improvement. I am sending you home with a 5 day course of TXA. Take two pills, 3 times a day. This medication is temporary. You need to follow up with your OBGYN. Keep your appointment with Dr. Vo this Saturday. Drink plenty of fluids and get plenty of rest. Return to the ED with new or worsening symptoms such as dizziness, lightheadedness, chest pain, shortness of breath, increased vaginal bleeding. Prescriptions: New tranexamic acid 650 mg tablet 1,300 mg PO TID 5 Days Qty: 30 0RF No Action ascorbate calcium (vitamin C) 500 mg tablet 500 mg PO .COMPLEX 30 Days Qty: 15 3RF Rx Instructions: 500 mg orally every other day; docusate sodium [Colace] 100 mg capsule 100 mg PO BID 30 Days Qty: 60 3RF ferrous sulfate 325 mg (65 mg iron) tablet,delayed release (DR/EC) 325 mg PO Q OTHER DAY 30 Days Qty: 15 3RF Rx Instructions: take w/ vitamin C cholecalciferol (vitamin D3) 50 mcg (2,000 unit) capsule 1,250 mcg PO DAILY 30 Days Qty: 30 3RF famotidine [Pepcid] 20 mg tablet 20 mg PO BEDTIME Qty: 30 3RF levothyroxine 137 mcg tablet 137 mcg PO DAILY 30 Days Qty: 30 3RF betamethasone dipropionate 0.05 % cream 1 appl topical BID PRN (Reason: skin irritation) 14 Days Qty: 60 0RF folic acid 1 mg tablet 1 mg PO DAILY 90 Days Qty: 90 2RF metoprolol tartrate 25 mg tablet 12.5 mg PO BID PRN (Reason: palpitations) 30 Days Qty: 30 1RF peg 3350-electrolytes [Golytely] 236-22.74-6.74 -5.86 gram recon soln 240 ml PO Q10M 1 Days Qty: 4000 0RF Rx Instructions: as per split prep instructions, until fecal effluent is clear methotrexate sodium 5 mg tablet 25 mg PO QWEEK Xeljanz XR 11 mg tablet extended release 24 hr 11 mg PO DAILY celecoxib [Celebrex] 200 mg capsule 200 mg PO BID albuterol sulfate 90 mcg/actuation HFA aerosol inhaler 2 puff inhalation Q6H PRN (Reason: shortness of breath or wheezing) Qty: 6.7 0RF Referrals: Torito Earl MD [Primary Care Provider] - Rc Vo MD [Physician] - Stand Alone Forms: Work/School Release Print Language: Tajik
[2024-08-09] MEDS: Acetaminophen 325 MG TABLET 975 MG PO (10:34)
[2024-08-09 12:09] VITALS: BP 94/60; PULSE 76; RESP 16; TEMP 36.9; O2SAT 97
[2024-08-09 12:14] LABS: MANUAL DIFF FLAG NO
[2024-08-09] MEDS: Ketorolac Tromethamine 15 MG/ML VIAL 10 MG IVPUSH (12:16)
[2024-08-09] MEDS: Tranexamic Acid 1,000 MG in 0.9 % Sodium Chloride 50 ML 360 MG IV (12:16)
[2024-08-09 12:18] LABS: Basophils Percent Auto 0.1 % (0-2); Eosinophils Absolute Auto 0.1 X10*3/uL (0.0-0.4); Eosinophils Percent Auto 0.6 % (0-4); Hematocrit 34.1 % (37.0-47.0); Imm Gran Abs Auto 0.06 X10*3/uL (0.00-0.03); Imm Gran Pct Auto 0.6 % (0.0-0.4); Lymphocytes Absolute Auto 1.9 X10*3/uL (1.2-4.9); Mean Corpuscular HGB Conc 35.2 g/dl (31.0-35.0); Mean Corpuscular Volume 93.7 fL (80.0-98.0); Monocytes Absolute Auto 0.7 X10*3/uL (0.1-1.2); Monocytes Percent Auto 6.5 % (2-11); Neutrophils Percent Auto 74.2 % (45-73); Platelet Count 339 X10*3/uL (160-400); Red Blood Count 3.64 X10*6/uL (4.20-5.50); Red Cell Distribution Width 14.1 % (11.0-16.0); White Blood Count 10.8 X10*3/uL (4.8-10.8)
[2024-08-09 13:57] VITALS: BP 97/61; PULSE 70; RESP 14; TEMP 36.7; O2SAT 98
== END 2024-08-09 13:58 | disposition home or self-care (01) ==
PROVIDERS: Physician Assistant Medical; Emergency Provider Emergency Medicine; PCP Family Medicine
DX: N93.8 Other specified abnormal uterine and vaginal bleeding (principal); R10.2 Pelvic and perineal pain; E03.9 Hypothyroidism, unspecified; R06.02 Shortness of breath; R42 Dizziness and giddiness
CPT/HCPCS: 36415; 76830; 76856; 80053; 83735; 84702; 85025; 86850; 86900; 86901; 93975; 96374; 99284; J1885

== ENCOUNTER → 2024-08-09 08:18 | Outpatient (BNV) | payer OTHER, SELFPAY | PROVIDERS: Emergency Provider Emergency Medicine; PCP Family Medicine; Visit Provider Radiology Diagnostic Radiology | DX: R10.2 Pelvic and perineal pain (principal) | CPT/HCPCS: 76830; 76856; 93975 ==

== ENCOUNTER 2024-08-11 11:17 | Outpatient (REF) | payer OTHER, SELFPAY ==
[2024-08-11 15:45] LABS: CT PCR NOT DETECTED (Not Detect.); NG PCR NOT DETECTED (Not Detect.)
== END 2024-08-11 11:18 | disposition home or self-care (01) ==
LOC: HO.LNP 11:17
PROVIDERS: PCP Family Medicine; Visit Provider Obstetrics & Gynecology
DX: Z30.430 Encounter for insertion of intrauterine contraceptive device (principal); N93.9 Abnormal uterine and vaginal bleeding, unspecified; Z32.02 Encounter for pregnancy test, result negative
CPT/HCPCS: 58100; 58300; 81025; 87491; 87591; 88305; J7298

== ENCOUNTER 2024-08-11 11:17 | Outpatient (AMB) | payer OTHER, SELFPAY ==
--- NOTE | 2024-08-11 11:20 | A.OFFVIS_ITS ---
Vital Signs 08/11/24 11:21 Height 5 ft 5 in Weight 198 lb BMI 32.9 Intake Visit Reasons: vaginal bleeding Radiology Supervisor Required: No Information Interpreted: non-clinical & clinical Jack Spinner: Jack Spinner Present (Kim VIVAS) Accompanied by: Self / Same As Patient Allergies codeine Allergy (Mild, Verified 08/11/24 11:44) Unknown sulfasalazine Allergy (Unknown, Verified 08/11/24 11:44) Confusion Codeine Phosphate Allergy (Intermediate, Uncoded 08/11/24 11:44) Unknown HPI Comments Details: Presenting after emergency room follow-up for heavy menstrual cycle were the following workup was done and it showed the following: H&H =12/34.1 HCG less than 2 TSH, free T4 within normal, free T3 low, the patient is under the care of her PCP Pelvic ultrasound showed the following: Anteverted uterus, with heterogeneous echotexture measuring 10.2 x 6.5 x 7.3 cm possible diffuse adenomyosis. Thickened endometrium measuring 18 mm in thickness. Incidental nabothian cysts The right ovary measures, 5.4 x 3.4 x 2.8 cm. Septated cyst versus abutting functional cysts measuring 3.3 x 2.1 x 2.4 cm previously measuring 1.5 x 2.3 x 1.5 cm with an adjacent anechoic cyst measuring 2.3 x 2.0 x 2.1 cm previously measuring 1.4 x 1.8 x 1.5 cm.normal color and arterial spectral Doppler waveform. The left ovary measures, 3.2 x 2.1 x 1.9 cm. Limited doppler interrogation due to ovarian positioning. No adnexal masses or fluid collections. No free fluid The patient will prescribe tranexamic acid which was started 2 days ago. Last EMB in 05/23 showed the following: A. Endometrium, curettage: Mixed pattern predominantly inactive and secretory endometrium with stromal and epithelial breakdown; no atypia or hyperplasia identified Last cervical biopsy in 04/21 showed LETY 2, the patient is status post LEEP cone with post cone ECC with negative pathology, repeat co testing and colpo biopsy scheduled in 12/21 [facility] Medical History Upper respiratory infection Complex ovarian cyst Complex cyst of right ovary Hypothyroidism (acquired) Rheumatoid arthritis GERD (gastroesophageal reflux disease) Anemia Low vitamin D level Hyperlipidemia Obstructive sleep apnea Nocturnal hypoxemia Physical exam Surgical History History of lumbar surgery Family History Father No problems noted. 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 Cognitive needs: No Hearing needs: No Vision needs: No Female Reproductive History Menstrual Age of Menarche: 11 Physical Exam Vital Signs: BMI result Body Mass Index 32.9 Office Procedures Endometrial Biopsy Details: The patient was counseled regarding the indication and benefits of endometrial sampling to rule out endometrial pathology including not limited to endometrial hyperplasia or endometrial cancer and others; The alternatives (Either do nothing vs. hysteroscopy D&C) & the risks were discussed with the patient including but not limited: pain, uterine perforation, bleeding, infection, possible injury to bladder, bowel, ureter, possible need for blood transfusion with all its possible risks. The patient verbalized understanding all questions answered and signed consent. Urine test done in the office was negative The patient was placed into the dorsal lithotomy position; a speculum was inserted in the vagina. Using aseptic technique for the procedure, the cervix was cleansed with Betadine. The anterior lip of the cervix was grasped with a single tooth tenaculum. The uterus was sounded to 7 cm with a 4 mm Pipelle was used. Tissues samples were obtained and placed in formalin, in a patient labeled container and sent to the pathology department. At the end of the procedure, there was minimal bleeding noted The patient tolerated the procedure well and was discharged in good condition with the following instructions: Nothing in the vagina until the bleeding stops. No sex until the bleeding stops, to call if any of the following occurs: fever (>100.4), flu-like symptoms, abdominal pain, heavy bleeding, four smelling vaginal discharge. The patient was instructed to schedule a Follow up appointment in 2 weeks to discuss pathology results of the biopsy and treatment options. This note was generated with a voice recognition program. Some errors may have been overlooked during the review of this note. Sometimes these errors may affect the content or meaning of a given sentence. 58799-Dmraofhjahn Biopsy IUD Insert/Removal Details Details: The patient is presenting for Mirena IUD insertion Urine test was done in the office and was negative; All the contraindications were excluded. The following possible complications were discussed with the patient: Intrauterine , Ectopic , Sepsis, Pelvic Infection, Irregular Bleeding and Amenorrhea, Perforation, Expulsion, Ovarian Cysts, Breast Cancer, The following adverse effects were discussed with the patient: alteration of menstrual bleeding pattern, including: unscheduled uterine bleeding decreased uterine bleeding increased scheduled uterine bleeding female genital tract bleeding ,amenorrhea , genital discharge , vulvovaginitis , breast pain , benign ovarian cyst and associated complications , dysmenorrhea , Gastrointestinal disorders abdominal/pelvic pain, headache/migraine , back pain , acne , depression Alternative options were discussed with the patient including but not limited: control pills, patch, NuvaRing, Depo-medroxyprogesterone acetate, Nexplanon, copper IUD, sterilization, vasectomy, others The procedure was explained in detail to patient , at the end patient signed the informed consent obtained. A no touch technique was used throughout the procedure. A speculum was placed into vagina and cervix was cleaned with betadine). A tenaculum was placed. A plastic sound was advanced through the external and internal os until it reached the fundus of the uterus, the depth was 8 cm. The sound was then withdrawn. The IUD was loaded in a sterile manner and advanced into position. The string was visualized and cut to 3 cm. Tenaculum site hemostatic. All instruments removed from vagina. Patient tolerated the procedure well. NO complications were noted. Patient was instructed to call for fever over 100.4, significant pain unrelieved by Motrin, IUD expulsion, heavy bleeding, or abnormal discharge. In addition, the following clinical considerations were discussed with the patient to call for removal: A stroke or heart attack ,Very severe or migraine headaches ,Unexplained fever ,Yellowing of the skin or whites of the eyes, as these may be signs of serious liver problems , or suspected , Pelvic pain or pain during sex ,HIV positive seroconversion in herself or her partner , Possible exposure to sexually transmitted infections Unusual vaginal discharge or genital sores , severe vaginal bleeding or bleeding that lasts a long time, or if she misses a menstrual period, Inability to feel Mirena's threads Counseled the patient that the IUD does not protect against STI's, recommended use of condoms for the first 7 days post insertion and explained to the patient that condoms are recommended for patients at risk for sexually transmitted infections. Informed the patient that Mirena IUD is FDA approved for 8 years for contraception for 5 years for the treatment of heavy menses Instructed the patient to schedule a Follow up appointment in 4 to 6 weeks following insertion. This note was generated with a voice recognition program. Some errors may have been overlooked during the review of this note. Sometimes these errors may affect the content or meaning of a given sentence. 32192-EJW Insertion Procedure code (CPT) selection complete Office Meds Mirena 21 mcg/24 hr (up to 8 years) 52 mg intrauterine device Performing Provider: Rc Vo MD Performing Location: [facility] Documented (not given) by: Rc Vo MD on 08/11/24 12:07 Dose Route Admin Location Dispensed Lot Number Expiration Date [facility] Full Fashioned Garment Knitter 1 device intrauterine ea Results AMB Test Urine AMB Test Urine Negative Last Edit by Kim Esquivel CMA on 11:44 Results Reviewed Results Reviewed: Laboratory Last Values [facility] Clinic Negative 08/11/24 11:43 Assessment & Plan Assessment & Plan (1) Abnormal uterine bleeding (AUB): Code(s): N93.9 - Abnormal uterine and vaginal bleeding, unspecified Category: Medical Plan: Instructions given the patient to discontinue Lysteda Repeat EMB done, see procedure Discussed with the patient the results of the work up done and options of treatment including Lysteda, control pills, Mirena IUD, endometrial ablation and hysterectomy. All pros, cons, risks and benefits if each option was discussed with the patient and the patient decided to go ahead with Mirena IUD so a more detailed discussion about it was conducted including mechanism of action, risks (uterine perforation, infection, injury to bladder, bowel, displacement, and others) benefits (hypo menorrhea, amenorrhea, ...). GC/CT were taken and Mirena IUD insertion done, see procedure . Orders: Orders AMB HCG Urine Test Today Z32.02 - Encounter for test, result negative AMB IUD Insertion/Removal - Practice Supplied Today N93.9 - Abnormal uterine and vaginal bleeding, unspecified AMB Endometrial Biopsy Today N93.9 - Abnormal uterine and vaginal bleeding, unspecified Medications: New Mirena (levonorgestrel) 1 device intrauterine ONCE 1 ea 0RF AUB NS N93.9 - Abnormal uterine and vaginal bleeding, unspecified Coding Level of Care Code Est Pt Level 3 (35991) Procedure Only Diagnoses Abnormal uterine bleeding (AUB) N93.9 CPT Codes Endometrial Biopsy - CPT: 14507-Zuamqtdnxqx Biopsy ([id number]) Details - CPT: 90445-SCZ Insertion ([id number])
[2024-08-11 11:21] VITALS: BMI 32.9
== END 2024-08-11 12:12 | disposition home or self-care (01) ==
LOC: HO.HWS 11:17
PROVIDERS: PCP Family Medicine; Visit Provider Obstetrics & Gynecology
DX: N93.9 Abnormal uterine and vaginal bleeding, unspecified (principal); Z30.430 Encounter for insertion of intrauterine contraceptive device; Z32.02 Encounter for pregnancy test, result negative
CPT/HCPCS: 58100; 58300; 99213

== ENCOUNTER 2024-08-11 12:23 | Outpatient (AMB) | payer OTHER, SELFPAY ==
[2024-08-11 12:26] VITALS: BP 98/60; PULSE 70; BMI 33.7
--- NOTE | 2024-08-11 12:26 | MHC.OFFVIS ---
Vital Signs 08/11/24 12:26 Height 5 ft 5 in Weight 202 lb 13.204 oz BMI 33.7 BP 98/60 Blood Pressure Location Lt brachial Position Sitting Pulse 70 Pulse Source Pulse Oximeter Intake Visit Reasons: TIG WELDER/ Palpitations/ Mady Allergies codeine Allergy (Mild, Verified 08/11/24 11:44) Unknown sulfasalazine Allergy (Unknown, Verified 08/11/24 11:44) Confusion Codeine Phosphate Allergy (Intermediate, Uncoded 08/11/24 11:44) Unknown Medication List - Last Reconciled 08/11/24 by Iraj Bartholomew MD albuterol sulfate 90 mcg/actuation 2 puffs inhalation Q6H PRN ascorbate calcium (vitamin C) 500 mg PO DAILY betamethasone dipropionate 0.05% 1 appl topical BID PRN 14 days celecoxib (Celebrex) 200 mg PO BID cholecalciferol (vitamin D3) 1,250 mcg (25 x 50 mcg (2,000 unit)) PO DAILY 30 days docusate sodium (Colace) 100 mg PO BID PRN famotidine (Pepcid) 20 mg PO BEDTIME ferrous sulfate 325 mg PO DAILY folic acid 1 mg PO DAILY 90 days levothyroxine 137 mcg PO DAILY 30 days methotrexate sodium 25 mg PO QWEEK peg 3350-electrolytes 236-22.74-6.74 -5.86 gram (Golytely) 240 mL PO Q10M 1 day tofacitinib ER (Xeljanz XR) 11 mg PO DAILY HPI Comments Details: Linda is a 49-year-old female presenting with cardiac palpitations. She describes a sensation of fluttering in the heart and a sensation sierra to a lump in her throat, with these symptoms developing approximately six months into the treatment for her rheumatoid arthritis medication Xeljanz. Prior to this medication regimen, such symptoms were infrequent. Currently, the palpitations occur regularly, with no clear inciting factors, although she is concerned about potential links between her medication and these symptoms. Clinical assessment noted prior use of a heart monitor, which while identifying some infrequent premature atrial contractions, did not indicate significant pathology. No significant distressing symptoms such as chest pain or dyspnea accompany these episodes, although she does report occasional fatigue. Her medical history includes a prior normal heart function evaluation five years ago. The discussion highlights a suspected sleep apnea diagnosis, which may contribute to her cardiac rhythm concerns. She does not use CPAP as yet. Awaiting sleep Medicine consultation. [facility] Medical History Upper respiratory infection Complex ovarian cyst Complex cyst of right ovary Hypothyroidism (acquired) Rheumatoid arthritis GERD (gastroesophageal reflux disease) Anemia Low vitamin D level Hyperlipidemia Obstructive sleep apnea Nocturnal hypoxemia Physical exam Surgical History History of lumbar surgery Family History Father No problems noted. 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 Cognitive needs: No Hearing needs: No Vision needs: No Female Reproductive History Menstrual Age of Menarche: 11 Review of Systems Const Denies weakness ENT Denies dizziness Card Denies chest pain, Denies chest pain with activity, Denies syncope, Denies rapid heart rate, Denies pedal edema, Denies edema, Denies leg edema, Denies lightheadedness, Reports palpitations, Denies dyspnea, Denies dyspnea on exertion and Denies orthopnea Resp Denies cough, Denies dyspnea and Denies dyspnea on exertion GI Denies hematochezia and Denies change in stool character Musc Denies abnormal gait, Denies muscle cramps, Denies muscle weakness, Denies numbness, Denies radiating pain into limb and Denies tingling Neuro Denies abnormal gait, Denies dizziness, Denies syncope, Denies numbness, Denies tingling and Denies weakness Endo Reports palpitations Physical Exam Vital Signs: Last Vital Signs Pulse 70 08/11/24 12:26 BP 98/60 08/11/24 12:26 BMI result Body Mass Index 33.7 Const General: comfortable and no acute distress Orientation/consciousness: patient oriented x3 HEENT Other: Unremarkable Head: Yes normal to inspection Neck Neck: Yes normal visual inspection Chest Chest palpation & inspection: normal inspection of the chest Resp Auscultation: clear to auscultation bilaterally Cardio Palpation: normal PMI Heart sounds: S1 normal heart sound present, S2 normal heart sound present, no gallops, no murmurs and no rubs GI Palpation (GI): Soft to palpation Back/Spine/Pelvis Other: unremarkable Skin General skin exam: no rashes or lesions noted Neuro General: patient oriented x3 Extrem General: Yes normal to inspection Psych Mental Status: mental status grossly normal Results AMB Test Urine AMB Test Urine Negative Last Edit by Kim Esquivel CMA on 08/11/24 11:44 Assessment & Plan Assessment & Plan (1) Palpitations: Code(s): R00.2 - Palpitations Category: Medical Plan EKG with underlying sinus rhythm at 66/Min; no significant ST-T changes; normal ME and corrected QT. In the Holter monitor, underlying rhythm is sinus with an average rate of 85/Min. Rare supraventricular/ventricular ectopy. Otherwise unremarkable. In 2020, LVEF was within normal range at 55-60% on the echocardiogram. Overall, symptoms possibly related to ectopy but overall burden seems quite low. Hence mainly reassurance. Weight loss. Management of sleep apnea with CPAP or other means. PCP apparently gave her beta-blockers but she is not using it as the blood pressure is already low. Otherwise, we will recheck echocardiogram to ensure there is no change in LVEF. If indeed it remains unchanged, then mainly reassurance. Discussion Notes In my discussion with the patient, we reviewed the need for updated cardiac assessments via echocardiogram and continued evaluation for sleep apnea. We examined cessation of metoprolol owing to the potential exacerbation of her hypotension. The interplay between rheumatoid arthritis medications and potential cardiac effects was acknowledged. Benefits of alternative treatments to CPAP for sleep apnea, such as mandibular advancements, were advised to overcome compliance obstacles. Orders: Orders CA echo transthoracic complete Today Iraj Bartholomew MD R00.2 - Palpitations Medications: Changed From ferrous sulfate take w/ vitamin C 325 mg PO Q OTHER DAY 30 days 15 tabs 3RF To ferrous sulfate take w/ vitamin C 325 mg PO DAILY Geraldine Jackson PA-C From ascorbate calcium (vitamin C) 500 mg orally every other day; 30 days 15 tabs 3RF To ascorbate calcium (vitamin C) 500 mg PO DAILY NOAM Cevallos From docusate sodium (Colace) 100 mg PO BID 30 days 60 caps 3RF To docusate sodium (Colace) 100 mg PO BID PRN NOAM Cevallos Patient Instructions: - Undergo a repeat echocardiogram to evaluate current heart function. - Explore alternate treatments for sleep apnea, such as mandibular advancement devices. - Discontinue metoprolol due to low blood pressure concerns. - Follow up with a sleep specialist regarding sleep apnea management. - Monitor and report any new or worsening cardiovascular symptoms. Coding Level of Care Code New Pt Level 3 (14738) Diagnoses Palpitations R00.2
== END 2024-08-11 12:54 | disposition home or self-care (01) ==
LOC: HO.HCS 12:23
PROVIDERS: PCP Family Medicine; Visit Provider Internal Medicine
DX: R00.2 Palpitations (principal)
CPT/HCPCS: 99213

== ENCOUNTER 2024-09-16 14:47 | Outpatient (REF) | payer OTHER, SELFPAY | END 2024-09-16 14:48 | disposition home or self-care (01) | LOC: HO.US 14:47 | PROVIDERS: PCP Family Medicine; Visit Provider Obstetrics & Gynecology | DX: Z13.89 Encounter for screening for other disorder (principal) ==

== ENCOUNTER 2024-09-17 11:52 | Outpatient (AMB) | payer OTHER, SELFPAY ==
--- NOTE | 2024-09-17 11:58 | A.OFFVIS_ITS ---
Intake Visit Reasons: IUD issues Allergies sulfasalazine Allergy (Intermediate, Verified 08/13/24 12:39) Confusion codeine Allergy (Unknown, Verified 08/13/24 12:39) Unknown HPI Comments Details: Presenting complaining of 1 episode of vaginal scratching that was thought to be secondary to the IUD few days ago and since then has resolved. [facility] Medical History Upper respiratory infection Complex cyst of right ovary Nocturnal hypoxemia Obstructive sleep apnea Hyperlipidemia Low vitamin D level Anemia GERD (gastroesophageal reflux disease) Rheumatoid arthritis Hypothyroidism (acquired) Surgical History Hx of dilation and curettage History of lumbar surgery Family History Father No problems noted. 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 needs: No Hearing needs: No Vision needs: No Female Reproductive History Menstrual Age of Menarche: 11 Review of Systems Const All systems reviewed & are unremarkable except as noted in HPI and below Physical Exam General: Yes no CVA tenderness External Female Exam: normal external appearance and normal appearance of the urethra Speculum Exam - Vagina: normal appearance of the vagina, normal palpation, no lesions and no masses Speculum Exam - Cervix: normal appearance of the cervix, normal palpation, no lesions, no masses, nontender and Other cervical findings present (IUD string in place) Bimanual exam- vagina & uterus: normal bimanual exam, normal palpation, uterine size normal, normal palpation, uterine shape normal, No Cervical tenderness present and non-tender Bimanual Exam- Adnexa, other: normal adnexae Back/Spine/Pelvis Back: no CVA tenderness Assessment & Plan Assessment & Plan (1) Vaginal pain: Code(s): R10.2 - Pelvic and perineal pain Category: Medical Plan: Urine test done in the office was negative. Pelvic ultrasound done today showed IUD in appropriate position Discussed with the patient the finding on ultrasound pelvic exam, the patient was reassured. Instructions given the patient to call in case symptoms recur will attempt showed during the IUD string. All questions answered, the patient verbalized understanding. Coding Level of Care Code Est Pt Level 3 (60436) Diagnoses Vaginal pain R10.2
== END 2024-09-17 15:26 | disposition home or self-care (01) ==
LOC: HO.HWS 11:52
PROVIDERS: PCP Family Medicine; Visit Provider Obstetrics & Gynecology
DX: R10.2 Pelvic and perineal pain (principal)
CPT/HCPCS: 99213

== ENCOUNTER 2024-09-17 14:23 | Outpatient (REF) | payer OTHER, SELFPAY ==
--- NOTE | ~2024-09-17 | US_ITS ---
EXAMINATION: US PELVIS TRANSABDOMINAL AND TRANSVAGINAL HISTORY: R10.2 - Pelvic and perineal pain COMPARISON: Comparison is made with the prior examination dated 08/09/2024. TECHNIQUE: Transabdominal and endovaginal real-time 2D caputo-scale ultrasound was performed. FINDINGS: Uterus: The uterus is normal in size, measuring 9.2 x 5.7 x 6.0 cm. Myometrium demonstrates heterogeneous echotexture. No fibroids are identified. Endometrium: The endometrial stripe measures 6 mm in thickness. An IUD is noted in appropriate position in the endometrial cavity. Right ovary: The right ovary measures 3.0 x 2.5 x 1.4 cm. The right ovary is normal in size and echotexture. Left ovary: The left ovary measures 2.4 x 1.9 x 2.7 cm. The left ovary is normal in size and echotexture. Pelvic fluid: none. US/US pelvic and transvaginal IMPRESSION: Heterogeneous myometrial echotexture. Otherwise unremarkable pelvic ultrasound. IUD in appropriate position in the endometrial cavity. Electronically signed by: Anoop Davila MD 09/17/2024 03:27 PM EDT
== END 2024-09-17 14:24 | disposition home or self-care (01) ==
LOC: HO.US 14:23
PROVIDERS: PCP Family Medicine; Visit Provider Obstetrics & Gynecology
DX: R10.2 Pelvic and perineal pain (principal)
CPT/HCPCS: 76830; 76856

== ENCOUNTER → 2024-09-17 14:24 | Outpatient (BNV) | payer OTHER, SELFPAY | PROVIDERS: PCP Family Medicine; Visit Provider Radiology Diagnostic Radiology | DX: R10.2 Pelvic and perineal pain (principal); Z97.5 Presence of (intrauterine) contraceptive device | CPT/HCPCS: 76830; 76856 ==

== ENCOUNTER 2024-11-13 12:30 | Outpatient (AMB) | payer OTHER, SELFPAY ==
--- NOTE | 2024-11-13 12:25 | MHC.PC.OV ---
Intake Visit Reasons: f/u palpitations, thyroid hormones, resched Intake Note: patient is scheduled to follow up for lab results Oxygen Therapy Technician Required: No Allergies sulfasalazine Allergy (Intermediate, Verified 11/13/24 12:26) Confusion codeine Allergy (Unknown, Verified 11/13/24 12:26) Unknown Tobacco use date assessed: 09/19/23 Dental Screening Dental Screen Date: 09/19/23 HPI f/u palpitations, thyroid hormones, resched HPI Details 49 y/o female presents to f/u palpitations, thyroid hormones via telemedicine. Had last seen Cardiology 08/11/24 for palpitations. Holter monitor showed rare supraventricular/ventricular ectopy but otherwise unremarkable. Per note, symptoms possibly related to ectopy but overall burden was low. Advised weight loss, management of sleep apnea. They plan to recheck echocardiogram. Thyroid hormones all back in normal range by July. Pt notes palpitations have improved. [facility] Medical History Upper respiratory infection Complex cyst of right ovary Nocturnal hypoxemia Obstructive sleep apnea Hyperlipidemia Low vitamin D level Anemia GERD (gastroesophageal reflux disease) Rheumatoid arthritis Hypothyroidism (acquired) Surgical History Hx of dilation and curettage History of lumbar surgery Family History Father No problems noted. 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 Cognitive needs: No Hearing needs: No Vision needs: No Female Reproductive History Menstrual Age of Menarche: 11 Questionnaire Thrive Questionnaire Date Thrive assessed: 04/08/24 I am a: Patient What is your living situation today?: I have a steady place to live Within the past 12 months, did the food you bought not last and you didn't have the money to get more?: Never true Within the past 12 months, did you worry whether your food would run out before you got money to buy more?: Never true Do you have trouble paying for medicines?: No Do you have trouble getting transportation to medical appointments?: No Do you have trouble paying your heating and electricity bill?: No Do you have trouble taking care of your child, family member or friend?: No Do you have trouble with day-to-day activities such as bathing, preparing meals, shopping, managing finances, etc.?: No Are you currently unemployed and looking for a job?: No Are you interested in more education?: No Please select the resources that you would like help with: None Currently or been in a relationship where the following occur: No concerns reported THRIVE Score: 0 LANDRY-7 AMB Questionnaire LANDRY-7 Date LANDRY - 7 assessed: 09/19/23 Source: Developed by Drs. Anoop Osorio, Marivel Parra, Valeriano Kay and colleagues, with an educational butch from [employer]. Review of Systems Const Denies chills, Denies fatigue, Denies fever(s), Denies headache(s) and Denies weakness ENT Denies dizziness and Denies headache(s) Card Denies dyspnea Resp Denies cough, Denies dyspnea, Denies wheezing and Denies other (shortness of breath) Musc Denies numbness and Denies tingling Neuro Denies dizziness, Denies headache(s), Denies numbness, Denies tingling and Denies weakness Psych Denies anxiety and Denies depression Endo Denies fatigue Aller/Immun Denies wheezing Physical exam (Primary Care) Tobacco/Smoking Status: Tobacco use Status Tobacco use date assessed 09/19/23 11/13/24 12:29 Patient Tobacco Use Status Current everyday Tobacco 11/13/24 12:29 e-Cigarette/Vaping Use Never Used 11/13/24 12:29 Thrive Assessment: Date of Thrive Assessment Date Thrive assessed 04/08/24 11/13/24 12:29 Currently or been in a relationship where the following occur: No concerns reported Telehealth Telehealth Telehealth Platform: Telephone Location of provider rendering services: practice address Location of patient: address on file Patient Identification confirmed using: Name, : Yes Telehealth method: voice only Patient verbally consented to treatment: Yes Patient verbally consented to billing insurance company: Yes Patient informed of any privacy concerns related to visit: Yes Minutes spent on Phone/Video with Pt.: 6 Coding Level of Care Code Tele Est Pt Level 2 (90833) Diagnoses Palpitations R00.2 Hypothyroidism (acquired) E03.9 Assessment & Plan Assessment & Plan (1) Palpitations: Code(s): R00.2 - Palpitations Category: Medical Plan: Workup by Cardiology including EKG, Holter monitor test and echo were unremarkable. Patient was reassured. She notes that she has minimal symptoms now. Also, she did not tolerate metoprolol as it was causing low blood pressures. She is no taking this. She can follow-up with Cardiology prn or return to this office as needed. (2) Hypothyroidism (acquired): Code(s): E03.9 - Hypothyroidism, unspecified Category: Medical Plan: Taking levothyroxine 137 mcg daily. Most recent labs show that her thyroid hormone levels are within range Continue current medication regimen Orders: Orders Comprehensive [place]. Panel Fast Today Z00.00 - Encounter for general adult medical examination without abnormal findings Lipid Panel Today Z00.00 - Encounter for general adult medical examination without abnormal findings UA CC w/rflx Micro + Cult Today Z00.00 - Encounter for general adult medical examination without abnormal findings Triiodothyronine T3 Total Today E03.9 - Hypothyroidism, unspecified Hemoglobin A1c Today R73.01 - Impaired fasting glucose Complete Blood Count Auto Diff Today Z00.00 - Encounter for general adult medical examination without abnormal findings Microalbumin, Random (w Creat) Today I10 - Essential (primary) hypertension Free T4 (Free Thyroxine) Today E03.9 - Hypothyroidism, unspecified Thyroid Stimulating Hormone Today E03.9 - Hypothyroidism, unspecified
== END 2024-11-13 16:34 | disposition home or self-care (01) ==
LOC: HO.HMCFM 12:30
PROVIDERS: PCP Family Medicine; Visit Provider Family Medicine
DX: R00.2 Palpitations (principal); E03.9 Hypothyroidism, unspecified

== ENCOUNTER 2024-12-01 13:03 | Outpatient (AMB) | payer OTHER, SELFPAY ==
--- NOTE | 2024-12-01 13:06 | MHC.PC.OV ---
Vital Signs 12/01/24 13:11 Height 5 ft 5 in Weight 199 lb 5 oz BMI 33.2 BP 118/70 Blood Pressure Location Rt brachial Position Sitting Respiration 12 Pulse 82 Pulse Source Pulse Oximeter Temp 97.2 F Temp Source Oral Pulse Oximetry (%) 99 Oxygen Delivery Method Room Air Intake Visit Reasons: Physical / Dr. Urrutia PtEdgard Intake Note: CPE. Patiet requesting referral for dermatology. Cornetist Required: No Allergies sulfasalazine Allergy (Intermediate, Verified 12/01/24 13:29) Confusion codeine Allergy (Unknown, Verified 12/01/24 13:29) Unknown Medication List - Last Reconciled 12/01/24 by Rosibel Joseph, SECURITIES COUNSELOR- albuterol sulfate 90 mcg/actuation 2 puffs inhalation Q6H PRN betamethasone dipropionate 0.05% 1 appl topical BID PRN 14 days celecoxib (Celebrex) 200 mg PO BID cholecalciferol (vitamin D3) 1,250 mcg (25 x 50 mcg (2,000 unit)) PO DAILY 30 days docusate sodium (Colace) 100 mg PO BID PRN famotidine (Pepcid) 20 mg PO BEDTIME ferrous sulfate 325 mg PO DAILY folic acid 1 mg PO DAILY 90 days levothyroxine 137 mcg PO DAILY 30 days methotrexate sodium 25 mg PO QWEEK peg 3350-electrolytes 236-22.74-6.74 -5.86 gram (Golytely) 240 mL PO Q10M 1 day tofacitinib ER (Xeljanz XR) 11 mg PO DAILY Tobacco use date assessed: 12/01/24 Dental Screening Dental Screen Date: 12/01/24 Did you have a dental visit in the last 12 months?: Yes Did you have a dental problem in the last 6 months where you did not have access to dental care?: No Was dental information given to patient?: Patient has dentist HPI HPI Comments History of Present Illness Details 49 y/o F with obesity (BMI 33), obstructive sleep apnea, anemia, rheumatoid arthritis, hypothyroidism, hyperlipidemia, vitamin D deficiency, and chronic tobacco use for 35 years. Health Maintenance Tdap 2017 Mammo 10/2023, will schedule DEXA: still getting periods, has IUD Pap 01/2024 Colon DUE cologaurd ordered Growth back of L thigh wants removed History of Present Illness - The patient is a 49-year-old female presenting for a complete physical examination. - History includes obesity (BMI 33), obstructive sleep apnea, rheumatoid arthritis, hypothyroidism, hyperlipidemia, vitamin D deficiency, and chronic tobacco use for 35 years. - Reports growth on the posterior left thigh, developed a few months ago, rapid increase in size. Saw [facility] in past, would like referral there. Also has a growth on r cheek near nose that she wants looked at. - Presenting with abnormal uterine bleeding ongoing, active w/ [employer]ER on IUD, cont to bleed. + anemia. On Iron. - Visual disturbances include difficulty reading and black spots. Was using [place]. Requesting referral to [facility] for updated exam - History of bronchitis several weeks ago; feels like someone pressing on her back and shoulders since this time. + smoker, interested in lung ca screening program. - RA managed by specialist - Vit d def was not able to get her Vit d filled; has been w/o. Vit d wnl 07/2024 Physical Exam General: Well developed, well nourished, in no acute distress. Appears stated age. Obesity with a BMI of 33 noted. Head: Normocephalic, atraumatic. Eyes: Pupils are equal, round and reactive to light and accommodation. Conjunctivae are clear. Vision grossly normal Ears: TMs clear AU, EACS WNL Nose: Patent, without discharge. Neck: Supple, no adenopathy or thyromegaly. Breast: Edu on SBE Lungs: Clear to auscultation bilaterally. No rales, rhonchi or wheeze noted. Good air flow in all espino. Heart: Regular rate and rhythm. No murmurs, click, rubs or gallops are noted. Abdomen: Bowel sounds present in all quadrants. The abdomen is soft, nontender, with no masses or organomegaly noted. No hernias are noted. : Deferred. Reviewed recommendations for routine [employer]ER Pulses: Peripheral pulses are equal and palpable bilaterally. Extremities: No clubbing, cyanosis nor edema is noted. Neurologic: Gait and station normal. Cranial Nerves 2-12 intact. Motor strength grossly symmetrical and intact. No sensory loss. Balance normal. Skin: No rashes, ulcers, or lesions noted. Turgor is good. Skin color is good. Hair and nails are without abnormalities. Psych: Normal eye contact, affect and mood appropriate, and normal interactions. Patient is alert and appropriate to context. Discussion Notes I discussed enrolling the patient in a lung cancer screening program, detailing that it is similar to other screenings like colonoscopy and mammogram. We covered the benefits and procedure of low-dose CAT scan annually or biannually as required with the patient's interest expressed. We reviewed the breast cancer screening protocol, recommending rescheduling on the mammogram, and the Cologuard method. Vitamin D supplementation adjustments were made. The discussion concluded with updates on referrals for dermatologic growth assessment, rheumatologic and cardiologic evaluations, and new ophthalmology consultation for visual disturbances. Patient was given time to ask questions. All questions were answered to their satisfaction. Assessment and Plan 1. Obesity - Continue weight monitoring and management. 2. Hyperlipidemia - Recheck cholesterol levels; possible dietary adjustments. Labs today 3. Rheumatoid Arthritis - Maintain current regimen; continue specialist care. 4. Hypothyroidism - Monitor thyroid levels; adjust medication accordingly. will send refill on med once labs resulted 5. Chronic Tobacco Use - Lung cancer screening enrollment suggested. 6. Bronchitis - offered to check imaging VS wait for lung ca CT she wishes to wait for lung CT made aware if her sx change or worsen, to notify us 7. Growth on Posterior Left Thigh - Refer for dermatological evaluation. - area on R cheek can be looked at too Lenzy 8. Abnormal Uterine Bleeding/Anemia - managed by [employer]ER 9. Visual Disturbance - Scheduled for ophthalmology consultation. [facility] 10. Vitamin D Management - Adjust dosage Patient Instructions - Quit smoking; consider lung cancer screening. - Reschedule mammogram. - Complete Cologuard screening at home. - Evaluate growth on thigh with user experience manager. - Follow dietary adjustments to manage cholesterol. - Monitor and maintain thyroid medication dosage. - RTO 6 mo for routine chronic dz mgmt w/ Dr Chery, sooner PRN Consent Patient was informed and verbally consented to the use of an ambient scribe for clinic note documentation during this visit. An additional 30 minutes was spent addressing the problem(s) noted at todays visit. This includes time spent before the visit reviewing the chart, time spent during the visit, and time spent after the visit on documentation reviewing laboratory results, diagnostic imaging, medications, performing a medically necessary evaluation, counseling on diagnoses, care coordination, ordering appropriate tests, ordering appropriate medications, review of tests performed by other providers, reporting test results with the patient, communication with other healthcare providers. [facility] Medical History (Updated 12/01/24 @ 14:07 [address] Rosibel Joseph [facility]) Anemia Complex cyst of right ovary GERD (gastroesophageal reflux disease) Hyperlipidemia Hypothyroidism (acquired) Low vitamin D level Nocturnal hypoxemia Obstructive sleep apnea Rheumatoid arthritis Upper respiratory infection Surgical History History of lumbar surgery Hx of dilation and curettage Family History Father No problems noted. 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 Cognitive needs: No Hearing needs: No Vision needs: No Female Reproductive History Menstrual Age of Menarche: 11 Questionnaire PHQ-9 Over the last 2 weeks, how often have you been bothered by any of the following problems? 1. Little interest or pleasure in doing things: not at all 2. Feeling down, depressed, or hopeless: not at all 3. Trouble falling or staying asleep, or sleeping too much: not at all 4. Feeling tired or having little energy: nearly every day 5. Poor appetite or overeating: not at all 6. Feeling bad about yourself - or that you are a failure or have let yourself or your family down: not at all 7. Trouble concentrating on things, such as reading the newspaper or watching television: several days 8. Moving or speaking so slowly that other people could have noticed. Or the opposite - being so fidgety or restless that you have been moving around a lot more than usual: not at all 9. Thoughts that you would be better off or of hurting yourself in some way: not at all Total score: 4 Depression Screening Interpretation: Negative Depression Screening Done: Yes 55771 - PHQ-9 Billing: Yes Source: Developed by Drs. Anoop Osorio, Marivel Parra, Valeriano Kay and colleagues, with an educational butch from [employer]. Thrive Questionnaire Date Thrive assessed: 12/01/24 I am a: Patient What is your living situation today?: I have a steady place to live Within the past 12 months, did the food you bought not last and you didn't have the money to get more?: Never true Within the past 12 months, did you worry whether your food would run out before you got money to buy more?: Never true Do you have trouble paying for medicines?: No Do you have trouble getting transportation to medical appointments?: No Do you have trouble paying your heating and electricity bill?: No Do you have trouble taking care of your child, family member or friend?: No Do you have trouble with day-to-day activities such as bathing, preparing meals, shopping, managing finances, etc.?: No Are you currently unemployed and looking for a job?: No Are you interested in more education?: No Please select the resources that you would like help with: None Currently or been in a relationship where the following occur: No concerns reported THRIVE Score: 0 AUDIT C Alcohol Use Questionnaire (AUDIT-C) 1. How often do you have a drink containing alcohol?: Never 3. How often do you have six or more drinks on one occasion?: Never Total Score: 0 Score Reviewed/Action Taken: Yes LANDRY-7 AMB Questionnaire LANDRY-7 Date LANDRY - 7 assessed: 12/01/24 Feeling nervous, anxious, or on edge: 2 = More than half the days Not being able to stop or control worryin = Not at all Worrying too much about different things: 0 = Not at all Trouble relaxin = Nearly every day Being so restless that it is hard to sit still: 2 = More than half the days Becoming easily annoyed or irritable: 2 = More than half the days Feeling afraid as if something awful might happen: 0 = Not at all Total LANDRY-7 score (0-4 normal; 5-9 mild; 10-14 moderate; 15-21 severe): 9 Source: Developed by Drs. Anoop LMarivel Harris Kurt Kroenke and colleagues, with an educational butch from [employer]. LANDRY-7 Assessment Billing LANDRY-7 Assessment Tool: LANDRY-7 Assessment 42789 ACT Questionnaire In the past 4 weeks, how much of the time did your asthma keep you from getting as much done at work, school or at home?: None of the time During the past 4 weeks, how often have you had shortness of breath?: Not at all During the past 4 weeks, how often did your asthma symptoms wake you up at night or earlier than usual in the morning?: Not at all During the past 4 weeks, how often have you had to use your rescue inhaler or nebulizer medication?: Not at all How would you rate your asthma control during the past 4 weeks?: Completely controlled ACT Interpretation: Negative Score: 25 Physical exam (Primary Care) Vital Signs: Last Vital Signs Temp 97.2 F 12/01/24 13:11 Pulse 82 12/01/24 13:11 Resp 12 12/01/24 13:11 BP 118/70 12/01/24 13:11 Pulse Ox 99 12/01/24 13:11 Oxygen Delivery Method Room Air 12/01/24 13:11 BMI result Body Mass Index 33.2 BMI Assessment/Plan discussion: High BMI High, discussed plan: lifestyle Tobacco/Smoking Status: Tobacco use Status Tobacco use date assessed 12/01/24 12/01/24 13:09 Patient Tobacco Use Status Current everyday Tobacco 12/01/24 13:09 e-Cigarette/Vaping Use Never Used 12/01/24 13:09 PHQ-9: PHQ-9 Score PHQ-9: Total score 4 12/01/24 13:28 Depression Screening Interpretation: Negative Thrive Assessment: Date of Thrive Assessment Date Thrive assessed 12/01/24 12/01/24 13:09 Currently or been in a relationship where the following occur: No concerns reported Coding Level of Care Code Est Pt Level 4 (01913) Est Pt Prev Care 40-64y(81477) Diagnoses Adult general medical exam Z00.00 Obesity (BMI 30-39.9) E66.9 Tobacco abuse Z72.0 Skin lesion L98.9 Blurred vision, bilateral H53.8 Mixed hyperlipidemia E78.2 Hyperlipidemia type: mixed hyperlipidemia Hypothyroidism (acquired) E03.9 Low vitamin D level R79.89 Screen for colon cancer Z12.11 Rheumatoid arthritis of other site, unspecified whether rheumatoid factor present M06.9 Rheumatoid arthritis location: other site Rheumatoid factor presence: unspecified presence Iron deficiency anemia due to chronic blood loss D50.0 Anemia type: iron deficiency Iron deficiency anemia type: chronic blood loss Additional Codes Asthma Control Questionnaire - ACT Interpretation: Negative ([id number]) LANDRY-7 Assessment Billing - LANDRY-7 Assessment Tool: LANDRY-7 Assessment 58470 ([id number]) PHQ-9 - 53630 - PHQ-9 Billing: Yes ([id number]) Assessment & Plan Assessment & Plan (1) Adult general medical exam: Onset Date: ~12/01/24 Code(s): Z00.00 - Encounter for general adult medical examination without abnormal findings Category: Medical (2) Obesity (BMI 30-39.9): Code(s): E66.9 - Obesity, unspecified Category: Medical (3) Tobacco abuse: Comment: smokes 1 PPD x 35 years Code(s): Z72.0 - Tobacco use Category: Medical (4) Skin lesion: Comment: posterior L thigh Right cheek near nose Code(s): L98.9 - Disorder of the skin and subcutaneous tissue, unspecified Category: Medical (5) Blurred vision, bilateral: Comment: refer to [facility] Code(s): H53.8 - Other visual disturbances Category: Medical (6) Hyperlipidemia: Code(s): E78.5 - Hyperlipidemia, unspecified Category: Medical Qualifiers: Hyperlipidemia type: mixed hyperlipidemia Qualified Code(s): E78.2 - Mixed hyperlipidemia (7) Hypothyroidism (acquired): Code(s): E03.9 - Hypothyroidism, unspecified Category: Medical (8) Low vitamin D level: Code(s): R79.89 - Other specified abnormal findings of blood chemistry Category: Medical (9) Screen for colon cancer: Code(s): Z12.11 - Encounter for screening for malignant neoplasm of colon Category: Medical (10) Rheumatoid arthritis: Code(s): M06.9 - Rheumatoid arthritis, unspecified Category: Medical Qualifiers: Rheumatoid arthritis location: other site Rheumatoid factor presence: unspecified presence Qualified Code(s): M06.9 - Rheumatoid arthritis, unspecified (11) Anemia: Code(s): D64.9 - Anemia, unspecified Category: Medical Qualifiers: Anemia type: iron deficiency Iron deficiency anemia type: chronic blood loss Qualified Code(s): D50.0 - Iron deficiency anemia secondary to blood loss (chronic) Plan . Orders: Referrals Lung Cancer Screening Referral Z72.0 - Tobacco use Cologuard Test Z12.11 - Encounter for screening for malignant neoplasm of colon, Z12.12 - Encounter for screening for malignant neoplasm of rectum Dermatology Referral L98.9 - Disorder of the skin and subcutaneous tissue, unspecified Ophthalmology Referral H53.8 - Other visual disturbances Medications: New cholecalciferol (vitamin D3) 25 mcg PO DAILY 90 caps 2RF Discontinued cholecalciferol (vitamin D3) Discontinued Reason: Insurance Denied 1,250 mcg (25 x 50 mcg (2,000 unit)) PO DAILY 30 days 30 caps 3RF Patient Instructions: Health screenings for women You should visit your health care provider from time to time, even if you are healthy. The purpose of these visits is to: Screen for medical issues Assess your risk for future medical problems Encourage a healthy lifestyle Update vaccinations and other preventive care services Help you get to know your provider in case of an illness Information Even if you feel fine, you should still see your provider for regular checkups. These visits can help you avoid problems in the future. For example, the only way to find out if you have high blood pressure is to have it checked regularly. High blood sugar and high cholesterol levels also may not have any symptoms in the early stages. A simple blood test can check for these conditions. There are specific times when you should see your provider or receive specific health screenings. The [place] Preventive Services Task Force publishes a list of recommended screenings. Below are screening guidelines for women ages 18 to 39. BLOOD PRESSURE SCREENING Your blood pressure should be checked at least once every 3 to 5 years if: Your blood pressure is in the normal range (top number less than 120 mm Hg and bottom number less than 80 mm Hg) You don't have risk factors for high blood pressure Ask your provider if you need your blood pressure checked more often if: The top number is 120 to 129 mm Hg or the bottom number is 70 to 79 mm Hg You have diabetes, heart disease, kidney problems, are overweight, or have certain other health conditions You have a first-degree relative with high blood pressure You are Black You had high blood pressure during a If the top number is 130 mm Hg or greater or the bottom number is 80 mm Hg or greater, this is considered stage 1 hypertension. Schedule an appointment with your provider to learn how you can reduce your blood pressure. Watch for blood pressure screenings in your area. Ask your provider if you can stop in to have your blood pressure checked. BREAST CANCER SCREENING Experts do not agree about the benefits of breast self-exams in finding breast cancer or saving lives. Talk to your provider about what is best for you. A screening mammogram is not recommended for most women under age 40. Your provider may discuss and recommend mammograms, MRI scans, or ultrasounds if you have an increased risk for breast cancer, such as: A mother or sister who had breast cancer at a young age (most often starting screening earlier than the age the close relative was diagnosed) You carry a high-risk genetic marker CERVICAL CANCER SCREENING Cervical cancer screening should start at age 21 years unless your provider advises otherwise. After the first test: Women ages 21 through 29 should have a Pap test every 3 years. Exoprts do not agree on whether HPV testing is recommended for this age group. Women ages 30 through 65 should be screened with either a Pap test every 3 years or the HPV test every 5 years or both tests every 5 years (called cotesting ). Women who have been treated for precancer (cervical dysplasia) should continue to have Pap tests for 20 years after treatment or until age 65, whichever is longer. If you have had your uterus and cervix removed (total hysterectomy), and you have not been diagnosed with cervical cancer or precancer (high grade cervical neoplasia), you do not need cervical cancer screening. CHOLESTEROL SCREENING Cholesterol screening should begin at: Age 45 for women with no known risk factors for coronary heart disease Age 20 for women with known risk factors for coronary heart disease Repeat cholesterol screening should take place: Every 5 years for women with normal cholesterol levels More often if changes occur in lifestyle (including weight gain and diet) More often if you have diabetes, heart disease, kidney problems, or certain other conditions DIABETES SCREENING You should be screened for diabetes starting at age 35 and then repeated every 3 years if you have no risk factors for diabetes. Screening may need to start earlier and be repeated more often if you have other risk factors for diabetes, such as: You have a first degree relative with diabetes. You are overweight or have obesity. You have high blood pressure, prediabetes, or a history of heart disease. Screening for diabetes should be done if you are planning to become and you are overweight and have other risk factors such as high blood pressure. DENTAL EXAM Go to the dentist once or twice every year for an exam and cleaning. Your dentist will evaluate if you need more frequent visits. EYE EXAM Have an eye exam every 5 to 10 years before age 40. If you have vision problems, have an eye exam every 2 years or more often if recommended by your provider. You should have an eye exam that includes an examination of your retina (back of your eye) at least every year if you have diabetes. IMMUNIZATIONS Commonly needed vaccines include: Flu shot: get one every year. COVID-19 vaccine: ask your provider what is best for you. Tetanus-diphtheria and acellular pertussis (Tdap) vaccine: have one at or after age 19 as one of your tetanus-diphtheria vaccines if you did not receive it as an adolescent. Tetanus-diphtheria: have a booster (or Tdap) every 10 years. Varicella vaccine: receive 2 doses if you never had chickenpox or the varicella vaccine. Hepatitis B vaccine: receive 2, 3, or 4 doses, depending on your exact circumstances. Measles, mumps, and rubella (MMR) vaccine: receive 1 to 2 doses if you are not already immune to MMR. Your provider can tell you if you are immune. Ask your provider about the human papillomavirus (HPV) vaccine if: You have not received the HPV vaccine in the past You have not completed the full vaccine series (you should catch up on this shot) Ask your provider if you should receive other immunizations if you have certain health problems that increase your risk for some diseases such as pneumonia. INFECTIOUS DISEASE SCREENING Women who are sexually active should be screened for chlamydia and gonorrhea up until age 25. Women 25 years and older should be screened for chlamydia and gonorrhea if at high risk. Screening for hepatitis C: All adults ages 18 to 79 should get a one-time test for hepatitis C. people should be screened at every . Screening for human immunodeficiency virus (HIV): All people ages 15 to 65 should get a one-time test for HIV. Depending on your lifestyle and medical history, you may also need to be screened for infections such as syphilis and HIV, as well as other infections. PHYSICAL EXAM All adults should visit their provider from time to time, even if they are healthy. The purpose of these visits is to: Screen for disease Assess your risk of future medical problems Encourage a healthy lifestyle Update your vaccinations and other preventive care services Maintain a relationship with a provider in case of an illness Your height, weight, and BMI should be checked at every exam. During your exam, your provider may ask you about: Depression and anxiety Diet and exercise Alcohol and tobacco use Safety issues, such as using seat belts, smoke detectors, and intimate partner violence Your medicines and risk for interactions SKIN SELF-EXAM Your provider may check your skin for signs of skin cancer, especially if you're at high risk, such as if you: Have had skin cancer before Have close relatives with skin cancer Have a weakened immune system OTHER SCREENING Talk with your provider about colon cancer screening if you have a strong family history of colon cancer or polyps, or if you have had inflammatory bowel disease or polyps yourself. Routine bone density screening of women under 40 is not recommended.
[2024-12-01 13:11] VITALS: BP 118/70; PULSE 82; RESP 12; TEMP 36.2; O2SAT 99; BMI 33.2
== END 2024-12-01 13:54 | disposition home or self-care (01) ==
LOC: HO.HMCFM 13:04
PROVIDERS: PCP Family Medicine; Visit Provider Nurse Practitioner Family
DX: Z00.00 Encounter for general adult medical examination without abnormal findings (principal); M06.9 Rheumatoid arthritis, unspecified; E66.9 Obesity, unspecified; Z68.33 Body mass index [BMI] 33.0-33.9, adult; H53.8 Other visual disturbances; E78.2 Mixed hyperlipidemia; L98.9 Disorder of the skin and subcutaneous tissue, unspecified; Z72.0 Tobacco use; E03.9 Hypothyroidism, unspecified; R79.89 Other specified abnormal findings of blood chemistry; Z12.11 Encounter for screening for malignant neoplasm of colon; D50.0 Iron deficiency anemia secondary to blood loss (chronic)

== ENCOUNTER → 2024-12-01 13:03 | Outpatient (BNVA) | payer OTHER, SELFPAY | PROVIDERS: PCP Family Medicine; Visit Provider Nurse Practitioner Family | DX: Z00.00 Encounter for general adult medical examination without abnormal findings (principal); G47.33 Obstructive sleep apnea (adult) (pediatric); E03.9 Hypothyroidism, unspecified; E78.5 Hyperlipidemia, unspecified; E55.9 Vitamin D deficiency, unspecified; F17.210 Nicotine dependence, cigarettes, uncomplicated; E66.9 Obesity, unspecified; J40 Bronchitis, not specified as acute or chronic; H53.8 Other visual disturbances; L98.9 Disorder of the skin and subcutaneous tissue, unspecified; E78.2 Mixed hyperlipidemia; M06.9 Rheumatoid arthritis, unspecified; D50.0 Iron deficiency anemia secondary to blood loss (chronic); R79.89 Other specified abnormal findings of blood chemistry; Z68.33 Body mass index [BMI] 33.0-33.9, adult | CPT/HCPCS: 96127; 96160 ==

== ENCOUNTER 2024-12-01 14:10 | Outpatient (REF) | payer OTHER, SELFPAY ==
[2024-12-01 18:19] LABS: MANUAL DIFF FLAG NO
[2024-12-01 18:20] LABS: Appearance Urine Clear; Glucose Urine UA Negative (Negative); PH 5.5 (5.0-9.0); Specific Gravity - Urine 1.010 (1.005-1.025); UMIC TRIGGER UACC YES
[2024-12-01 18:31] LABS: Hematocrit 37.9 % (37.0-47.0); Hemoglobin 12.7 g/dl (12.0-16.0); Imm Gran Abs Auto 0.02 X10*3/uL (0.00-0.03); Imm Gran Pct Auto 0.3 % (0.0-0.4); Lymphocytes Absolute Auto 1.9 X10*3/uL (1.2-4.9); Mean Corpuscular HGB Conc 33.5 g/dl (31.0-35.0); Mean Corpuscular Hemoglobin 32.0 pg (27.0-33.0); Mean Corpuscular Volume 95.5 fL (80.0-98.0); NRBC Abs Auto 0.000 X10*3/uL (0.0-0.012); NRBC Pct Auto 0.0 /100WBC (0.0-0.2); Platelet Count 338 X10*3/uL (160-400); Red Blood Count 3.97 X10*6/uL (4.20-5.50); White Blood Count 6.5 X10*3/uL (4.8-10.8)
[2024-12-01 18:51] LABS: Alanine Aminotransferase 16 U/L (0-31); Albumin Level 4.4 g/dL (3.5-5.0); Alkaline Phosphatase 73 U/L (39-117); Anion Gap 10 (12-20); Aspartate Amino Transferase 27 U/L (5-31); Blood Urea Nitrogen 12 mg/dL (9-16); Calcium 8.8 mg/dL (8.4-10.2); Carbon Dioxide 24 mmol/L (22-29); Chloride 108 mmol/L (96-108); Cholesterol 229 mg/dL (<200); Estimated Glomerular Filt Rate > 60; HDL Cholesterol 39 mg/dL (>40); Potassium 4.1 mmol/L (3.3-5.1); Sodium 138 mmol/L (135-145); Total Protein 7.0 g/dL (6.5-8.0); Triglycerides 184 mg/dL (<150)
[2024-12-01 19:08] LABS: Free T4 (Free Thyroxine) 1.19 ng/dL (0.71-1.85); Thyroid Stimulating Hormone 1.47 uIU/mL (0.32-4.0)
[2024-12-01 19:36] LABS: Microalbum/Creatinine Ratio Ur 18.6 ug/mg cr (<30)
[2024-12-02 07:09] LABS: Hemoglobin A1C 125.9669 umol/L; Total Hemoglobin (HGBA1C) 3412.3147 umol/L
== END 2024-12-01 14:11 | disposition home or self-care (01) ==
LOC: HO.WFDLDS 14:10
PROVIDERS: Visit Provider Family Medicine
DX: Z00.00 Encounter for general adult medical examination without abnormal findings (principal); E03.9 Hypothyroidism, unspecified; E55.9 Vitamin D deficiency, unspecified; I10 Essential (primary) hypertension; R73.01 Impaired fasting glucose
CPT/HCPCS: 36415; 80053; 80061; 81001; 82043; 82306; 82570; 83036; 84439; 84443; 84480; 85025

== ENCOUNTER 2024-12-03 10:50 | Outpatient (AMB) | payer OTHER, SELFPAY ==
--- NOTE | 2024-12-03 11:06 | MHC.OFFVIS ---
Vital Signs 12/03/24 11:07 Height 5 ft 5 in Weight 198 lb 6 oz BMI 33.0 BP 110/74 Blood Pressure Location Rt brachial Position Sitting Pulse 83 Pulse Source Pulse Oximeter Pulse Oximetry (%) 96 Oxygen Delivery Method Room Air Intake Visit Reasons: follow up Intake Note: Patient presents follow up Hypersomnolence. Titration in chart(Trialed on 4-6cm. Stabilized at 9cm(was unable to tolerate). Returning CPAP not using Allergies sulfasalazine Allergy (Intermediate, Verified 12/03/24 11:17) Confusion codeine Allergy (Unknown, Verified 12/03/24 11:17) Unknown HPI Comments Details: Right handed 49-yr-old female presents for f/u visit for fatigue and home sleep test. Her helps with history today. PMH she continues to have PACs, she is being followed by cardiology. Labs reviewed with patient today Thyroid is w/in normal levels, Vitamin D is normal. 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 She thought this was due to having her children, not treating her hypothyroidism, and having a busy lifestyle. She has to stay active and busy to avoid falling asleep even when in meetings or talking with someone. She does use strategies to stay awake while inactive- tapping her foot, drinking caffeine, playing music. Recently her family/friends have told her she snores loudly during sleep, and gasps for air. She denies parasomnias, headaches and RLS symptoms, cramps, burning pain, paresthesias. She is a 1 pack per day smoker. Smoking cessation is offered. Sleep Study 11/2023, The study is significant for a mild degree of sleep apnea with increased REM sleep AHI HST c/w AHI 11, REM AHI was 40/hr and Oxygen Rc 80%. Will schedule for titration study to determine ideal pressures. Patient is claustrophobic and interested in ENT evaluation for Inspire Therapy. BMI is 33, will refer her to [facility] for evaluation and DISE procedure. AHI, BMI, CPAP failure, and DISE report. Significant patient education is provided re sleep apnea and severity of complications vs benefits of using the cpap as well as alleviation of symptoms of fatigue and irritable mood. [facility] Medical History Upper respiratory infection Complex cyst of right ovary Nocturnal hypoxemia Obstructive sleep apnea Hyperlipidemia Low vitamin D level Anemia GERD (gastroesophageal reflux disease) Rheumatoid arthritis Hypothyroidism (acquired) Surgical History Hx of dilation and curettage History of lumbar surgery Family History Father No problems noted. 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 Cognitive needs: No Hearing needs: No Vision needs: No Female Reproductive History Menstrual Age of Menarche: 11 Physical Exam Vital Signs: Last Vital Signs Pulse 83 12/03/24 11:07 BP 110/74 12/03/24 11:07 Pulse Ox 96 12/03/24 11:07 Oxygen Delivery Method Room Air 12/03/24 11:07 BMI result Body Mass Index 33.0 Const General: cooperative, comfortable and no acute distress Nutritional Appearance: average body habitus and obese Orientation/consciousness: patient oriented x3 HEENT Face and sinus: Yes face symmetric Throat: Yes other (mallampti score is 3) Eyes Pupils: Equal, round and reactive pupils present Neck Neck: Yes full ROM Resp Effort & Inspection: normal respiratory effort and able to speak in complete sentences Neuro General: patient oriented x3 and moves all extremities Cranial nerves: Yes Equal, round and reactive pupils present, Yes Normal accommodation reflex present, Yes Normal facial strength present, Yes Midline tongue present, Yes Ability to bilaterally rotate head present and Yes Ability to bilaterally elevate shoulders present Cognition (Neuro): normal cognition Gait exam (Neuro): Normal gait present Motor exam (neuro): 5/5 motor strength present throughout and Normal motor muscle tone present throughout Psych Appearance: grossly normal Thought process: Normal thought process present Assessment & Plan Assessment & Plan (1) Obstructive sleep apnea: Code(s): G47.33 - Obstructive sleep apnea (adult) (pediatric) Category: Medical (2) Excessive daytime sleepiness: Code(s): G47.19 - Other hypersomnia Category: Medical Plan SHARI cpap use is emphasized and >4 hours daily, gradually start while watching tv for 2 hours and increase use as tolerable. - significant patient education re: risk vs benefits of therapy and stages of sleep in relationship to hormonal fluctuations. Referral to ENT evaluation for Inspire therapy and DISE procedure. Labs to r/o deficiencies Orders: Orders Ferritin Today G47.19 - Other hypersomnia Hemoglobin A1c Today G47.19 - Other hypersomnia Homocysteine Today G47.19 - Other hypersomnia, G47.9 - Sleep disorder, unspecified, R53.83 - Other fatigue Methylmalonic Acid Today G47.19 - Other hypersomnia, G47.9 - Sleep disorder, unspecified, R53.83 - Other fatigue Vitamin D 25-OH Total Today G47.19 - Other hypersomnia Vitamin B12 and Folate Today G47.19 - Other hypersomnia Referrals Ear/Nose/Throat Referral G47.19 - Other hypersomnia, G47.33 - Obstructive sleep apnea (adult) (pediatric) Patient Instructions: Sleep Hygiene provided: set a scheduled bedtime and wake time to help regulate the circadian rhythm and balance the release of pituitary hormones. Sleep in a dark room, temperatures below 68 degrees, and no devices n bed. Limit caffeinated products 6 hours prior to bed, and limit fluids 2-4 hours prior to bed. Gentle night yoga, diffusing essential oils, and playing soft music can be relaxing. Labs to r/o deficiencies SHARI continue cpap use and >4 hours and monitor for compliance DISE procedure for inspire therapy [facility] [place] Coding Level of Care Code Est Pt Level 4 (82695) Diagnoses Obstructive sleep apnea G47.33 Excessive daytime sleepiness G47.19
[2024-12-03 11:07] VITALS: BP 110/74; PULSE 83; O2SAT 96; BMI 33.0
== END 2024-12-03 11:42 | disposition home or self-care (01) ==
LOC: HO.HSMS 10:51
PROVIDERS: PCP Family Medicine; Visit Provider Physician Assistant Medical
DX: G47.33 Obstructive sleep apnea (adult) (pediatric) (principal); G47.19 Other hypersomnia
CPT/HCPCS: 99214

== ENCOUNTER 2024-12-09 11:26 | Outpatient (REF) | payer OTHER, SELFPAY ==
[2024-12-09 12:32] LABS: Hematocrit 35.6 % (37.0-47.0); Hemoglobin 12.6 g/dl (12.0-16.0); Mean Corpuscular HGB Conc 35.4 g/dl (31.0-35.0); Mean Corpuscular Hemoglobin 33.0 pg (27.0-33.0); Mean Corpuscular Volume 93.2 fL (80.0-98.0); NRBC Abs Auto 0.000 X10*3/uL (0.0-0.012); NRBC Pct Auto 0.0 /100WBC (0.0-0.2); Platelet Count 338 X10*3/uL (160-400); Red Blood Count 3.82 X10*6/uL (4.20-5.50); White Blood Count 7.5 X10*3/uL (4.8-10.8)
[2024-12-09 21:53] LABS: CT PCR NOT DETECTED (Not Detect.); NG PCR NOT DETECTED (Not Detect.)
== END 2024-12-09 11:27 | disposition home or self-care (01) ==
LOC: HO.LAB 11:26
PROVIDERS: PCP Family Medicine; Visit Provider Obstetrics & Gynecology
DX: N87.1 Moderate cervical dysplasia (principal); N93.9 Abnormal uterine and vaginal bleeding, unspecified; Z97.5 Presence of (intrauterine) contraceptive device; Z32.02 Encounter for pregnancy test, result negative
CPT/HCPCS: 36415; 57454; 84443; 84702; 85027; 87491; 87591; 87626; 88175

== ENCOUNTER 2024-12-09 11:26 | Outpatient (AMB) | payer OTHER, SELFPAY ==
--- NOTE | 2024-12-09 11:32 | A.OFFVIS_ITS ---
Vital Signs 12/09/24 11:34 Height 5 ft 5 in Weight 198 lb BMI 32.9 Intake Visit Reasons: cotest/colpo Local Delivery Driver Required: No Information Interpreted: non-clinical & clinical Gas Examiner: Gas Examiner Present (Kim VIVAS) Accompanied by: Self / Same As Patient Allergies sulfasalazine Allergy (Intermediate, Verified 12/09/24 11:35) Confusion codeine Allergy (Unknown, Verified 12/09/24 11:35) Unknown HPI Comments Details: Presenting for six-month co testing/colposcopy complaining of continuous vaginal spotting since IUD insertion. The patient had ascus/HPV positive followed by colpo biopsy in 04/21 which showed LETY 2, this was followed by LEEP cone with post cone ECC with negative residual pathology [facility] Medical History (Updated 12/09/24 @ 12:04 by Rc Vo MD) LETY II (cervical intraepithelial neoplasia II) Upper respiratory infection Complex cyst of right ovary Nocturnal hypoxemia Obstructive sleep apnea Hyperlipidemia Low vitamin D level Anemia GERD (gastroesophageal reflux disease) Rheumatoid arthritis Hypothyroidism (acquired) Surgical History Hx of dilation and curettage History of lumbar surgery Family History Father No problems noted. 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 Cognitive needs: No Hearing needs: No Vision needs: No Female Reproductive History Menstrual Age of Menarche: 11 Review of Systems Const All systems reviewed & are unremarkable except as noted in HPI and below Physical Exam Vital Signs: BMI result Body Mass Index 32.9 General: Yes no CVA tenderness External Female Exam: normal external appearance and normal appearance of the urethra Speculum Exam - Vagina: normal appearance of the vagina, normal palpation, no lesions and no masses Speculum Exam - Cervix: normal appearance of the cervix, normal palpation, no lesions, no masses, nontender and Other cervical findings present (IUD string in place) Bimanual exam- vagina & uterus: normal bimanual exam, normal palpation, uterine size normal, normal palpation, uterine shape normal, No Cervical tenderness present and non-tender Bimanual Exam- Adnexa, other: normal adnexae Back/Spine/Pelvis Back: no CVA tenderness Office Procedures Colposcopy Colposcopy: Pre-Procedure Counseling: Before beginning the procedure, I conducted comprehensive counseling with the patient. We thoroughly discussed the procedure itself, including its details, alternatives, and all associated risks. This included but not limited to the following complications such as bleeding, infection, and injury to the vagina, bladder, and vessels, as well as the potential need for transfusion with all its associated risks. Subsequently, the patient sign the consent. Pap smear result: 04/21 ascus HPV positive , colpo biopsy ECC LETY 2, 05/23 LEEP cone with post cone ECC negative pathology Urine test in office = Negative Procedure: During the procedure, the following steps were performed: A speculum was inserted, and acetic acid was applied. Colposcopy was conducted, allowing visualization of the transformation zone. Acetowhite lesions were identified at the 6+ 1+3 o'clock position. Cervical biopsies were obtained from the 6+ 1+3 o'clock position, followed by an endocervical curettage (ECC). Vaginoscopy of the upper vagina revealed no evidence of aceto-white lesions. Hemostasis was achieved using Monsel solution, and the patient tolerated the procedure well. Post-Procedure Instructions: The patient was advised to promptly contact the office or the after hours answering service or go to the emergency room if experiencing a temperature exceeding 100.4?F, abdominal pain, nausea/vomiting, or bleeding. Additionally, the patient was instructed to abstain from vaginal intercourse and bathtub use. The patient confirmed understanding of these instructions. Discharge Instructions: The patient was instructed to schedule a follow-up appointment in 2 weeks for further evaluation and management. Please note that this note was generated using a voice recognition program, and errors may have occurred during veterinary pharmacologist. Procedure code (CPT) selection complete Endometrial Biopsy Details: The patient was counseled regarding the indication and benefits of endometrial sampling to rule out endometrial pathology including not limited to endometrial hyperplasia or endometrial cancer and others; The alternatives (Either do nothing vs. hysteroscopy D&C) & the risks were discussed with the patient including but not limited: pain, uterine perforation, bleeding, infection, possible injury to bladder, bowel, ureter, possible need for blood transfusion with all its possible risks. The patient verbalized understanding all questions answered and signed consent. Urine test done in the office was negative The patient was placed into the dorsal lithotomy position; a speculum was inserted in the vagina. Using aseptic technique for the procedure, the cervix was cleansed with Betadine. The anterior lip of the cervix was grasped with a single tooth tenaculum. The uterus was sounded to 7 cm with a 4 mm Pipelle was used. Tissues samples were obtained and placed in formalin, in a patient labeled container and sent to the pathology department. At the end of the procedure, there was minimal bleeding noted The patient tolerated the procedure well and was discharged in good condition with the following instructions: Nothing in the vagina until the bleeding stops. No sex until the bleeding stops, to call if any of the following occurs: fever (>100.4), flu-like symptoms, abdominal pain, heavy bleeding, four smelling vaginal discharge. The patient was instructed to schedule a Follow up appointment in 2 weeks to discuss pathology results of the biopsy and treatment options. This note was generated with a voice recognition program. Some errors may have been overlooked during the review of this note. Sometimes these errors may affect the content or meaning of a given sentence. [id number] Biopsy Assessment & Plan Assessment & Plan (1) Abnormal uterine bleeding (AUB): Comment: On Mirena IUD Code(s): N93.9 - Abnormal uterine and vaginal bleeding, unspecified Category: Medical Plan: Screening mammogram, Co testing done, GC and chlamydia taken CBC, TSH, HCG, and pelvic ultrasound ordered. Discussed with the patient the different causes of abnormal bleeding including thyroid disorders, uterine and ovarian pathology, endometrial hyperplasia, carcinoma and other potential causes. Discussed with the patient the work up including CBC (to r/o anemia), TSH, pelvic Ultrasound, endometrial biopsy to r/o endometrial pathology. EMB done, see procedure note. All questions answered, the patient verbalized understanding. Instructions given the patient to schedule a 2 week follow-up appointment (2) LETY II (cervical intraepithelial neoplasia II): Comment: 04/21 ascus HPV positive colpo biopsy LETY 2 05/23 Status post LEEP cone with post cone ECC with negative residual pathology Code(s): N87.1 - Moderate cervical dysplasia Category: Medical Plan: Co testing was colposcopy done. Instructions given to patient to schedule a 2 week follow-up appointment Orders: Orders AMB Colposcopy Today N87.1 - Moderate cervical dysplasia TSH reflex Free T4 Today N93.9 - Abnormal uterine and vaginal bleeding, unspecified Complete Blood Count no Diff Today N93.9 - Abnormal uterine and vaginal ble eding, unspecified MM screening mammo BI Today Z12.31 - Encounter for screening mammogram for malignant neoplasm of breast AMB Endometrial Biopsy Today N93.9 - Abnormal uterine and vaginal bleeding, unspecified HCG Quantitative Today N93.9 - Abnormal uterine and vaginal bleeding, unspecified US pelvic and transvaginal Today N93.9 - Abnormal uterine and vaginal bleeding, unspecified Coding Level of Care Code Est Pt Level 3 (55390) Procedure Only Diagnoses Abnormal uterine bleeding (AUB) N93.9 LETY II (cervical intraepithelial neoplasia II) N87.1 CPT Codes Endometrial Biopsy - CPT: 24179-[id number] Biopsy ([id number])
[2024-12-09 11:34] VITALS: BMI 32.9
--- OUTSIDE RECORDS SUMMARY | 2024-12-09 12:26 | XMS_ITS | Encounter Summary ---
Author Organization [facility] Address [address] [place] [id number] Care Team Providers Care Bass Guitar Teacher Name Role Phone Unavailable Primary Care Provider Unavailabl e Reason for Referral * ENT (Routine) - Pending Review Specialty Diagnoses / Procedures Referred By Contac t Referred To Contact Otolaryngology Diagnoses Obstructive sleep apnea (adult) (pediatric) Other hypersomnia [facility] [address] [place] [address] Phone: tel: fax: Referral ID Status Reason Start Date Expiration Date Visits Requested Visits Authorized [id number] Pending Review Consult 12/09/2024 12/10/2025 1 1 Encounter Details Date Type Department Care Team (Late st Contact Info) Description 12/09/2024 Transcribe Orders [facility] System, Provider Not In Obstructive sleep apnea (adult) (pediatric) (Primary Dx); Other hypersomnia Social History Tobacco Use Types Packs/Day Years Used Date Smoking Tobacco: Never Assessed Comments Unknown Sex and Gender Information Value Date Recorded Sex Assigned at Not on file Legal Sex Female 12:09 PM EDT Gender Identity Not on file Sexual Orientation Not on file documented as of this encounter Plan of Treatment Scheduled Referrals Name Type Priority Associated Diagnoses Orde r Schedule Ambulatory referral to ENT Outpatient Referral Routine Obstructive sleep apnea (adult) (pediatric) Other hypersomnia Ordered: 12/09/2024 documented as of this encounter Visit Diagnoses Diagnosis Obstructive sleep apnea (adult) (pediatric)- Primary Other hypersomnia documented in this encounter
== END 2024-12-09 12:22 | disposition home or self-care (01) ==
LOC: HO.HWS 11:27
PROVIDERS: PCP Family Medicine; Visit Provider Obstetrics & Gynecology
DX: N93.9 Abnormal uterine and vaginal bleeding, unspecified (principal); N87.1 Moderate cervical dysplasia
CPT/HCPCS: 57454; 99213

== ENCOUNTER 2024-12-09 12:14 | Outpatient (REF) | payer OTHER, SELFPAY | END 2024-12-09 12:15 | disposition home or self-care (01) | LOC: HO.LNP 12:14 | PROVIDERS: Visit Provider Obstetrics & Gynecology | DX: N87.1 Moderate cervical dysplasia (principal); N93.9 Abnormal uterine and vaginal bleeding, unspecified; R87.810 Cervical high risk human papillomavirus (HPV) DNA test positive; Z32.02 Encounter for pregnancy test, result negative | CPT/HCPCS: 88305 ==

== ENCOUNTER 2024-12-16 11:00 | Outpatient (AMB) | payer OTHER, SELFPAY ==
--- NOTE | 2024-12-16 11:00 | A.OFFVIS_ITS ---
Intake Visit Reasons: Colpo results Allergies sulfasalazine Allergy (Intermediate, Verified 12/09/24 11:35) Confusion codeine Allergy (Unknown, Verified 12/09/24 11:35) Unknown HPI Comments Details: The patient is schedule telehealth visit post colpo/ECC with EMB for follow-up. The patient is doing well with no complaints. The following workup was done.: H&H= 12.6/35.6 TSH, hCG, GC and chlamydia were negative. Co testing was done , results still pending Mammogram was done in 11/19 was BI-RADS 2, new mammogram was ordered but not scheduled yet Pelvic ultrasound showed the followin09/17/2024 Uterus: The uterus is normal in size, measuring 9.2 x 5.7 x 6.0 cm. Myometrium demonstrates heterogeneous echotexture. No fibroids are identified. Endometrium: The endometrial stripe measures 6 mm in thickness. An IUD is noted in appropriate position in the endometrial cavity. Right ovary: The right ovary measures 3.0 x 2.5 x 1.4 cm. The right ovary is normal in size and echotexture. Left ovary: The left ovary measures 2.4 x 1.9 x 2.7 cm. The left ovary is normal in size and echotexture. Pelvic fluid: none. US/US pelvic and transvaginal IMPRESSION: Heterogeneous myometrial echotexture. Otherwise unremarkable pelvic ultrasound. IUD in appropriate position in the endometrial cavity. Colpo/biopsy/EMB pathology showed the following: A. Endometrium, biopsy: Inactive endometrium with pseudo-decidualized stroma and necrosis consistent with progestin effect; negative for atypia, hyperplasia or malignancy. B. Endocervix, curettage: Fragments of benign endocervical glands; negative for squamous intraepithelial lesion. C. Cervix, 1 o'clock, biopsy: Squamous mucosa within normal limits; negative for squamous intraepithelial lesion. D. Cervix, 3 o'clock, biopsy: Squamous mucosa within normal limits; no endocervical component seen; negative for squamous intraepithelial lesion. E. Cervix, 6 o'clock, biopsy: Squamous mucosa within normal limits; negative for squamous intraepithelial lesion. COMMENT: Note is made of the patient's history of LEEP excision (S25-54; negative for FOREST) and previous cervical biopsy ([id number] (LETY 2). [facility] Medical History (Updated 12/09/24 @ 12:04 by Rc Vo MD) LETY II (cervical intraepithelial neoplasia II) Upper respiratory infection Complex cyst of right ovary Nocturnal hypoxemia Obstructive sleep apnea Hyperlipidemia Low vitamin D level Anemia GERD (gastroesophageal reflux disease) Rheumatoid arthritis Hypothyroidism (acquired) Surgical History Hx of dilation and curettage History of lumbar surgery Family History Father No problems noted. 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 Cognitive needs: No Hearing needs: No Vision needs: No Female Reproductive History Menstrual Age of Menarche: 11 Review of Systems Const All systems reviewed & are unremarkable except as noted in HPI and below Reports as per HPI and Reports no additional complaints GI Reports no additional complaints Reports no additional complaints Telehealth Telehealth Telehealth Platform: [facility] Location of provider rendering services: practice address Location of patient: address on file Patient Identification confirmed using: Name, : Yes Telehealth method: video Patient verbally consented to treatment: Yes Patient verbally consented to billing insurance company: Yes Patient informed of any privacy concerns related to visit: Yes Minutes spent on Phone/Video with Pt.: 3 Assessment & Plan Assessment & Plan (1) Abnormal uterine bleeding (AUB): Comment: On Mirena IUD Code(s): N93.9 - Abnormal uterine and vaginal bleeding, unspecified Category: Medical Plan: Instructions given the patient to schedule screening mammogram, pelvic ultrasound and a follow-up appointment afterwards. Discussed with the patient the results of the work up done and options of treatment including Lysteda, BCP's, stay on Mirena IUD, endometrial ablation and hysterectomy. All pros, cons, risks and benefits if each option was discussed with the patient and the patient decided to think about it and get back to us. All questions answered the patient verbalized understanding. (2) LETY II (cervical intraepithelial neoplasia II): Comment: 04/21 ascus HPV positive colpo biopsy LETY 2 05/23 Status post LEEP cone with post cone ECC with negative residual pathology Code(s): N87.1 - Moderate cervical dysplasia Category: Medical Plan: Discussed with the patient the results of co testing still pending, in addition discussed with the patient the pathology results of the colposcopy biopsies & endocervical curettage. Discussed with the patient the sensitivity specificity, positive and negative predictive value in detecting cervical cancer in addition discussed the regression, persistence and progression rates. Recommended co- testing in 12 months, if cytology and or HPV are abnormal will proceed was colposcopy biopsy and endocervical curettage. Instructions given to the patient to schedule a co test appointment in 1 year. All questions answered the patient verbalized understanding. I spent a total of 20 minutes reviewing the chart, talking to the patient via video and documenting in the medical record. Coding Level of Care Code Tele Est Pt Level 3 (98655) Diagnoses Abnormal uterine bleeding (AUB) N93.9 LETY II (cervical intraepithelial neoplasia II) N87.1
--- OUTSIDE RECORDS SUMMARY | 2024-12-16 12:22 | XMS_ITS | Encounter Summary ---
Author Organization [facility] Address [address] [place] [address] Care Team Providers Care Elementary Educator Name Role Phone Unavailable Primary Care Provider Unavailabl e Reason for Referral * ENT (Routine) - Pending Review Specialty Diagnoses / Procedures Referred By Contac t Referred To Contact Otolaryngology Diagnoses Obstructive sleep apnea (adult) (pediatric) Other hypersomnia [facility] [place] [facility] [address] [place] [address] Phone: tel: fax: Referral ID Status Reason Start Date Expiration Date Visits Requested Visits Authorized [id number] Pending Review Consult 12/09/2024 12/10/2025 1 1 Encounter Details Date Type Department Care Team (Late st Contact Info) Description 12/09/2024 Transcribe Orders [facility] System, Provider Not In Obstructive [...]
== END 2024-12-16 13:02 | disposition home or self-care (01) ==
LOC: HO.HWS 11:00
PROVIDERS: PCP Family Medicine; Visit Provider Obstetrics & Gynecology
DX: N93.9 Abnormal uterine and vaginal bleeding, unspecified (principal); N87.1 Moderate cervical dysplasia
CPT/HCPCS: 99213

== ENCOUNTER 2025-02-13 21:29 | Emergency (ER) | payer OTHER, SELFPAY ==
--- NOTE | ~2025-02-13 | XR_ITS ---
CLINICAL HISTORY: r knee pain 4 view right knee Comparison: None provided Findings: No fractures or dislocations. No significant arthritic change or erosions. No joint effusion. No radiopaque foreign body. IMPRESSION: 1. No acute findings. This document has been electronically signed by: Jacques Meier MD on 02/13/2025 23:21:28
[2025-02-13 21:44] VITALS: BP 131/70; PULSE 98; RESP 14; TEMP 36.6; O2SAT 97; BMI 34.3
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
--- OUTSIDE RECORDS SUMMARY | 2025-02-14 00:56 | XMS_ITS | Clinical Summary ---
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 Name Role Phone Unavailable Primary Care Provider Unavailabl e Encounters Date Type Department Care Team Description 12/09/2024 Transcribe Orders [facility] NEUROLOGY SCAN System, Provider Not In Obstructive sleep apnea (adult) (pediatric) (Primary Dx); Other hypersomnia from Last 3 Months Social History Tobacco Use Types Packs/Day Years Used Date Smoking Tobacco: Never Assessed Comments Unknown Sex and Gender Information Value Date Recorded Sex Assigned at Not on file Legal Sex Female 12:09 PM EDT Gender Identity Not on file Sexual Orientation Not on file Plan of Treatment Health Maintenance Due Date Last Done Comments Hepatitis C Virus Screening 1975 HIV Screening 08/01/1987 DTaP/Tdap/Td Vaccines (1 - Tdap) 1993 Hepatitis B Vaccines (1 of 3 - 19+ 3-dose series) 07/1993 Pneumococcal Vaccines 50+ (1 of 1 - PCV) 2024 Zoster (Shingles) Vaccine (1 of 2) 2024 COVID-19 Vaccine (1 - 2023- season) 2024
--- OUTSIDE RECORDS SUMMARY | 2025-02-14 00:56 | XMS_ITS ---
Author Name [facility] Organization Unknown Problems Problem Status Onset Date Problem Type Date of Resoluti on Source Other hypersomnia active EncounterDiagnosisAct HHCCT Obstructive sleep apnea (adult) (pediatric) active EncounterDiagnosisAct HHCCT
[2025-02-14 05:57] VITALS: BP 131/70; PULSE 98; RESP 14; TEMP 36.6; O2SAT 97
== END 2025-02-14 01:15 | disposition home or self-care (01) ==
PROVIDERS: Emergency Provider Student in an Organized Health Care Education/Training Program; PCP Family Medicine
DX: S83.91XA Sprain of unspecified site of right knee, initial encounter (principal); Y93.01 Activity, walking, marching and hiking; Y93.L9 Activity, other outdoor activity; Y92.414 Local residential or business street as the place of occurrence of the external cause
CPT/HCPCS: 73562; 99282; 99283

== ENCOUNTER → 2025-02-13 22:20 | Outpatient (BNV) | payer OTHER, SELFPAY | PROVIDERS: Emergency Provider Student in an Organized Health Care Education/Training Program; PCP Family Medicine; Visit Provider Radiology Diagnostic Radiology | DX: M25.561 Pain in right knee (principal) | CPT/HCPCS: 73562 ==

== ENCOUNTER → 2025-02-25 14:53 | Outpatient (REF) | payer OTHER, SELFPAY ==
--- NOTE | 2025-02-25 14:56 | CA_ITS ---
Transthoracic Echocardiogram Patient (Last, First, Middle): Linda Wilson, Gender: Female Date of : 1975 Age: 49 Procedure Date: 02/25/2025 Procedure Type: Transthoracic Echocardiogram Location: OP Height: 165.1 cm Weight: 93.44 kg BSA: 2.00 m2 Heart Rate: 69 bpm BP: 125 / 80 mmHg Sales Team Member: QUIANA Referring MD: Iraj Bartholomew MD Symptoms: R00.2 - Palpitations Study Quality: Adequate ECG Rhythm: Sinus Conclusions: - The left ventricular systolic function is normal. The calculated ejection fraction is 57% by biplane method. - No obvious valvular pathology seen on this study. Findings Left Ventricle Normal left ventricular cavity size. There is normal left ventricular wall thickness. The left ventricular systolic function is normal. The calculated ejection fraction is 57% by biplane method. There is no evidence of regional wall motion abnormalities. Diastolic function is normal for age. Right Ventricle Mildly increased right ventricular cavity size. There is normal right ventricular systolic function. Atria Both atria are normal in size. Aortic Valve There is a normal trileaflet aortic valve. There is no aortic valve stenosis. There is no aortic valve regurgitation. Mitral Valve The mitral valve appears normal. There is no mitral valve regurgitation. There is no mitral valve stenosis. Pulmonic Valve The pulmonic valve is likely normal. Tricuspid Valve There is trace tricuspid valve regurgitation. There is no evidence of pulmonary hypertension. Great Vessels The asc aorta and aortic arch are normal in size. Venous The inferior vena cava is normal in size and collapses greater than 50% with inspiration. Pericardium/Pleural There is a small loculated pericardial effusion overlying the right ventricle. Prior Study Comparison No significant change compared to prior study dated: 03/22/2020. Recommendations, Care & Conclusions No obvious valvular pathology seen on this study. Measurements 2D Linear Measurements IVSd: 0.89 0.6-0.9/0.6-1.0 cm LVIDd: 5.04 3.9-5.3/4.2-5.9 cm LVIDd Index: 2.52 2.4-3.2/2.2-3.1 cm/m2 LVIDs: 2.52 2.0-3.6 cm LVPWd: 0.81 0.7-1.1 cm LA Diam: 3.70 2.7-3.8/3.0-4.0 cm LAIDs Index: 1.85 1.5-2.3 cm/m2 LV Mass: 184.58 67-162/88-224 g LV Mass Index: 92.29 43-95/49-115 g/m2 LVOT Diam: 1.90 3.0+(-)1.3 cm 2D Systolic Function EF 4C: 55.00 >55% EF 2C: 58.60 >55% EF BiP: 56.70 >55% Mitral Valve MV Pk E: 0.89 MV PK A: 0.83 MV Decel Time: 207.00 E/A: 1.10 E'Lateral: 7.62 E'Medial: 5.33 E/E' Med: 16.60 E/E' Lat: 11.60 PHT: 61.00 MVA PHT: 3.61 Decel [place]: 4.29 Aortic Valve AoV Pk Edilberto: 1.46 AoV Mn Edilberto: 0.91 AoV VTI: 0.30 AoV Pk Grad: 9.00 Aov Mn Grad: 4.00 RAVINDRA Cont.VTI: 2.28 LVOT LVOT Pk Edilberto: 1.04 LVOT Mn Edilberto: 0.78 LVOT VTI: 0.24 LVOT Pk Grad: 4.00 LVOT Mn Grad: 3.00 LVOT Diam: 1.90 LVOT Area: 2.84 Diastolic Function MV Pk E: 0.89 MV Pk A: 0.83 E/A: 1.10 E'Medial: 5.33 E/E' Med: 16.60 E' Laterial: 7.62 E/E' Lat: 11.60 Right Ventricle TAPSE (mm): 32.30 TVS' Edilberto: 14.00 Tricuspid Valve TR Pk Edilberto: 2.14 TR Pk Grad: 18.00 RA Press: 3.00 RVSP: 21.00 Great Vessels Aorta Sinus of Valsalva: 3.00 2.0-3.5 cm Ao Asc: 3.60 2.1-3.4 cm Ao Arch: 3.10 Pulmonary Veins Pulm Vein S/D 1.50 Pulmonary Valve PV Pk Edilberto: 1.10 Peak PV Grad: 5.00 Updated in Other Vendor System with Status of Final Iraj Bartholomew MD electronically signed on 02/27/2025 11:24:42 AM with status of Final
--- OUTSIDE RECORDS SUMMARY | 2025-02-25 17:47 | XMS_ITS | Clinical Summary ---
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
== END ==
LOC: HO.CARD 14:53
PROVIDERS: PCP Family Medicine; Visit Provider Internal Medicine
DX: R00.2 Palpitations (principal)
CPT/HCPCS: 93306

== ENCOUNTER → 2025-02-25 14:56 | Outpatient (BNV) | payer OTHER, SELFPAY | PROVIDERS: PCP Family Medicine; Visit Provider Internal Medicine | DX: R00.2 Palpitations (principal) | CPT/HCPCS: 93306 ==

== ENCOUNTER 2025-03-19 10:58 | Outpatient (AMB) | payer OTHER, SELFPAY ==
--- NOTE | 2025-03-19 08:07 | A.OFFVIS_ITS ---
Intake Visit Reasons: Current Smoker Allergies sulfasalazine Allergy (Intermediate, Verified 02/13/25 21:50) Confusion codeine Allergy (Unknown, Verified 02/13/25 21:50) Unknown HPI HPI Current Smoker: Details: Initial visit for this 49yo smoker with a 30+PYH. Patient started smoking at age 14 for 35 years at 1ppd. . Denies marijuana use. Denies second hand smoke exposure. Denies exposure to chemicals or substances like asbestos. . Denies known family history of lung cancer. Denies personal history of cancers. Denies chest CT in last year. . Denies recent travel outside the [place]. Denies recent respiratory illness or recent hospitalization for respiratory issues. History of positive for COVID. Admits receiving COVID Vaccine. . Denies fever, chills, new/worsening cough, hemoptysis, hoarseness or dysphagia. Denies significant chest pain, significant dyspnea or unintentional weight loss. Patient Lung Cancer Screening Questionnaire reviewed with patient by provider. . Shared Decision Making Completed. Patient meets criteria. Discussed in detail with patient, the risk vs benefit of LDCT screening. Patient consents to proceed with scan. Discussed smoking cessation. [facility] Medical History (Updated 03/19/25 @ 11:03 by Heaven Lima PA-C) Nicotine dependence, cigarettes, uncomplicated LETY II (cervical intraepithelial neoplasia II) (~03/2024) Complex cyst of right ovary Nocturnal hypoxemia Obstructive sleep apnea Hyperlipidemia Low vitamin D level Anemia GERD (gastroesophageal reflux disease) Rheumatoid arthritis Hypothyroidism (acquired) Surgical History (Updated 01/18/25 @ 10:30 by Heaven Lima PA-C) History of loop electrical excision procedure (LEEP) History of cervical biopsy History of lumbar surgery Family History Father No problems noted. Mother CVD (cardiovascular disease) Hypertension Chronic mental illness Social History (Updated 03/19/25 @ 11:03 by Heaven Lima PA-C) Household Members: Significant Other and Children Housing: Apartment Are you a primary child care provider to a significant other at home: No Do you presently have visiting nurse or other home services: No Alcohol intake: never Patient Tobacco Use Status: Current everyday Tobacco user Cigarette Packs Per Day: 1 Cigarettes Per Day: 20.0 Years Smoked: (onset 14yo, 1ppd x 35yrs, 30+PYH) e-Cigarette/Vaping Use: Never Used Second Hand Smoke Exposure: No service: No 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 Cognitive needs: No Hearing needs: No Vision needs: No Female Reproductive History Menstrual Age of Menarche: 11 Assessment & Plan Assessment & Plan (1) Nicotine dependence, cigarettes, uncomplicated: Comment: (onset 14yo, 1ppd x 35yrs, 30+PYH) Code(s): F17.210 - Nicotine dependence, cigarettes, uncomplicated Category: Medical Plan: - SDM visit completed today in office. - Patient meets criteria for LDCT for lung cancer screening purposes and is asymptomatic. - Smoking cessation counseling offered. Patients can always call [phone]. - Will arrange for a LDCT scan of the chest for screening purposes at [facility]. - Risks, benefits, and alternatives were discussed in detail and the patient agrees to proceed. - Risks discussed include but are not limited to: radiation exposure, anxiety during testing and while awaiting results, false negatives, false positives and possibility of additional intervention such as further imaging or surgical procedures for benign disease. - Benefits are obviously detection of lung cancer at an early stage which can lead to improved outcomes. - Discussed the importance of screening program compliance with adherence to yearly LDCT scan as scheduled - or sooner interval scans for personalized screening regimen. - Discussed follow up plan. Our office will send a letter discussing results and if needed set up phone call and office visit based on CT findings. - Patient educated on results categorization and the management decisions for suspicious findings potentially found on the screening LDCT scan. Any patient with a Lung RADS score of 3 or 4 will be reviewed by a multidisciplinary team at [facility] to form a plan of action in regards to scan findings. - If further work up is warranted for a suspicious lung finding this will be followed by the Lung Cancer Screening program in conjunction with the Thoracic Surgery Department at [facility]. - A copy of the office note and LDCT will be sent to the patient's PCP - as well as documentation on any associated further plans of care. - Incidental findings on LDCT are the PCP's responsibility. These findings are indicated with an S finding on the LDCT Assessment. A note discussing the findings will be sent to the PCP who is then responsible for further management. - All questions answered.? Coding Level of Care Code Lung Cancer Screening [id number] Diagnoses Nicotine dependence, cigarettes, uncomplicated F17.210
== END 2025-03-19 13:15 | disposition home or self-care (01) ==
LOC: HO.HPS 10:59
PROVIDERS: PCP Family Medicine; Visit Provider Physician Assistant Medical
DX: F17.210 Nicotine dependence, cigarettes, uncomplicated (principal)
CPT/HCPCS: G0296

== ENCOUNTER 2025-03-19 11:10 | Outpatient (REF) | payer OTHER, SELFPAY ==
--- NOTE | ~2025-03-19 | CT_ITS ---
EXAMINATION: CT LUNG SCREENING HISTORY: F17.210 - Nicotine dependence, cigarettes, uncomplicated TECHNIQUE: Low dose axial images were obtained from the sternal notch to upper abdomen without IV contrast per standard departmental protocol. Sagittal and coronal reformatted images were also obtained and reviewed. One or more of the following techniques was used for dose reduction: Automated exposure control, adjustment of the mA and/or kV according to patient size, use of iterative reconstruction technique. DLP: 57 mGy-cm COMPARISON: There are no prior studies available for comparison. FINDINGS: Lung nodules: There is a 3 mm paramediastinal nodule in the right upper lobe (series 12, image 53). There is are 2 mm nodules more inferiorly in the right upper lobe (series 12, images 69 and 75). There is a 6 x4 mm nodule in the right lower lobe (series 12, image 79). Emphysema: none Coronary Calcification: none Aortic Arch Calcification: none Potentially Significant Incidentals : none Additional Chest Findings: There is no pleural or pericardial effusion. No mediastinal or axillary lymphadenopathy is identified. Visualized upper abdomen: The visualized portions of the liver, spleen, and adrenals have an unremarkable unenhanced appearance. CT/CT lung screening IMPRESSION: No suspicious pulmonary nodules are identified. LUNG-RADS ASSESSMENT: Lung-RADS 2: Benign MANAGEMENT: Continue annual screening with LDCT in 12 months Category S: N/A Electronically signed by: Anoop Davila MD 03/19/2025 12:34 PM [facility]
== END 2025-03-19 11:11 | disposition home or self-care (01) ==
LOC: HO.CT 11:10
PROVIDERS: PCP Family Medicine; Visit Provider Physician Assistant Medical
DX: Z12.2 Encounter for screening for malignant neoplasm of respiratory organs (principal); F17.210 Nicotine dependence, cigarettes, uncomplicated
CPT/HCPCS: 71271; G0296

== ENCOUNTER → 2025-03-19 11:11 | Outpatient (BNV) | payer OTHER, SELFPAY | PROVIDERS: PCP Family Medicine; Visit Provider Radiology Diagnostic Radiology | DX: Z12.2 Encounter for screening for malignant neoplasm of respiratory organs (principal); Z87.891 Personal history of nicotine dependence | CPT/HCPCS: 71271 ==